=== PATIENT | male | born 1940 | race Caucasian/White ===

== ENCOUNTER 2024-06-29 13:33 | Outpatient (AMB) | payer MEDICARE, SELFPAY ==
--- NOTE | 2024-06-29 13:25 | HO.NEPHOV ---
Vital Signs 06/29/24 13:26 Height 6 ft Weight 280 lb BMI 38.0 BP 122/74 Blood Pressure Location Lt brachial Position Sitting Pulse 103 H Pulse Source Pulse Oximeter Pulse Oximetry (%) 93 Oxygen Delivery Method Room Air Intake Visit Reasons: ENP: CKD/ LVM Pit Boss Required: No Accompanied by: Spouse Allergies adhesive tape Allergy (Unknown, Verified 06/29/24 13:26) Hives furosemide Allergy (Unknown, Verified 06/29/24 13:26) Hives onion Allergy (Unknown, Verified 06/29/24 13:26) Hives Medication List - Last Reconciled 06/29/24 by Blake Craig MD albuterol sulfate 90 mcg/actuation 2 inhalations inhalation Q4-6H PRN ascorbic acid (vitamin C) 500 mg PO DAILY aspirin 81 mg PO DAILY benzonatate mg PO DAILY PRN bumetanide 1 mg PO DAILY digoxin 125 mcg PO DAILY wwrepxswjxa-nrkahssik-tjqliwjm 100-62.5-25 mcg (Trelegy Ellipta) 1 ea inhalation DAILY glucosamine sulfate (Glucosamine) 500 mg PO DAILY magnesium oxide 500 mg PO DAILY melatonin 5 mg PO PRN metoprolol tartrate 25 mg PO BID mupirocin calcium 2% appl topical rivaroxaban (Xarelto) 20 mg PO DAILY silver sulfadiazine 1% (SSD) appl topical spironolactone 25 mg PO DAILY zinc acetate (Galzin) 50 mg PO DAILY HPI Comments Details: 84-year-old man with a history of longstanding hypertension congestive heart failure and COPD has been referred for evaluation of chronic kidney disease. Serum creatinine has been staying between 1.4 and 1.6 mg/dL. He was hospitalized at [facility] for COPD. He was on high dose of diuretics which was lowered due to low blood pressure. He also has a history of abdominal aortic aneurysm measuring 4.4 cm. He was seen by vascular surgery. History of chronic venous insufficiency with stasis dermatitis. He is currently being treated by the wound clinic Today was accompanied by his . Jose has history of chronic smoked for several years. He says he still smokes 1 or 2 cigarettes a day. Interestingly he says that he is able to breathe better when he smokes.!! No urinary symptoms like dysuria urgency increased frequency. He has shortness of breath on exertion no chest pain. No nausea or vomiting. [facility] Medical History (Updated 06/29/24 @ 13:45 by Blake Craig MD) Leukocytosis Edema Diabetes Hyperlipidemia Morbid (severe) obesity due to excess calories CKD (chronic kidney disease) Chronic heart failure Chronic obstructive pulmonary disease, unspecified Sepsis Chronic embolism and thrombosis of unspecified deep veins of unspecified lower extremity Chronic ulcer of right foot limited to breakdown of skin Right bundle branch block (RBBB) Atrial fibrillation DVT (deep venous thrombosis) Emphysema lung Mixed hyperlipidemia Essential hypertension Secondary hypercoagulable state Chronic systolic (congestive) heart failure 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 Diabetic foot ulcers Non-pressure chronic ulcer of skin of other sites with unspecified severity Chronic kidney disease, stage 2 (mild) Surgical History History of knee surgery (~2013) History of hernia repair Physical Exam Vital Signs: Last Vital Signs Pulse 103 H 06/29/24 13:26 BP 122/74 06/29/24 13:26 Pulse Ox 93 06/29/24 13:26 Oxygen Delivery Method Room Air 06/29/24 13:26 BMI result Body Mass Index 38.0 Const Nutritional Appearance: obese Neck Neck: Yes supple Resp Auscultation: rhonchi Cardio Palpation: no palpable S3 Heart sounds: no rubs GI Palpation (GI): Soft to palpation Auscultation: normal bowel sounds Neuro Motor exam (neuro): no asterixis Extrem General: Yes edema Results Reviewed Results Reviewed: Cr 1.4 to 1.6 Nephrology Results: No Data to Display Assessment & Plan Assessment & Plan (1) CKD (chronic kidney disease): Code(s): N18.9 - Chronic kidney disease, unspecified Category: Medical Plan Elderly man with a history of longstanding COPD hypertension and congestive heart failure has stage 3 chronic kidney disease. 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 Differential diagnosis would include obstructive uropathy. Recent urine sediments were bland therefore glomerular nephritis or interstitial disease seem unlikely. Recommendations Low-sodium diet Continue current dose of diuretics. Continue overt nephrotoxic agents including NSAIDs. Optimize blood pressure and continue to avoid hypotension. I have initiated workup for CKD including a renal panel along with renal ultrasonogram to assess echogenicity and to rule out hydronephrosis. Basic urine studies were also ordered. Further workup will depend on the outcome of the baseline investigations. Orders: Orders Comprehensive Met. Panel Today N18.9 - Chronic kidney disease, unspecified Total Protein Urine Random Today N18.9 - Chronic kidney disease, unspecified UA and rflx microscopic Today N18.9 - Chronic kidney disease, unspecified Complete Blood Count no Diff Today N18.9 - Chronic kidney disease, unspecified Creatinine Urine Today N18.9 - Chronic kidney disease, unspecified US renal BI Today I10 - Essential (primary) hypertension, N18.9 - Chronic kidney disease, unspecified Coding Level of Care Code New Pt Level 4 (02544) Diagnoses CKD (chronic kidney disease) N18.9
[2024-06-29 13:26] VITALS: BP 122/74; PULSE 103; O2SAT 93; BMI 38.0
--- OUTSIDE RECORDS SUMMARY | 2024-06-29 15:46 | XMS_ITS | Clinical Summary ---
Author Organization [facility] Address [address] [place] [address] Care Team Providers Care Supervisor Machining Name Role Phone Alton Lovelace MD Primary Care Provider [phone] Allergies Active Allergy Reactions Criticality Noted Date Comments Adhesive Tape Rash Low 11/05/2018 Paper tape okay Furosemide Hives,Itching 06/02/2023 Onion Nausea And Vomiting Low 11/05/2018 Medications Medication Sig Dispensed Refills Start Date End Date Status Glucosamine-Chondro it-Vit C-Mn (GLUCOSAMINE CHONDR 1500 COMPLX PO) Take 1 tablet by mouth daily. 0 Active rivaroxaban (Xarelto) 20 MG TABS tablet Take 1 tablet (20 mg total) by mouth every evening. 30 tablet 3 01/27/2021 Active albuterol 108 (90 Base) MCG/ACT inhaler Inhale 2 puffs into the lungs 4 (four) times a day. 0 02/26/2021 Active vitamin C (ASCORBIC ACID) 250 MG tablet Take 2 tablets (500 mg total) by mouth daily. 0 Active aspirin EC 81 MG tablet Take 1 tablet (81 mg total) by mouth daily. 0 Active zinc sulfate (ZINCATE) 220 (50 Zn) MG capsule Take 1 capsule (220 mg total) by mouth daily. 0 Active digoxin (LANOXIN) 125 MCG tabletIndications:L ongstanding persistent atrial fibrillation (HCC) Take 1 tablet (125 mcg total) by mouth daily. 90 tablet 3 08/18/2023 Active SSD 1 % cream 2 (two) times a day. 0 08/31/2023 Active Naftifine HCl 2 % CREA continuous prn. 0 09/20/2023 Active timolol (TIMOPTIC) 0.5 % ophthalmic solution MIX WITH MUPIROCIN OINTMENT AND SILVADENE CREAM AND APPLY MIXTURE TWICE DAILY TO LEG WOUNDS 0 10/17/2023 Active mupirocin (BACTROBAN) 2 % ointment APPLY TWICE DAILY TO LEG WOUNDS 0 10/16/2023 Active Trelegy Ellipta 100-62.5-25 MCG/ACT AEPB 1 puff by Inhaled route daily. 0 10/05/2023 Active Melatonin 5 MG CAPS Take 5 mg by mouth every night at bedtime. 0 Active Magnesium 500 MG CAPS Take 500 mg by mouth daily. 0 Active guaiFENesin (MUCINEX) 600 MG 12 hr tablet Take 1 tablet (600 mg total) by mouth 2 (two) times a day. 14 tablet 0 10/22/2023 Active metoprolol tartrate (LOPRESSOR) 50 MG tablet TAKE 1 TABLET BY MOUTH TWICE DAILY 180 tablet 3 12/02/2023 Active bumetanide (BUMEX) 2 MG tabletIndications:B ilateral leg edema Take 1 tablet (2 mg total) by mouth daily. 1 tablet 0 12/30/2023 Active spironolactone (ALDACTONE) tablet 50 mgIndications:Bilat eral leg edema Take 1 tablet (50 mg total) by mouth daily. 1 tablet 0 12/30/2023 Active mupirocin (BACTROBAN) 2 % cream Apply to affected area 3 times daily 30 g 0 02/03/2024 02/02/2025 Active Active Problems Problem Noted Date Diagnosed Date Sepsis 12/25/2023 COPD exacerbation 10/21/2023 COPD with acute exacerbation 10/21/2023 Community acquired pneumonia of left lower lobe of lung 10/21/2023 Persistent atrial fibrillation 03/16/2023 DVT of lower extremity, bilateral 01/04/2021 Acute bilateral deep vein thrombosis (DVT) of fe moral veins 01/04/2021 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 02/08/2018 Left ventricular hypertrophy 09/05/2016 Hypertension Abnormal ECG Right bundle branch block History of cardiac catheterization Overview: No obstructive CAD Bilateral leg edema Resolved Problems Problem Noted Date Diagnosed Date Resolved Date Paroxysmal atrial fibrillation 02/11/2021 03/16/2023 Family History Medical History Relation Name Comments Heart failure Father Relation Name Status Comments Father Social History Tobacco Use Types Packs/Day Years Used Date Smoking Tobacco: Every Day Cigarettes 0.3 Passive Smoke Exposure: Current Smokeless Tobacco: Never Tobacco Cessation:Ready to Q uit: Not Asked; Counseling Given: Not Answered Alcohol Use Standard Drinks/Week Comments No 0 (1 standard drink = 0.6 oz pur e alcohol) Sex and Gender Information Value Date Recorded Sex Assigned at Male 11/10/2018 10:35 AM EDT Gender Identity Not on file Sexual Orientation Not on file Job Start Date Occupation Industry Not on file Not on file Not on file Last Filed Vital Signs Vital Sign Reading Time Taken Comments Blood Pressure 99/62 03/12/2024 2:00 AM EDT Pulse 116 03/12/2024 2:00 AM EDT Temperature 36.8 ??C (98.3 ??F) 03/12/2024 2:00 AM ED T Respiratory Rate 58 03/12/2024 2:00 AM EDT Oxygen Saturation 94% 03/12/2024 2:06 AM EDT Inhaled Oxygen Concentration - - Weight 124.7 kg (275 lb) 12/28/2023 9:06 AM EDT Height 182.9 cm (6') 12/28/2023 9:08 AM EDT Body Mass Index 37.3 12/28/2023 9:06 AM EDT Plan of Treatment Health Maintenance Due Date Last Done Comments COVID-19 Vaccine (#1) 1940 Pneumococcal Vaccine (1 of 2 - PCV) 1946 Depression Screening 1952 BMI Counseling 1958 Preventative Health Evaluation 1958 Tobacco Cessation Counseling 1958 DTap / Tdap / Td (1 - Tdap) 1959 Shingrix-Zoster Vaccine (1 of 2) 1990 Fall Risk Assessment 2005 RSV Adult > 60+ Yrs or Pregn ant (1 - 1-dose 75+ series) 2015 Influenza Vaccine (#1) 2024 Hepatitis B Vaccines Aged Out No long er eligible based on patient's age to complete this topic RSV Ped < 20 months Aged Out No longe r eligible based on patient's age to complete this topic Medical Devices Implanted Type Area Outbound Sales Agent Device Identifier Shelf Expiration Date Model / Serial / Lot Lens Acrysof Iq Natrl 0d +22.5d L 13mm 6mm Acrylic 118.7 A - [id number] - [id number] Implanted:Qty: 1 on 11/10/2018 by Rashard Villalobos MD at [facility] Location Left: Eye [employer] 09/28/2022 [id number] / [id number] / Lens Acrysof 0d +23d L 13mm 6mm Acrylic 118.7 A - [id number] - [id number] Implanted:Qty: 1 on 11/16/2018 by Rashard Villalobos MD at 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 Code Status History Code Status Date Activated Date Inactivated Comments DNR 12/25/2023 2:11 PM 12/26/2023 8:19 PM This code status was ascertained in the following way: patient. Full Code 12/25/2023 1:52 PM 12/25/2023 2:11 PM This code status was ascertained in the following way: patient. Full Code 10/21/2023 4:40 PM 10/22/2023 7:21 PM This code status was ascertained in the following way: discussion with patient . Full Code 01/04/2021 9:14 PM 01/05/2021 11:06 PM This c ode status was ascertained in the following way: Discussed . Care Teams Supervisor Machining Relationship Specialty Start Date End Date Alton Lovelace MD [address] [place] [address] PCP - General Internal Medicine 07/20/15
--- OUTSIDE RECORDS SUMMARY | 2024-06-29 15:46 | XMS_ITS | Encounter Summary ---
Author Organization [facility] Address [address] [place] [address] Care Team Providers Care Stove Mechanic Name Role Phone Alton Lovelace MD Unavailable [phone] Alton Lovelace MD Primary Care Provider Eric Barth MD Unavailable [phone] Encounter Details Date Type Department Care Team (Late st Contact Info) Description 12/16/2023 Scanned Document [facility] [address] [phone] Primary Care, Scan Social History Tobacco Use Types Packs/Day Years Used Date Smoking Tobacco: Never Assessed Sex and Gender Information Value Date Recorded Sex Assigned at Male 12/16/2023 1:08 PM EDT Gender Identity Male 12/16/2023 1:08 PM EDT Sexual Orientation Heterosexual (straight) 12/15 1:08 PM EDT documented as of this encounter Plan of Treatment Upcoming Encounters Date Type Department Care Team (Late st Contact Info) Description 08/22/2024 11:20 AM EDT Office Visit [facility] [address] [phone] Eric Barth MD [address] [id number] 10/06/2024 11:00 AM EDT Appointment [facility] [place] [address] [place] [id number] Eric Barth MD 7 [facility] [address] [place] [address] documented as of this encounter Visit Diagnoses Not on filedocumented in this encounter Additional Health Concerns Infection Onset Date Last Indicated Resolved Time R/O Respiratory Disease 03/12/2024 03/12/202403/01 11:42 PM EDT documented as of this encounter Care Teams Stove Mechanic Relationship Specialty Start Date End Date Alton Lovelace MD [address] [place] [address] PCP - APNCT [employer] Attributed 06/01/22 Alton Lovelace MD [address] [place] [address] PCP - General Internal Medicine 12/16/23 Eric Barth MD [address] [place] [address] Primary Hide Buffer Cardiovascular Disease 12/24/23 documented as of this encounter
--- OUTSIDE RECORDS SUMMARY | 2024-06-29 15:46 | XMS_ITS | Encounter Summary ---
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 (CMS/HCC) (Primary Dx); 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 (CMS/HCC); Lymphedema Social History Tobacco Use Types Packs/Day Years Used Date Smoking Tobacco: Every Day Cigarettes Smokeless Tobacco: Never Alcohol Use Standard Drinks/Week Comments No 0 (1 standard drink = 0.6 oz pur e alcohol) Sex and Gender Information Value Date Recorded Sex Assigned at Not on file Gender Identity Not on file Sexual Orientation Not on file Job Start Date Occupation Industry Not on file Not on file Not on file documented as of this encounter Last Filed Vital Signs Vital Sign Reading Time Taken Comments Blood Pressure 130/75 06/21/2024 12:48 PM EST Pulse 92 06/21/2024 12:48 PM EST Temperature 36.9 ??C (98.4 ??F) 06/21/2024 12:[address] Respiratory Rate - - Oxygen Saturation - - Inhaled Oxygen Concentration - - Weight - - Height - - Body Mass Index - - documented in this encounter Ordered Prescriptions Prescription Sig Dispensed Refills Start Date End Da te lidocaine (XYLOCAINE) 4 % external solution Apply topically 1 (one) time each day. 100 mL 1 06/21/2024 mupirocin (BACTROBAN) 2 % ointment Apply topically 1 (one) time each day. 30 g 06/21/2024 07/21/2024 documented in this encounter Progress Notes * Chantal [facility] RN - 06/21/2024 12:30 PM EST PHYSICIAN ORDERS Go to ER if present with fever, shaking, chills, increased redness, or excess drainage. If you have any questions or concerns, please contact the wound center at Dept: [phone] Edema Control: Compression/Edema control: Medium Compression-Spandagrip (10-20 mmHg)Apply first thing in the morning, may remove at bedtime, unless otherwise directed. Avoid prolonged standing in one place for extended periods of time. Elevate leg(s) above level of heart when seated. Hand Hygiene: (W)codi hands before and after wound care. Call Wound Center at Dept: [phone] you have signs and symptoms of infection such as fever, chills, unusual or increased drainage, increasing odor, or unusual redness. WOUND #1 Right medial ankle Wound Cleansing & Dressings: Muciprocin 2% to wound bed Adaptic alginate, abd, kerlix,Tubi G Every other day WOUND #2 Left medial ankle Wound Cleansing & Dressings: Muciprocin 2% to wound bed Adaptic alginate, abd, kerlix, Tubi G Every other day WOUND #3 Left medial ankle Wound Cleansing & Dressings: Muciprocin 2%o wound bed Adaptic alginate, abd, kerlix, Tubi G Every other day Diet: Increase protein intake Misc/Additional orders: Misc/Additional orders: Smoking cessation was encouraged. Chantal [facility] RN Wound Care Supplies (Order ID: [id number]) Order Date: 04/06/2024 Diagnosis: Venous (peripheral) insufficiency (I87.2) Quantity: 1 Physician orders applied at clinic The rmkq-ta-[id number] evaluation was completed by: Sukhjinder Trotter MD Left leg venous ulcer Wound Care Supplies: Adaptic Wound Care Supplies: Aquacel AG (hydro-fiber) Wound Care Supplies: Abdominal Pads Wound Care Supplies: Kerlix (large) Wound Care Supplies: Medipore tape Compression: TUBI F Adaptic Size: 3x8 Days Supply: 30 Wound Care Refill Qty: 1 Debridement Performed: Yes Wound Drainage: Moderate Dispense As Written (NASH)? 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 Office Visit Visit Date: 06/21/2024 Patient Name: Jose Gonzáles Date of : 1940 PCP: Alton Lovelace MD HPI: Jose Gonzáles is a 84 y.o. male presents to the wound care center for follow up evaluation and management of right lower extremity wound. He reports new wounds to the right medial and lateral ankle Denies has been unable to tolerate his multilayer compression dressings. He has a history of A-fib, hyperlipidemia and hypertension. Past Medical History: Diagnosis Date Abnormal ECG DX:Abnormal ECG Atrial fibrillation (CMS/HCC) DX:Atrial fibrillation (HCC) Bilateral leg edema DX:Bilateral leg edema Cataract DX:Cataract DVT (deep venous thrombosis) (CMS/HCC) DX:DVT (deep venous thrombosis) (HCC) History of cardiac catheterization 2011 DX:History of cardiac catheterization;COMMENT:No obstructive CAD Hypertension DX:Hypertension Mixed hyperlipidemia DX:Mixed hyperlipidemia Right bundle branch block DX:Right bundle branch block Patient Active Problem List Diagnosis Abnormal ECG Bilateral leg edema Acute bilateral deep vein thrombosis (DVT) of femoral veins (CMS/HCC) 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 ascorbic acid (VITAMIN C) 250 mg tablet Take 500 mg by mouth daily. aspirin 81 mg EC tablet Take 81 mg by mouth daily. betamethasone dipropionate (DIPROSONE) 0.05 % cream APPLY TO PROBLEM AREAS TWICE DAILY NO LONGER THAN 2 WEEKS THEN DAILY NEEDED bumetanide (BUMEX) 1 mg tablet Take 1 tablet (1 mg total) by mouth daily. digoxin (LANOXIN) 125 mcg (0.125 mg) tablet Take 1 tablet (125 mcg total) by mouth daily. qpfxmomalhg-pkkpobcffvqy-hljljkgzaj (Trelegy Ellipta) 200-62.5-25 mcg inhaler Take 1 puff by mouth daily. furosemide (LASIX) 20 mg tablet Take 1 tablet (20 mg total) by mouth daily. furosemide (LASIX) 40 mg tablet Take 1 tablet (40 mg total) by mouth daily. glucosamine/chondro major A/C/Mn (QNPOVUJLJQG-WWQELZKIE-WLS C-MN ORAL) Take by mouth. hydrOXYzine pamoate (VistariL) 25 mg capsule Take 1 capsule (25 mg total) by mouth 3 (three) times a day if needed for itching for up to 10 days. 30 capsule 0 magnesium oxide (MAG-OX) 400 mg (241.3 elemental magnesium) tablet Take 1 tablet (400 mg total) by mouth daily. metoprolol tartrate (LOPRESSOR) 50 mg tablet TAKE 1 TABLET BY MOUTH TWICE DAILY rivaroxaban (XARELTO) 20 mg tablet Take 1 tablet (20 mg total) by mouth every evening. spironolactone (ALDACTONE) 25 mg tablet Take 0.5 tablets (12.5 mg total) by mouth daily. timolol (TIMOPTIC) 0.5 % ophthalmic solution MIX WITH MUPIROCIN OINTMENT AND SILVADENE CREAM AND APPLY MIXTURE TWICE DAILY TO LEG WOUNDS zinc sulfate (ZINCATE) 220 mg (50 mg elemental zinc) capsule Take 1 capsule (220 mg total) by mouthdaily. No current facility-administered medications on file prior to visit. ROS Review of Systems Constitutional: Negative. HENT: Negative. Respiratory: Negative. Cardiovascular: Positive for leg swelling. Gastrointestinal: Negative. Skin: Positive for wound. Neurological: Negative. Psychiatric/Behavioral: Negative. Vital Signs: Visit Vitals BP 130/75 (BP Location: Left arm, Patient Position: Sitting) Pulse 92 Temp 36.9 ??C (98.4 ??F) (Tympanic) Smoking Status Every Day PHYSICAL EXAM Physical Exam Constitutional: Appearance: Normal appearance. HENT: Head: Normocephalic. Cardiovascular: Rate and Rhythm: Normal rate. Pulmonary: Effort: Pulmonary effort is normal. Abdominal: General: Abdomen is flat. Musculoskeletal: General: Normal range of motion. Skin: General: Skin is warm and dry. Findings: Wound present. Neurological: Mental Status: He is alert. Psychiatric: Mood and Affect: Mood normal. Wound: As described below. WOUND ASSESSMENT If photograph of wound not visible on this note, please check under Media tab. Wound Venous Ulcer 04/06/24 Pretibial Left (Active) Wound Image 06/21/24 1301 Wound Bed Tissue Assessment Red 06/21/24 1200 Shape Irregular 06/21/24 1200 Wound Length (cm) 4 cm 06/21/24 1200 Wound Width (cm) 4.5 cm 06/21/24 1200 Wound Surface Area (cm^2) 18 cm^2 06/21/24 1200 Wound Depth (cm) 0.1 cm 06/21/24 1200 Wound Volume (cm^3) 1.8 cm^3 06/21/24 1200 Wound Healing % 95 06/21/24 1200 Drainage Description Serosanguineous 06/21/24 1200 Drainage Amount Moderate 06/21/24 1200 Treatments Site care;Cleansed 06/21/24 1200 Dressing Changed Changed 06/21/24 1200 Dressing Status Old drainage 06/21/24 1200 Wound Bed Granulation (%) 100 % 06/21/24 1200 Wound Bed Slough (%) 10 % 05/04/24 1200 Wound Bed Eschar (%) 25 % 04/20/24 1100 Tunneling 0 cm 04/06/24 1502 Undermining 0 cm 04/06/24 1502 Edges Attached edges 06/21/24 1200 Wound Venous Ulcer 06/07/24 Pretibial Right (Active) Wound Image 06/21/24 1300 Shape Irregular 06/07/24 1255 Wound Length (cm) 0 cm 06/21/24 1200 Wound Width (cm) 0 cm 06/21/24 1200 Wound Surface Area (cm^2) 0 cm^2 06/21/24 1200 Wound Depth (cm) 0 cm 06/21/24 1200 Wound Volume (cm^3) 0 cm^3 06/21/24 1200 Wound Healing % 100 06/21/24 1200 Drainage Description Serosanguineous 06/07/24 1255 Drainage Amount Moderate 06/07/24 1255 Treatments Cleansed;Site care 06/07/24 1255 Wound Bed Granulation (%) 100 % 06/07/24 1255 Edges Well-defined edges 06/07/24 1255 Wound Venous Ulcer 06/21/24 Ankle Right;Medial (Active) Wound Image 06/21/24 1301 Ana Rosa-Wound Assessment Macerated 06/21/24 1301 Shape Irregular 06/21/24 1301 Wound Length (cm) 2.8 cm 06/21/24 1301 Wound Width (cm) 1.4 cm 06/21/24 1301 Wound Surface Area (cm^2) 3.92 cm^2 06/21/24 1301 Wound Depth (cm) 0.1 cm 06/21/24 1301 Wound Volume (cm^3) 0.392 cm^3 06/21/24 1301 Drainage Description Serosanguineous 06/21/24 1301 Drainage Amount Large 06/21/24 1301 Treatments Cleansed;Site care 06/21/24 1301 Wound Bed Granulation (%) 50 % 06/21/24 1301 Wound Bed Slough (%) 100 % 06/21/24 1301 Edges Attached edges 06/21/24 1301 Wound Venous Ulcer 06/21/24 Ankle Right;Lateral (Active) Wound Image 06/21/24 1302 Ana Rosa-Wound Assessment Macerated 06/21/24 1302 Wound Length (cm) 5.6 cm 06/21/24 1302 Wound Width (cm) 1.3 cm 06/21/24 1302 Wound Surface Area (cm^2) 7.28 cm^2 06/21/24 1302 Wound Depth (cm) 0.1 cm 06/21/24 1302 Wound Volume (cm^3) 0.728 cm^3 06/21/24 1302 Drainage Description Serosanguineous 06/21/24 1302 Drainage Amount Copious 06/21/24 1302 Treatments Cleansed;Site care 06/21/24 1302 Wound Bed Slough (%) 100 % 06/21/24 1302 Edges Attached edges 06/21/24 1302 Pertinent Labs: Albumin Date Value Ref Range Status 05/13/2024 4.0 3.5 - 5.0 g/dL Final WBC Date Value Ref Range Status 05/13/2024 12.3 (H) 4.0 - 10.5 K/mcL Final Hemoglobin A1C Date Value Ref Range Status 05/13/2024 6.1 (H) <5.7 % Final Debridement Note: Debridement Venous Ulcer Right;Medial Ankle Performed by: Blossom Bradley NP Authorized by: Blossom Bradley NP Associated wounds: Wound Venous Ulcer 06/21/24 Ankle Right;Medial Consent: Consent obtained: Written Consent given by: Patient Risks discussed: Yes Time out: Immediately prior to the procedure a time out was called Time out performed at: 06/21/2024 2:00 PM Debridement Details: Performed by: DARINEL Type: selective Pain control: Lidocaine 5% Pain control administration: topical anesthesia Time taken: 06/21/2024 1:01 PM Length (cm): 2.8 Width (cm): 1.4 Depth (cm): 0.1 Area (cm^2): 3.92 Time taken: 06/21/2024 1:02 PM Length (cm): 2.8 Width (cm): 1.4 Depth (cm): 0.1 Percent Debrided (%): 100 Surface Area (cm^2): 3.92 Area Debrided (cm^2): 3.92 Volume (cm^3): 0.39 Tissue and other material debrided: dermis and epidermis Devitalized tissue debrided: exudate, fibrin and slough Instrument: Curette Amount of bleeding: none Hemostasis obtained with: Not applicable Procedural pain: 0 Post-procedural pain: 0 Response to treatment: Procedure was tolerated well PLAN OF CARE 1. 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 (CMS/HCC) 3. Lymphedema Provider Orders: Patient Instructions PHYSICIAN ORDERS Go to ER if present with fever, shaking, chills, increased redness, or excess drainage. If you have any questions or concerns, please contact the wound center at Dept: [phone] Edema Control: Compression/Edema control: Medium Compression-Spandagrip (10-20 mmHg)Apply first thing in the morning, may remove at bedtime, unless otherwise directed. Avoid prolonged standing in one place for extended periods of time. Elevate leg(s) above level of heart when seated. Hand Hygiene: (W)codi hands before and after wound care. Call Wound Center at Dept: [phone] you have signs and symptoms of infection such as fever, chills, unusual or increased drainage, increasing odor, or unusual redness. WOUND #1 Right medial ankle Wound Cleansing & Dressings: Muciprocin 2% to wound bed Adaptic alginate, abd, kerlix,Tubi G Every other day WOUND #2 Left medial ankle Wound Cleansing & Dressings: Muciprocin 2% to wound bed Adaptic alginate, abd, kerlix, Tubi G Every other day WOUND #3 Left medial ankle Wound Cleansing & Dressings: Muciprocin 2%o wound bed Adaptic alginate, abd, kerlix, Tubi G Every other day Diet: Increase protein intake Misc/Additional orders: Misc/Additional orders: Smoking cessation was encouraged. Chantal [facility] RN Wound Care Supplies (Order ID: [id number]) Order Date: 04/06/2024 Diagnosis: Venous (peripheral) insufficiency (I87.2) Quantity: 1 Physician orders applied at clinic The [id number]-[id number] evaluation was completed by: Sukhjinder Trotter MD Left leg venous ulcer Wound Care Supplies: Adaptic Wound Care Supplies: Aquacel AG (hydro-fiber) Wound Care Supplies: Abdominal Pads Wound Care Supplies: Kerlix (large) Wound Care Supplies: Medipore tape Compression: TUBI F Adaptic Size: 3x8 Days Supply: 30 Wound Care Refill Qty: 1 Debridement Performed: Yes Wound Drainage: Moderate Dispense As Written (NASH)? Yes Frequency of Dressing Change: 3x per week Face to face evaluation was performed on: 04/06/2024 Goals for the wound(s): -Healing goal is a reduction in wound volume of 30% at 4 weeks, 50% at 8 weeks, 75% at 12 weeks, and 100% at 16 weeks. Will continually reassess and adjust the treatment strategy if not on the healing curve. Potential to heal: Good potential to Heal Plan: Would benefit from lymphedema pumps to manage swelling. Change to mupirocin ointment as contact All questions were answered to his satisfaction. He was counseled regarding my impressions, instructions for management, and the importance of compliance with treatment. The wound will be continually assessed for the presence of infection. If infection is suspected, appropriate intervention or referral to infection disease specialist will be considered. The patient has been educated concerning the need for increased protein in his diet for wound healing. It is also recommended that he work with his PCP to optimize his metabolic status and glycemic control as appropriate. Follow up in about 1 week (around 06/28/2024), or if symptoms worsen or fail to improve. 06/21/2024 4:05 PM EST Blossom Bradley NP documented in this encounter Plan of Treatment Upcoming Encounters Date Type Department Care Team (Late st Contact Info) Description 07/01/2024 2:00 PM EST Office Visit [facility] [address] [place] [address] Catarina Jackson PA [address] [place] [address] documented as of this encounter Goals Goal Patient Goal Type Associated Problems Recent Progress Patient-Stated? Author Decrease Wound Volume by X% by date (in notes) Care Plan Impaired Tissue Luca Urias RN Patient and Caregiver Understand Wound Care Education Care Plan Impaired Tissue No Luca Rivas sugar house supervisor volume breakdown reduced by X% by week 4 Care Plan Impaired Tissue No Luca Rivas, sugar house supervisor volume breakdown reduced by X% by week 8 Care Plan Impaired Tissue No Luca Rivas sugar house supervisor volume breakdown reduced by X% by week 12 Care Plan Impaired Tissue On track( 024 3:43 PM EST) Luca Urias RN Note: Wound will be by 80% in 12 weeks Quit using tobacco (cigarettes, smokeless, etc) Care Plan Education needed on impact of smoking on wound No Luca Rivas RN Reduce tobacco use (cigarettes, smokeless, etc) Care Plan Education needed on impact of smoking on wound No Luca Rivas RN Decrease Wound Volume by X% by date (in notes) Care Plan Education needed on impact of smoking on wound No Luca Rivas RN Patient and Caregiver Understand Wound Care Education Care Plan Education needed related to ulceration/compr omised skin integrity. 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 06/21/2024 ??4:18 PM Debridement Venous Ulcer Right;Medial Ankle Performed by: Blossom Bradley NP Authorized by: Blossom Bradley NP ?? Associated wounds: Wound Venous Ulcer 06/21/24 Ankle Right;Medial Consent: ??Consent obtained: ??Written ??Consent given by: ??Patient ??Risks discussed: Yes ?? Time out: Immediately prior to the procedure a time out was called ?? Time out performed at: ??06/21/2024 2:00 PM Debridement Details: ??Performed by: ??OPERATOR VACUUM ??Type: selective ?Pain control: ??Lidocaine 5% ??Pain control administration: topical anesthesia ?Time taken: ??06/21/2024 1:01 PM ??Length (cm): ??2.8 ??Width (cm): ??1.4 ??Depth (cm): ??0.1 ??Area (cm^2): ??3.92 ??Time taken: ??06/21/2024 1:02 PM ??Length (cm): ??2.8 ??Width (cm): ??1.4 ??Depth (cm): ??0.1 ??Percent Debrided (%): ??100 ??Surface Area (cm^2): ??3.92 ??Area Debrided (cm^2): ??3.92 ??Volume (cm^3): ??0.39 ??Tissue and other material debrided: dermis and epidermis ?Devitalized tissue debrided: exudate, fibrin and slough ?Instrument: ??Curette ??Amount of bleeding: none ?Hemostasis obtained with: ??Not applicable ??Procedural pain: ??0 ??Post-procedural pain: ??0 ??Response to treatment: ??Procedure was tolerated well Blossom Bradley OPERATOR VACUUM IN CLINIC/BEDSIDE OR DERABLES documented in this encounter Visit Diagnoses Diagnosis 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 04/06/2024 documented as of this encounter Care Teams Size Worker Relationship Specialty Start Date End Date Alton Lovelace MD [address] [place] [phone] PCP - General Internal Medicine 07/20/15 documented as of this encounter
--- OUTSIDE RECORDS SUMMARY | 2024-06-29 15:46 | XMS_ITS | Encounter Summary ---
Author Organization [facility] Address [address] [place] [address] Care Team Providers Care Bale Tie Machine Operator Name Role Phone Alton Lovelace MD Unavailable [phone] Alton Lovelace MD Primary Care Provider [phone] Eric Barth MD Unavailable [phone] Encounter Details Date Type Department Care Team (Late st Contact Info) Description 03/07/[address] [facility] [address] [address] Eric Barth MD [address] [place] [id number] Social History Tobacco Use Types Packs/Day Years Used Date Smoking Tobacco: Some Days Cigarettes Smokeless Tobacco: Never Alcohol Use Standard Drinks/Week Comments Never 0 (1 standard drink = 0.6 oz [...] Description 08/22/2024 11:20 AM EDT Office Visit [facility] [address] [address] Eric Barth MD 7 [facility] [address] [place] [address] 10/06/2024 11:00 AM EDT Appointment [facility] [address] [place] [phone] Eric Barth MD 7 [facility] [address] [place] [address] documented as of this encounter Visit Diagnoses Not on filedocumented in this encounter Additional Health Concerns Infection Onset Date Last Indicated Resolved Time R/O Respiratory Disease 03/12/2024 03/12/202403/01 11:42 PM EDT documented as of this encounter Care Teams Bale Tie Machine Operator Relationship Specialty Start Date End Date Alton Lovelace MD [address] [place] [address] PCP - APNCT [employer] Attributed 06/01/22 Alton Lovelace MD [address] [place] [address] PCP - General Internal Medicine 12/16/23 Eric Barth MD [address] [place] [phone] Primary Visitor Services Associate Cardiovascular Disease 12/24/23 documented as of this encounter
--- OUTSIDE RECORDS SUMMARY | 2024-06-29 15:46 | XMS_ITS | Continuity of Care Document ---
Author Organization [facility] Address [address] [facility] [address] [place] [phone] Phone Care Team Providers Care Extrusion Die Coordinator Name Role Phone Judi STEELE, Jogre Unavailable Unavailable Advance Directives Directive Yes / No Effective Date File Name No Information Encounters Encounter Description Practice Location Reason(s) For Visit Diagnoses Date Provider Providers Copied on Encounter [facility], [address] [facility] [address], [place], [place], [id number], [place] tel:[phone] [facility] No Information 2 Judi Patel. [address] [facility] [address], [place], [address], [place]. tel:[phone] Family History Family Member Type Diagnosis Age At Onset No Information Payers Payer name Insurance type Covered green party ID Authoriza tion(s) No Information Social History Type Description Quantity Date Captured Comments Sex Unknown Smoking Status No Information Chief Complaint And Reason For Visit No Information Reason For Referral Reason For Referral No Information History Of Present Illness Encounter Date Complaint History Of Prese nt Illness No Information Functional Status Date Functional Assessmen t No Information Instructions Date Instruction Additional Infor mation No Information Assessments Type Assessment Date No Information Patient Care Teams Name Effective Dates (start - stop) Status Members No Information
--- OUTSIDE RECORDS SUMMARY | 2024-06-29 15:46 | XMS_ITS ---
Author Name [facility] Organization Unknown Results Test Name/Text Value Interpretation Date Range Source POC Glucose 127mg/dL Above high normal [id number] 65 - 99 [facility] Magnesium SerPl-mCnc 2.7mg/dL Normal [id number] 1.6 - 2.7 [facility] AST SerPl-cCnc 19U/L Normal [id number] 10 - 55 [facility] ALT SerPl-cCnc 25U/L Normal [id number] 10 - 55 [facility] Creat SerPl-mCnc 1.4mg/dL Above high normal [id number] 0. 5 - 1.3 [facility] Globulin Ser Calc-mCnc 3g/dL Normal [id number] 1.5 - 3.9 [facility] CO2 SerPl-sCnc 24mmol/L Normal [id number] 22 - 33 [facility] Albumin/Glob SerPl 1.2Ratio Normal [id number] 1 - 3 [facility] Anion Gap Bld-sCnc 9 Normal [id number] 7 - 17 [facility] Potassium SerPl-sCnc 4.6mmol/L Normal [id number] 3.4 - 5.3 [facility] Bilirub SerPl-mCnc 0.2mg/dL Normal [id number] 0.2 - 1 [facility] Calcium SerPl-mCnc 9.1mg/dL Normal [id number] 8.7 - 10.5 [facility] BUN SerPl-mCnc 48mg/dL Above high normal [id number] 8 - 21 [facility] ALP SerPl-cCnc 75U/L Normal [id number] 45 - 128 HH CCT GFR/BSA.pred SerPlBld TTK-GXQ-XyELdy 50 Below low normal [id number] 59 - [facility] Chloride SerPl-sCnc 105mmol/L Normal [id number] 98 - 107 [facility] BUN/Creat SerPl 34Ratio Above high normal [id number] 10 - 25 [facility] Albumin SerPl-mCnc 3.6g/dL Normal [id number] 3.4 - 4. 8 [facility] Prot SerPl-mCnc 6.6g/dL Normal [id number] 6.3 - 8.3 H [facility] Glucose SerPl-mCnc 132mg/dL Above high normal [id number] 65 - 99 [facility] Sodium SerPl-sCnc 138mmol/L Normal [id number] 136 - 145 [facility] Neutrophils num Bld Auto 15.14Thou/uL Above high normal [id number] 2 - 7.5 [facility] Monocytes num Bld Auto 0.99Thou/uL Normal [id number] 0.2 - 1.5 [facility] Eosinophil num Bld Auto 0Thou/uL Normal [id number] 0 - 0.7 [facility] WBC num Bld Auto 17.7Thou/uL Above high normal [id number] 4 - 11 [facility] MCHC RBC Auto-mCnc 32g/dL Normal [id number] 30 - 36 [facility] Monocytes/leuk NFr Bld Auto 5.6% Normal [id number] [facility] Hct VFr Bld Auto 41.5% Normal [id number] 39 - 54 [facility] RBC num Bld Auto 4.1Mil/uL Below low normal [id number] 4.5 - 6.2 [facility] RDW RBC Auto-Rto 13.6% Normal [id number] 11.5 - 14.5 [facility] PMV Bld Auto 9.2fL Normal [id number] 7.5 - 12.5 [facility] Eosinophil/leuk NFr Bld Auto 0% Normal [id number] [facility] MCH RBC Qn Auto 32.4pg Above high normal [id number] 27 - 31 [facility] Basophils/leuk NFr Bld Auto 0.2% Normal [id number] [facility] Basophils num Bld Auto 0.03Thou/uL Normal [id number] 0 - 0.2 [facility] Platelet num Bld Auto 235Thou/uL Normal [id number] 150 - 450 [facility] Neutrophils/leuk NFr Bld Auto 85.4% Normal [id number] [facility] MCV RBC Auto 101fL Above high normal [id number] 80 - 1 00 [facility] Lymphocytes/leuk NFr Bld Auto 8% Normal [id number] [facility] Lymphocytes num Bld Auto 1.42Thou/uL Below low normal [id number] 1.5 - 4.5 [facility] Imm Granulocytes/leuk NFr Bld Auto 0.8% Normal [id number] [facility] Hgb Bld-mCnc 13.3g/dL Normal [id number] 13 - 17.7 [facility] T Imm Granulocytes num Bld Auto 0.15Thou/uL Above high normal [id number] 0 - 0.1 [facility] POC Glucose 146mg/dL Above high normal [id number] 65 - 99 [facility] POC Glucose 167mg/dL Above high normal [id number] 65 - 99 [facility] POC Glucose 164mg/dL Above high normal [id number] 65 - 99 [facility] Digoxin SerPl-mCnc 0.6ug/L Normal [id number] 0.5 - 1. 1 [facility] POC Glucose 168mg/dL Above high normal [id number] 65 - 99 [facility] POC Glucose 155mg/dL Above high normal [id number] 65 - 99 [facility] Calcium SerPl-mCnc 9.5mg/dL Normal [id number] 8.7 - 10.5 [facility] BUN SerPl-mCnc 43mg/dL Above high normal [id number] 8 - 21 [facility] Creat SerPl-mCnc 1.5mg/dL Above high normal [id number] 0. 5 - 1.3 [facility] GFR/BSA.pred SerPlBld CEZ-DSR-TwMDeu 46 Below low normal [id number] 59 - [facility] Chloride SerPl-sCnc 99mmol/L Normal [id number] 98 - 107 [facility] BUN/Creat SerPl 29Ratio Above high normal [id number] 10 - 25 [facility] CO2 SerPl-sCnc 23mmol/L Normal [id number] 22 - 33 HH CCT Anion Gap Bld-sCnc 12 Normal [id number] 7 - 17 [facility] Potassium SerPl-sCnc 4.7mmol/L Normal [id number] 3.4 - 5.3 [facility] Glucose SerPl-mCnc 170mg/dL Above high normal [id number] 65 - 99 [facility] Sodium SerPl-sCnc 134mmol/L Below low normal [id number] 13 6 - 145 [facility] Magnesium SerPl-mCnc 2.5mg/dL Normal [id number] 1.6 - 2.7 [facility] Neutrophils num Bld Auto 20.45Thou/uL Above high normal [id number] 2 - 7.5 [facility] Monocytes num Bld Auto 0.8Thou/uL Normal [id number] 0.2 - 1.5 [facility] Eosinophil num Bld Auto 0Thou/uL Normal [id number] 0 - 0.7 [facility] WBC num Bld Auto 22.8Thou/uL Above high normal [id number] 4 - 11 [facility] MCHC RBC Auto-mCnc 32.5g/dL Normal [id number] 30 - 36 [facility] Monocytes/leuk NFr Bld Auto 3.5% Normal [id number] [facility] Hct VFr Bld Auto 40% Normal [id number] 39 - 54 [facility] RBC num Bld Auto 4.01Mil/uL Below low normal [id number] 4. 5 - 6.2 [facility] RDW RBC Auto-Rto 13.3% Normal [id number] 11.5 - 14.5 [facility] PMV Bld Auto 9.4fL Normal [id number] 7.5 - 12.5 [facility] Eosinophil/leuk NFr Bld Auto 0% Normal [id number] [facility] MCH RBC Qn Auto 32.4pg Above high normal [id number] 27 - 31 [facility] Basophils/leuk NFr Bld Auto 0.2% Normal [id number] [facility] Basophils num Bld Auto 0.04Thou/uL Normal [id number] 0 - 0.2 [facility] Platelet num Bld Auto 245Thou/uL Normal [id number] 150 - 450 [facility] Neutrophils/leuk NFr Bld Auto 89.9% Normal [id number] [facility] MCV RBC Auto 100fL Normal [id number] 80 - 100 [facility] T Lymphocytes/leuk NFr Bld Auto 5.5% Normal [id number] [facility] Lymphocytes num Bld Auto 1.25Thou/uL Below low normal [id number] 1.5 - 4.5 [facility] Granulocytes/leuk NFr Bld Auto 0.9% Normal [id number] [facility] Hgb Bld-mCnc 13g/dL Normal [id number] 13 - 17.7 [facility] T Imm Granulocytes num Bld Auto 0.21Thou/uL Above high normal [id number] 0 - 0.1 [facility] POC Glucose 164mg/dL Above high normal [id number] [facility] POC Glucose 238mg/dL Above high normal [id number] [facility] FLUAV RNA Nph Ql Non-probe PCR Normal [id number] [facility] HPIV2 RNA Nph Ql Non-probe PCR Normal [id number] [facility] B pert tox prom reg Nph Ql Non-probe PCR Normal [id number] [facility] HCoV 229E RNA Nph Ql Non-probe PCR Normal [id number] [facility] HCoV OC43 RNA Nph Ql Non-probe PCR Normal [id number] [facility] FLUBV RNA Nph Ql Non-probe PCR Normal [id number] [facility] HPIV1 RNA Nph Ql Non-probe PCR Normal [id number] [facility] 2019-nCOV RNA Normal [id number] [facility] CT M pneumo DNA Nph Ql Non-probe PCR Normal [id number] [facility] Bordetella parapertussis Normal [id number] [facility] hMPV RNA Nph Ql Non-probe PCR Normal [id number] [facility] HCoV HKU1 RNA Nph Ql Non-probe PCR Normal [id number] [facility] HAdV DNA Nph Ql Non-probe PCR Normal [id number] [facility] C pneum DNA Nph Ql Non-probe PCR Normal [id number] [facility] RV+EV RNA Nph Ql Non-probe PCR Normal [id number] [facility] HPIV4 RNA Nph Ql Non-probe PCR Normal [id number] [facility] HCoV NL63 RNA Nph Ql Non-probe PCR Normal [id number] [facility] HPIV3 RNA Nph Ql Non-probe PCR Normal [id number] [facility] RSV RNA Nph Ql Non-probe PCR Normal [id number] [facility] POC Glucose 194mg/dL Above high normal 65 - 99 [facility] POC Glucose 181mg/dL Above high normal [id number] 65 - 99 [facility] Lactate SerPl-sCnc 2.7mmol/L Above high normal [id number] 0.5 - 1.9 [facility] Procalcitonin SerPl EIA-mCnc 0.33ng/mL Above high normal [id number] - 0.09 [facility] Hgb A1c MFr Bld 6.1% Above high normal [id number] - 5 .7 [facility] Est. average glucose Bld gHb Est-mCnc 128mg/dL Normal [id number] [facility] POC Glucose 188mg/dL Above high normal [id number] 65 - 99 [facility] Lactate SerPl-sCnc 2.6mmol/L Above high normal 0.5 - 1.9 [facility] Lactate SerPl-sCnc 2.5mmol/L Above high normal [id number] 0.5 - 1.9 [facility] pro BNP, N-terminal 734pg/mL Above high normal [id number] - 450 [facility] Calcium SerPl-mCnc 9.7mg/dL Normal [id number] 8.7 - 10.5 [facility] BUN SerPl-mCnc 29mg/dL Above high normal [id number] 8 - 21 [facility] Creat SerPl-mCnc 1.6mg/dL Above high normal [id number] 0. 5 - 1.3 [facility] GFR/BSA.pred SerPlBld JLM-OLX-IdQUer 42 Below low normal [id number] 59 - [facility] Chloride SerPl-sCnc 102mmol/L Normal [id number] 98 - 107 [facility] BUN/Creat SerPl 18Ratio Normal [id number] 10 - 25 H [facility] CO2 SerPl-sCnc 22mmol/L Normal [id number] 22 - 33 HH CCT Anion Gap Bld-sCnc 13 Normal [id number] 7 - 17 [facility] Potassium SerPl-sCnc 4.7mmol/L Normal [id number] 3.4 - 5.3 [facility] Glucose SerPl-mCnc 207mg/dL Above high normal [id number] 65 - 99 [facility] Sodium SerPl-sCnc 137mmol/L Normal 136 - 145 [facility] Neutrophils num Bld Auto 23.76Thou/uL Above high normal 2 - 7.5 [facility] Monocytes num Bld Auto 0.16Thou/uL Below low normal 0.2 - 1.5 [facility] Eosinophil num Bld Auto 0Thou/uL Normal 0 - 0.7 [facility] WBC num Bld Auto 24.9Thou/uL Above high normal 4 - 11 [facility] MCHC RBC Auto-mCnc 32.8g/dL Normal 30 - 36 [facility] Monocytes/leuk NFr Bld Auto 0.6% Normal [facility] Hct VFr Bld Auto 41.8% Normal 39 - 54 [facility] RBC num Bld Auto 4.27Mil/uL Below low normal 4. 5 - 6.2 [facility] RDW RBC Auto-Rto 13.3% Normal 11.5 - 14.5 [facility] PMV Bld Auto 9.4fL Normal 7.5 - 12.5 [facility] Eosinophil/leuk NFr Bld Auto 0% Normal CCT MCH RBC Qn Auto 32.1pg Above high normal 27 - 31 [facility] Basophils/leuk NFr Bld Auto 0.2% Normal [facility] Basophils num Bld Auto 0.05Thou/uL Normal 0 - 0.2 [facility] Platelet num Bld Auto 239Thou/uL Normal [id number] 150 - 450 [facility] Neutrophils/leuk NFr Bld Auto 95.6% Normal [id number] CCT MCV RBC Auto 98fL Normal 80 - 100 HH T Lymphocytes/leuk NFr Bld Auto 2.4% Normal [facility] Lymphocytes num Bld Auto 0.6Thou/uL Below low normal 1.5 - 4.5 [facility] Imm Granulocytes/leuk NFr Bld Auto 1.2% Normal [facility] Hgb Bld-mCnc 13.7g/dL Normal 13 - 17.7 [facility] T Imm Granulocytes num Bld Auto 0.31Thou/uL Above high normal 0 - 0.1 [facility] Troponin I SerPl HS-mCnc 7ng/L Normal 0 - 20 [facility] Service [facility] XXX-Imp Cepheid GeneXpert (RT-PCR) [facility] Normal [facility] FLUBV RNA Nph Ql DEMARCO+non-probe NEGATIVE Normal [facility] RSV RNA Nph Ql DEMARCO+non-probe NEGATIVE Normal [facility] FLUAV RNA Nph Ql DEMARCO+non-probe NEGATIVE Normal [facility] Troponin I SerPl HS-mCnc 7ng/L Normal 0 - 20 [facility] BNP BLD MCNC 71pg/mL Normal 0 - 100 [facility] MAGNESIUM SERPL MCNC 2.3mg/dL Normal 1.7 - 2.8 [facility] CREAT SERPL MCNC 1.8mg/dL Above high normal 0. 7 - 1.3 [facility] CALCIUM SERPL MCNC 10.1mg/dL Normal 8.4 - 10.2 [facility] SODIUM SERPL SCNC 136mmol/L Normal 135 - 145 [facility] ANION GAP SERPL SCNC 9mmol/L Normal 5 - 14 [facility] Glomerular filtration rate/1.73 sq M. predicted 37 Below low normal 60 - [facility] HCO3 SER SCNC 26mmol/L Normal 24 - 32 [facility] GLUCOSE SERPL MCNC 149mg/dL Normal 70 - 199 [facility] BUN SERPL MCNC 30mg/dL Above high normal 9 - 20 [facility] CHLORIDE SERPL SCNC 101mmol/L Normal 98 - 107 [facility] POTASSIUM SERPL SCNC 5mmol/L Normal 3.5 - 5.1 [facility] PLATELET NO. BLD AUTO 260K/uL Normal [id number] 150 - 450 [facility] RBC NO. BLD AUTO 4.48M/uL Below low normal [id number] 4.7 - 6 [facility] NUCLEATED RBC 0% Normal [id number] 0 - 1 [facility] LYMPHOCYTES NO. BLD AUTO 1.4K/uL Normal [id number] 1 - 3.2 [facility] EOSINOPHIL NO. BLD AUTO 0.2K/uL Normal [id number] 0 - 0.5 [facility] MCH RBC QN AUTO 33pg Normal [id number] 25 - 33 C [facility] MCHC RBC AUTO MCNC 33.6g/dL Normal [id number] 32 - 36 [facility] MONOCYTES NFR BLD AUTO 5.2% Normal [id number] 2 - 12 [facility] IMMATURE GRANULOCYTE, ABSOLUTE 0.17k/uL Above high normal [id number] - 0.1 [facility] LYMPHOCYTES NFR BLD AUTO 6.1% Below low normal [id number] 20 - 48 [facility] EOSINOPHIL NFR BLD AUTO 0.7% Normal [id number] 0 - 6 [facility] HGB BLD MCNC 14.8g/dL Normal [id number] 13.5 - 18 [facility] NEUTROPHILS NO. BLD AUTO 19.7K/uL Above high normal [id number] 1.8 - 7.8 [facility] WBC NO. BLD AUTO 22.7K/uL Above high normal [id number] 4 - 10.5 [facility] BASOPHILS NFR BLD AUTO 0.4% Normal [id number] 0 - 2 [facility] MONOCYTES NO. BLD AUTO 1.2K/uL Above high normal [id number] 0 - 0.8 [facility] MCV RBC AUTO 98.2fL Normal [id number] 78 - 100 [facility] NEUTROPHILS NFR BLD AUTO 86.9% Above high normal [id number] 44 - 74 [facility] IMMATURE GRANULOCYTE, PERCENT 0.7% Normal [id number] 0 - 1 [facility] BASOPHILS IN BLOOD BY AUTOMATED COUNT 0.1K/uL Normal [id number] 0 - 0.2 [facility] PMV BLD AUTO 9.2fL Normal [id number] 7.4 - 11.4 [facility] RDW RBC AUTO RTO 13.3% Normal [id number] 12.1 - 17.7 [facility] HCT VFR BLD AUTO 44% Normal 40 - 54 [facility] PT TIME PPP 17.7sec Above high normal 10.5 - 13.3 [facility] INR PPP 1.5 Above high normal 0.8 - 1.1 [facility] SPECIMEN SOURCE XXX NASOPHARYNGEAL Normal [facility] AST SERPL CCNC 20U/L Normal 5 - [facility] BCG MCNC 4.2g/dL Normal 3.5 - 5 [facility] ALP SERPL-CCNC 86U/L Normal 34 - 104 [facility] ALT SERPL CCNC 22U/L Normal 7 - 52 [facility] PROT SERPL MCNC 6.8g/dL Normal 6.4 - 8.5 [facility] BILIRUB SERPL MCNC 0.4mg/dL Normal 0.3 - 1 [facility] CALCIUM SERPL MCNC 9.5mg/dL Normal 8.4 - 10.2 [facility] ANION GAP SERPL SCNC 11mmol/L Normal 5 - 14 [facility] Glomerular filtration rate/1.73 sq M. predicted 42 Below low normal 60 - [facility] HCO3 SER SCNC 23mmol/L Below low normal 24 - 3 2 [facility] GLUCOSE SERPL MCNC 115mg/dL Normal 70 - 199 [facility] BUN SERPL MCNC 31mg/dL Above high normal 9 - 20 [facility] CHLORIDE SERPL SCNC 103mmol/L Normal 98 - 107 [facility] CREAT SERPL MCNC 1.6mg/dL Above high normal 0. 7 - 1.3 [facility] SODIUM SERPL SCNC 137mmol/L Normal 135 - 145 [facility] POTASSIUM SERPL SCNC 5.4mmol/L Above high normal 3.5 - 5.1 [facility] DIFFERENTIAL TYPE AUTOMATED Normal [facility] PLATELET NO. BLD AUTO 375K/uL Normal 150 - 450 [facility] RBC NO. BLD AUTO 4.42M/uL Below low normal 4.7 - 6 [facility] LYMPHOCYTES NO. BLD AUTO 2.5K/uL Normal 1 - 3.2 [facility] EOSINOPHIL NO. BLD AUTO 0.8K/uL Above high normal 0 - 0.5 [facility] MCH RBC QN AUTO 33.3pg Above high normal 25 - 33 [facility] MCHC RBC AUTO MCNC 33.5g/dL Normal 32 - 36 [facility] MONOCYTES NFR BLD AUTO 10.1% Normal 2 - 12 [facility] LYMPHOCYTES NFR BLD AUTO 26.1% Normal 20 - 48 [facility] EOSINOPHIL NFR BLD AUTO 8.1% Above high normal 0 - 6 [facility] HGB BLD MCNC 14.7g/dL Normal 13.5 - 18 [facility] NEUTROPHILS NO. BLD AUTO 5.1K/uL Normal 1.8 - 7.8 [facility] WBC NO. BLD AUTO 9.4K/uL Normal 4 - 10.5 [facility] BASOPHILS NFR BLD AUTO 0.9% Normal 0 - 2 [facility] MONOCYTES NO. BLD AUTO 1K/uL Above high normal 0 - 0.8 [facility] MCV RBC AUTO 99.6fL Normal 78 - 100 [facility] NEUTROPHILS NFR BLD AUTO 54.8% Normal 44 - 74 [facility] BASOPHILS IN BLOOD BY AUTOMATED COUNT 0.1K/uL Normal 0 - 0.2 [facility] PMV BLD AUTO 8fL Normal 7.4 - 11.4 [facility] RDW RBC AUTO RTO 13.9% Normal 12.1 - 17.7 [facility] HCT VFR BLD AUTO 44% Normal 40 - 54 [facility] MAGNESIUM SERPL MCNC 2.5mg/dL Normal 1.7 - 2.8 [facility] CREAT SERPL MCNC 1.2mg/dL Normal [id number] 0.7 - 1.3 [facility] CALCIUM SERPL MCNC 8.4mg/dL Normal [id number] 8.4 - 10.2 [facility] SODIUM SERPL SCNC 137mmol/L Normal [id number] 135 - 145 [facility] ANION GAP SERPL SCNC 8mmol/L Normal [id number] 5 - 14 [facility] Glomerular filtration rate/1.73 sq M. predicted 60 Below low normal [id number] 60 - [facility] HCO3 SER SCNC 22mmol/L Below low normal [id number] 24 - 3 2 [facility] GLUCOSE P FAST SERPL MCNC 171mg/dL Above high normal [id number] 70 - 99 [facility] BUN SERPL MCNC 34mg/dL Above high normal [id number] 9 - 20 [facility] CHLORIDE SERPL SCNC 107mmol/L Normal [id number] 98 - 107 [facility] POTASSIUM SERPL SCNC 4.6mmol/L Normal [id number] 3.5 - 5.1 [facility] PHOSPHATE SERPL MCNC 1.7mg/dL Below low normal [id number] 2.5 - 4.5 [facility] HGB BLD MCNC 13.3g/dL Below low normal [id number] 13.5 - 18 [facility] PLATELET NO. BLD AUTO 247K/uL Normal [id number] 150 - 450 [facility] WBC NO. BLD AUTO 17.4K/uL Above high normal [id number] 4 - 10.5 [facility] RBC NO. BLD AUTO 4.04M/uL Below low normal [id number] 4.7 - 6 [facility] MCH RBC QN AUTO 32.9pg Normal [id number] 25 - 33 [facility] MCHC RBC AUTO MCNC 33.2g/dL Normal [id number] 32 - 36 [facility] MCV RBC AUTO 99.3fL Normal [id number] 78 - [address] [facility] PMV BLD [facility]O 9.4fL Normal [id number] 7.4 - 11.4 [facility] RDW RBC AUTO RTO 13.2% Normal [id number] 12.1 - 17.7 [facility] HCT VFR BLD AUTO 40.1% Normal [id number] 40 - 54 [facility] PHOSPHATE SERPL MCNC 2.5mg/dL Normal [id number] 2.5 - 4.5 [facility] MAGNESIUM SERPL MCNC 2.2mg/dL Normal [id number] 1.7 - 2.8 [facility] CREAT SERPL MCNC 1.3mg/dL Normal [id number] 0.7 - 1.3 [facility] CALCIUM SERPL MCNC 8.2mg/dL Below low normal [id number] 5 8.4 - 10.2 [facility] SODIUM SERPL SCNC 137mmol/L Normal [id number] 135 - 145 [facility] ANION GAP SERPL SCNC 10mmol/L Normal [id number] 5 - 14 [facility] Glomerular filtration rate/1.73 sq M. predicted 55 Below low normal [id number] 60 - [facility] HCO3 SER SCNC 22mmol/L Below low normal [id number] 24 - 3 2 [facility] GLUCOSE P FAST SERPL MCNC 155mg/dL Above high normal [id number] 70 - 99 [facility] BUN SERPL MCNC 31mg/dL Above high normal [id number] 9 - 20 [facility] CHLORIDE SERPL SCNC 105mmol/L Normal [id number] 98 - 107 [facility] POTASSIUM SERPL SCNC 4.1mmol/L Normal [id number] 3.5 - 5.1 [facility] HGB BLD MCNC 13.7g/dL Normal [id number] 13.5 - 18 [facility] PL[facility] NO. BLD AUTO 261K/uL Normal [id number] 150 - 450 [facility] WBC NO. BLD AUTO 22.2K/uL Above high normal [id number] 4 - 10.5 [facility] RBC NO. BLD AUTO 4.18M/uL Below low normal [id number] 4.7 - 6 [facility] MCH RBC QN AUTO 32.8pg Normal [id number] 25 - 33 [facility] MCHC RBC AUTO MCNC 32.5g/dL Normal [id number] 32 - 36 [facility] MCV RBC AUTO 101fL Above high normal [id number] 78 - 1 00 [facility] PMV BLD AUTO 9.5fL Normal [id number] 7.4 - 11.4 [facility] RDW RBC AUTO RTO 13.2% Normal 12.1 - 17.7 [facility] HCT VFR BLD AUTO 42.2% Normal [id number] 40 - 54 [facility] Service [facility] XXX-Imp Cepheid GeneXpert (RT-PCR) [facility] Normal [id number] [facility] FLUBV RNA Nph Ql DEMARCO+non-probe NEGATIVE Normal [id number] [facility] RSV RNA Nph Ql DEMARCO+non-probe NEGATIVE Normal [id number] [facility] FLUAV RNA Nph Ql DEMARCO+non-probe NEGATIVE Normal [id number] [facility] Clarity Ur Refract.auto CLEAR Normal [id number] [facility] Prot Ur Ql Strip.auto NEGATIVE Normal [id number] - [facility] Glucose Ur Ql Strip.auto NEGATIVE Normal [id number] - [facility] Nitrite Ur Ql Strip.auto NEGATIVE Normal [id number] - [facility] Hgb Ur Ql Strip.auto NEGATIVE Normal [id number] - [facility] Ketones Ur Ql Strip.auto NEGATIVE Normal [id number] - [facility] Leukocyte esterase Ur Ql Strip.auto NEGATIVE Normal [id number] - [facility] Sp Gr Ur Strip.auto 1.015 Normal [id number] 1.005 - 1.03 [facility] pH Ur Strip.auto 5.5 Normal [id number] 4.5 - 8 [facility] SPECIMEN SOURCE XXX URINE, RANDOM Normal [id number] [facility] HGB BLD MCNC 13.3g/dL Below low normal [id number] 13.5 - 18 [facility] PLATELET NO. BLD AUTO 252K/uL Normal [id number] 150 - 450 [facility] WBC NO. BLD AUTO 22.4K/uL Above high normal [id number] 4 - 10.5 [facility] RBC NO. BLD AUTO 4.04M/uL Below low normal [id number] 4.7 - 6 [facility] MCH RBC QN AUTO 32.9pg Normal [id number] 25 - 33 [facility] RBC AUTO MCNC 33.2g/dL Normal 32 - 36 [facility] MCV RBC AUTO 99.3fL Normal 78 - 100 [facility] PMV BLD AUTO 9.6fL Normal [id number] 7.4 - 11.4 [facility] RDW RBC AUTO RTO 13% Normal 12.1 - 17.7 [facility] HCT VFR BLD AUTO 40.1% Normal 40 - 54 [facility] MAGNESIUM SERPL MCNC 2.2mg/dL Normal [id number] 1.7 - 2.8 [facility] PHOSPHATE SERPL MCNC 2.6mg/dL Normal [id number] 2.5 - 4.5 [facility] CREAT SERPL MCNC 1.5mg/dL Above high normal [id number] 0. 7 - 1.3 [facility] CALCIUM SERPL MCNC 8.5mg/dL Normal [id number] 8.4 - 10.2 [facility] SODIUM SERPL SCNC 136mmol/L Normal 135 - 145 [facility] ANION GAP SERPL SCNC 6mmol/L Normal [id number] 5 - 14 [facility] Glomerular filtration rate/1.73 sq M. predicted 46 Below low normal [id number] 60 - [facility] HCO3 SER SCNC 25mmol/L Normal 24 - 32 [facility] GLUCOSE P FAST SERPL MCNC 158mg/dL Above high normal [id number] 70 - 99 [facility] BUN SERPL MCNC 36mg/dL Above high normal [id number] 9 - 20 [facility] CHLORIDE SERPL SCNC 105mmol/L Normal [id number] 98 - 107 [facility] POTASSIUM SERPL SCNC 4.8mmol/L Normal [id number] 3.5 - 5.1 [facility] LACTATE SERPL SCNC 1.4mmol/L Normal [id number] 0.5 - 2 [facility] LACTATE SERPL SCNC 3.4mmol/L Above high normal [id number] 0.5 - 2 [facility] DIGOXIN SERPL MCNC 1.1ng/mL Normal [id number] 0.8 - 2 [facility] LACTATE SERPL SCNC 2.8mmol/L Above high normal [id number] 0.5 - 2 [facility] LACTATE SERPL SCNC 2mmol/L Normal [id number] 0.5 - 2 [facility] PHOSPHATE SERPL MCNC 1.4mg/dL Below low normal [id number] 2.5 - 4.5 [facility] PROT SERPL MCNC 7.4g/dL Normal [id number] 6.4 - 8.5 [facility] BILIRUB SERPL MCNC 0.9mg/dL Normal [id number] 0.3 - 1 [facility] ALBUMIN/GLOB SERPL MRTO 1.2 Normal [id number] [facility] AST SERPL CCNC 18U/L Normal [id number] 5 - 40 [facility] ALBUMIN SERPL BCG MCNC 4.1g/dL Normal [id number] 3.5 - 5 [facility] ALP SERPL-CCNC 80U/L Normal [id number] 34 - 104 [facility] ALT SERPL CCNC 20U/L Normal [id number] 7 - 52 [facility] BILIRUB DIRECT SERPL MCNC 0.2mg/dL Normal [id number] 0 - 0.2 [facility] MAGNESIUM SERPL MCNC 2.1mg/dL Normal [id number] 1.7 - 2.8 [facility] D DIMER DDU PPP EIA MCNC 584ng/mLDDU Above high normal [id number] - 231 [facility] SPECIMEN SOURCE XXX NASOPHARYNGEAL Normal [id number] [facility] Troponin I SerPl HS-mCnc 8ng/L Normal [id number] 0 - 20 [facility] LACTATE SERPL SCNC 3mmol/L Above high normal [id number] 0.5 - 2 [facility] PH BLDA 7.5 Above high normal [id number] 7.35 - 7.45 [facility] PCO2 BLDA 34mmHg Below low normal [id number] 35 - 45 [facility] HCO3 BLDA SCNC 27.6mmol/L Above high normal [id number] 22 - 26 [facility] BASE EXCESS BLDA SCNC 3.7mmol/L Above high normal [id number] 0 - 2 [facility] SAO2% BLDA 94.6% Below low normal [id number] 95 - 98 [facility] PO2 BLDA 61mmHg Below low normal [id number] 80 - 105 [facility] SPECIMEN TYPE ARTERIAL Normal [id number] [facility] Troponin I SerPl HS-mCnc 6ng/L Normal [id number] 0 - 20 [facility] CREAT SERPL MCNC 1.7mg/dL Above high normal [id number] 0. 7 - 1.3 [facility] CALCIUM SERPL MCNC 10.2mg/dL Normal [id number] 8.4 - 10.2 [facility] SODIUM SERPL SCNC 135mmol/L Normal [id number] 135 - 145 [facility] ANION GAP SERPL SCNC 10mmol/L Normal [id number] 5 - 14 [facility] Glomerular filtration rate/1.73 sq M. predicted 40 Below low normal [id number] 60 - [facility] HCO3 SER SCNC 27mmol/L Normal [id number] 24 - 32 [facility] GLUCOSE SERPL MCNC 143mg/dL Normal [id number] 70 - 199 [facility] BUN SERPL MCNC 38mg/dL Above high normal [id number] 9 - 20 [facility] CHLORIDE SERPL SCNC 98mmol/L Normal [id number] 98 - 107 [facility] POTASSIUM SERPL SCNC 4.8mmol/L Normal [id number] 3.5 - 5.1 [facility] PT TIME PPP 18.5sec Above high normal [id number] 10.5 - 13.3 [facility] INR PPP 1.5 Above high normal [id number] 0.8 - 1.1 [facility] PLATELET NO. BLD AUTO 297K/uL Normal [id number] 150 - 450 [facility] RBC NO. BLD AUTO 4.59M/uL Below low normal [id number] 4.7 - 6 [facility] NUCLEATED RBC 0% Normal [id number] 0 - 1 [facility] LYMPHOCYTES NO. BLD AUTO 0.7K/uL Below low normal [id number] 1 - 3.2 [facility] EOSINOPHIL NO. BLD AUTO 0.2K/uL Normal [id number] 0 - 0.5 [facility] MCH RBC QN AUTO 33.6pg Above high normal [id number] 25 - 33 [facility] MCHC RBC AUTO MCNC 33.6g/dL Normal [id number] 32 - 36 [facility] MONOCYTES NFR BLD AUTO 5.5% Normal [id number] 2 - 12 [facility] IMMATURE GRANULOCYTE, ABSOLUTE 0.22k/uL Above high normal [id number] - 0.1 [facility] LYMPHOCYTES NFR BLD AUTO 3% Below low normal [id number] 20 - 48 [facility] EOSINOPHIL NFR BLD AUTO 1% Normal [id number] 0 - 6 [facility] HGB BLD MCNC 15.4g/dL Normal [id number] 13.5 - 18 [facility] NEUTROPHILS NO. BLD AUTO 20.7K/uL Above high normal [id number] 1.8 - 7.8 [facility] WBC NO. BLD AUTO 23.3K/uL Above high normal [id number] 4 - 10.5 [facility] BASOPHILS NFR BLD AUTO 0.6% Normal [id number] 0 - 2 [facility] MONOCYTES NO. BLD AUTO 1.3K/uL Above high normal [id number] 0 - 0.8 [facility] MCV RBC AUTO 99.8fL Normal [id number] 78 - 100 [facility] NEUTROPHILS NFR BLD AUTO 89% Above high normal [id number] 44 - 74 [facility] IMMATURE GRANULOCYTE, PERCENT 0.9% Normal [id number] 0 - 1 [facility] BASOPHILS IN BLOOD BY AUTOMATED COUNT 0.1K/uL Normal [id number] 0 - 0.2 [facility] PMV BLD AUTO 9.4fL Normal [id number] 7.4 - 11.4 [facility] RDW RBC AUTO RTO 12.8% Normal [id number] 12.1 - 17.7 [facility] HCT VFR BLD AUTO 45.8% Normal [id number] 40 - 54 [facility] MAGNESIUM SERPL MCNC 2.3mg/dL Normal [id number] 1.7 - 2.8 [facility] CREAT SERPL MCNC 1.5mg/dL Above high normal [id number] 0. 7 - 1.3 [facility] CALCIUM SERPL MCNC 9.6mg/dL Normal [id number] 8.4 - 10.2 [facility] SODIUM SERPL SCNC 139mmol/L Normal [id number] 135 - 145 [facility] ANION GAP SERPL SCNC 15mmol/L Above high normal [id number] 5 - 14 [facility] Glomerular filtration rate/1.73 sq M. predicted 46 Below low normal [id number] 60 - [facility] HCO3 SER SCNC 18mmol/L Below low normal [id number] 24 - 3 2 [facility] GLUCOSE SERPL MCNC 167mg/dL Normal [id number] 70 - 199 [facility] BUN SERPL MCNC 36mg/dL Above high normal [id number] 9 - 20 [facility] CHLORIDE SERPL SCNC 106mmol/L Normal [id number] 98 - 107 [facility] POTASSIUM SERPL SCNC 4.8mmol/L Normal [id number] 3.5 - 5.1 [facility] PLATELET NO. BLD AUTO 263K/uL Normal [id number] 150 - 450 [facility] RBC NO. BLD AUTO 4.41M/uL Below low normal [id number] 4.7 - 6 [facility] NUCLEATED RBC 0% Normal [id number] 0 - 1 [facility] LYMPHOCYTES NO. BLD AUTO 1.1K/uL Normal [id number] 1 - 3.2 [facility] EOSINOPHIL NO. BLD AUTO 0K/uL Normal [id number] 0 - 0.5 [facility] MCH RBC QN AUTO 32.9pg Normal [id number] 25 - 33 [facility] MCHC RBC AUTO MCNC 32.7g/dL Normal [id number] 32 - 36 [facility] MONOCYTES NFR BLD AUTO 0.5% Below low normal [id number] 2 - 12 [facility] IMMATURE GRANULOCYTE, ABSOLUTE 0.06k/uL Normal [id number] - 0.1 [facility] LYMPHOCYTES NFR BLD AUTO 11.6% Below low normal [id number] 20 - 48 [facility] EOSINOPHIL NFR BLD AUTO 0.1% Normal [id number] 0 - 6 [facility] HGB BLD MCNC 14.5g/dL Normal [id number] 13.5 - 18 [facility] NEUTROPHILS NO. BLD AUTO 8.1K/uL Above high normal [id number] 1.8 - 7.8 [facility] WBC NO. BLD AUTO 9.3K/uL Normal [id number] 4 - 10.5 [facility] BASOPHILS NFR BLD AUTO 0.2% Normal [id number] 0 - 2 [facility] MONOCYTES NO. BLD AUTO 0.1K/uL Normal [id number] 0 - 0.8 [facility] MCV RBC AUTO 100.7fL Above high normal [id number] 78 - 1 00 [facility] NEUTROPHILS NFR BLD AUTO 87% Above high normal [id number] 44 - 74 [facility] IMMATURE GRANULOCYTE, PERCENT 0.6% Normal [id number] 0 - 1 [facility] BASOPHILS IN BLOOD BY AUTOMATED COUNT 0K/uL Normal [id number] 0 - 0.2 [facility] PMV BLD AUTO 9.5fL Normal [id number] 7.4 - 11.4 [facility] RDW RBC AUTO RTO 13.6% Normal [id number] 12.1 - 17.7 [facility] HCT VFR BLD AUTO 44.4% Normal [id number] 40 - 54 [facility] Procalcitonin SerPl IA-mCnc 0.07ng/mL Above high normal [id number] - 0.05 [facility] Service [facility] XXX-Imp Cepheid GeneXpert (RT-PCR) [facility] Normal [id number] [facility] FLUBV RNA Nph Ql DEMARCO+non-probe NEGATIVE Normal [id number] [facility] RSV RNA Nph Ql DEMARCO+non-probe NEGATIVE Normal [id number] [facility] FLUAV RNA Nph Ql DEMARCO+non-probe NEGATIVE Normal [id number] [facility] PLATELET NO. BLD AUTO 290K/uL Normal [id number] 150 - 450 [facility] RBC NO. BLD AUTO 4.42M/uL Below low normal [id number] 4.7 - 6 [facility] NUCLEATED RBC 0% Normal [id number] 0 - 1 [facility] LYMPHOCYTES NO. BLD AUTO 2.1K/uL Normal [id number] 1 - 3.2 [facility] EOSINOPHIL NO. BLD AUTO 1.3K/uL Above high normal [id number] 0 - 0.5 [facility] MCH RBC QN AUTO 33.7pg Above high normal [id number] 25 - 33 [facility] MCHC RBC AUTO MCNC 34.2g/dL Normal [id number] 32 - 36 [facility] MONOCYTES NFR BLD AUTO 6.1% Normal [id number] 2 - 12 [facility] IMMATURE GRANULOCYTE, ABSOLUTE 0.05k/uL Normal [id number] - 0.1 [facility] LYMPHOCYTES NFR BLD AUTO 17.6% Below low normal [id number] 20 - 48 [facility] EOSINOPHIL NFR BLD AUTO 10.9% Above high normal [id number] 0 - 6 [facility] HGB BLD MCNC 14.9g/dL Normal [id number] 13.5 - 18 [facility] NEUTROPHILS NO. BLD AUTO 7.5K/uL Normal [id number] 1.8 - 7.8 [facility] WBC NO. BLD AUTO 11.7K/uL Above high normal [id number] 4 - 10.5 [facility] BASOPHILS NFR BLD AUTO 0.9% Normal [id number] 0 - 2 [facility] MONOCYTES NO. BLD AUTO 0.7K/uL Normal [id number] 0 - 0.8 [facility] MCV RBC AUTO 98.6fL Normal [id number] 78 - 100 [facility] NEUTROPHILS NFR BLD AUTO 64.1% Normal [id number] 44 - 74 [facility] IMMATURE GRANULOCYTE, PERCENT 0.4% Normal [id number] 0 - 1 [facility] BASOPHILS IN BLOOD BY AUTOMATED COUNT 0.1K/uL Normal [id number] 0 - 0.2 [facility] PMV BLD AUTO 9.3fL Normal [id number] 7.4 - 11.4 [facility] RDW RBC AUTO RTO 13.8% Normal [id number] 12.1 - 17.7 [facility] HCT VFR BLD AUTO 43.6% Normal [id number] 40 - 54 [facility] Troponin I SerPl HS-mCnc 6ng/L Normal [id number] 0 - 20 [facility] BNP BLD MCNC 65pg/mL Normal [id number] 0 - 100 [facility] CREAT SERPL MCNC 1.4mg/dL Above high normal [id number] 0. 7 - 1.3 [facility] CALCIUM SERPL MCNC 10.3mg/dL Above high normal [id number] 8.4 - 10.2 [facility] SODIUM SERPL SCNC 138mmol/L Normal [id number] 135 - 145 [facility] ANION GAP SERPL SCNC 7mmol/L Normal [id number] 5 - 14 [facility] Glomerular filtration rate/1.73 sq M. predicted 50 Below low normal [id number] 60 - [facility] HCO3 SER SCNC 25mmol/L Normal 24 - 32 [facility] GLUCOSE SERPL MCNC 116mg/dL Normal 70 - 199 [facility] BUN SERPL MCNC 32mg/dL Above high normal 9 - 20 [facility] CHLORIDE SERPL SCNC 106mmol/L Normal 98 - 107 [facility] POTASSIUM SERPL SCNC 5.1mmol/L Normal 3.5 - 5.1 [facility] PT TIME PPP 14.9sec Above high normal 10.5 - 13.3 [facility] INR PPP 1.2 Above high normal 0.8 - 1.1 [facility] SPECIMEN SOURCE XXX NASOPHARYNGEAL Normal [facility] HGB BLD MCNC 15.5g/dL Normal 13.5 - 18 [facility] PLATELET NO. BLD AUTO 269K/uL Normal 150 - 450 [facility] WBC NO. BLD AUTO 9.1K/uL Normal 4 - 10.5 [facility] RBC NO. BLD AUTO 4.46M/uL Below low normal 4. 7 - 6 [facility] MCH RBC QN AUTO 34.7pg Above high normal 25 - 33 [facility] MCHC RBC AUTO MCNC 34.7g/dL Normal 32 - 36 [facility] MCV RBC AUTO 99.9fL Normal 78 - 100 [facility] PMV BLD AUTO 8.6fL Normal 7.4 - 11.4 [facility] RDW RBC AUTO RTO 13.8% Normal 12.1 - 17.7 [facility] HCT VFR BLD AUTO 44.6% Normal 40 - 54 [facility] LDLc SerPl Calc-mCnc 86mg/dL Normal 50 - 130 [facility] TRIGL SERPL-MCNC 194mg/dL Above high normal [id number] - 150 [facility] CHOLEST SERPL-MCNC 161mg/dL Normal 0 - 200 [facility] HDLC SERPL-MCNC 36mg/dL Normal - 70 [facility] CREAT SERPL MCNC 1.5mg/dL Above high normal 0. 7 - 1.3 [facility] CALCIUM SERPL MCNC 9.6mg/dL Normal 8.4 - 10.2 [facility] SODIUM SERPL SCNC 139mmol/L Normal 135 - 145 [facility] ANION GAP SERPL SCNC 9mmol/L Normal 5 - 14 [facility] Glomerular filtration rate/1.73 sq M. predicted 46 Below low normal 60 - [facility] HCO3 SER SCNC 27mmol/L Normal 24 - 32 [facility] GLUCOSE P FAST SERPL MCNC 95mg/dL Normal - [facility] BUN SERPL MCNC 35mg/dL Above high normal 9 - 20 [facility] CHLORIDE SERPL SCNC 103mmol/L Normal 98 - 107 [facility] POTASSIUM SERPL SCNC 4.3mmol/L Normal 3.5 - 5.1 [facility] CREAT SERPL MCNC 1.7mg/dL Above high normal 0. 7 - 1.3 [facility] CALCIUM SERPL MCNC 10.2mg/dL Normal 8.4 - 10.2 [facility] SODIUM SERPL SCNC 140mmol/L Normal 135 - 145 [facility] ANION GAP SERPL SCNC 9mmol/L Normal 5 - 14 [facility] Glomerular filtration rate/1.73 sq M. predicted 40 Below low normal 60 - [facility] HCO3 SER SCNC 28mmol/L Normal 24 - 32 [facility] GLUCOSE P FAST SERPL MCNC 114mg/dL Above high normal - 99 [facility] BUN SERPL MCNC 26mg/dL Above high normal 9 - 20 [facility] CHLORIDE SERPL SCNC 103mmol/L Normal 98 - 107 [facility] POTASSIUM SERPL SCNC 4.5mmol/L Normal [id number] 3.5 - 5.1 [facility] BNP BLD MCNC 81pg/mL Normal 0 - 100 [facility] CREAT SERPL MCNC 1.6mg/dL Above high normal 0. 7 - 1.3 [facility] CALCIUM SERPL MCNC 10mg/dL Normal 8.4 - 10.2 [facility] SODIUM SERPL SCNC 141mmol/L Normal 135 - 145 [facility] ANION GAP SERPL SCNC 13mmol/L Normal 5 - 14 [facility] Glomerular filtration rate/1.73 sq M. predicted 42 Below low normal 60 - [facility] HCO3 SER SCNC 28mmol/L Normal 24 - 32 [facility] GLUCOSE P FAST SERPL MCNC 108mg/dL Above high normal 70 - 99 [facility] BUN SERPL MCNC 23mg/dL Above high normal 9 - 20 [facility] CHLORIDE SERPL SCNC 100mmol/L Normal 98 - 107 [facility] POTASSIUM SERPL SCNC 4.2mmol/L Normal 3.5 - 5.1 [facility] MAGNESIUM SERPL MCNC 2.5mg/dL Normal 1.7 - 2.8 [facility] History of Medication Use Medication Directions Dispensed Refills Start Date End Date Status lidocaine (XYLOCAINE) 4 % external solution Apply topically 1 (one) time each day. 5 active mupirocin (BACTROBAN) 2 % ointment Apply topically 1 (one) time each day. 5 active sodium chloride 0.9% (NS) infusion 75 mL/hr, Intravenous, Continuous, Starting on 12/26/23 at 0745, For 24 hours 4 12/27/19 24 aborted Glucosamine-Chondroit- Vit C-Mn (GLUCOSAMINE CHONDR 1500 COMPLX PO) Take by mouth. active vitamin C (ASCORBIC ACID) 250 MG tablet Take 2 tablets (500 mg total) by mouth daily. active predniSONE (DELTASONE) tablet 20 mg Take 2 tablets (40 mg total) by mouth daily for 5 days. 4 05/29/20 24 active aspirin 81 mg EC tablet Take 81 mg by mouth daily. active furosemide (LASIX) 20 mg tablet Take 1 tablet (20 mg total) by mouth daily. 2 active sodium chloride 0.9% bolus (NS) 1,000 mL 1,000 mL, Intravenous, at 1,000 mL/hr, Once, On Thu12/25/23 at 1200, For 1 dose 4 12/25/19 completed ascorbic acid (VITAMIN C) 250 mg tablet Take 500 mg by mouth daily. active hydrOXYzine pamoate (VistariL) 25 mg capsule Take 1 capsule (25 mg total) by mouth 3 (three) times a day if needed for itching for up to 10 days. 4 05/15/20 active Trelegy Ellipta 100-62.5-25 MCG/ACT AEPB 1 puff by Inhaled route daily. 4 active methylPREDNISolone sodium succinate (SOLU-Medrol) injection 125 mg 125 mg, Intravenous, Once, On Thu03/11/24 at 2230, For 1 doseAdminister over 2-3 minutes 4 03/12/20 completed Xarelto 20 MG tablet 11/30 4 active spironolactone (ALDACTONE) tablet 50 mg Take 1 tablet (50 mg total) by mouth daily. 4 active timolol (TIMOPTIC) 0.5 % ophthalmic solution MIX WITH MUPIROCIN OINTMENT AND SILVADENE CREAM AND APPLY MIXTURE TWICE DAILY TO LEG WOUNDS 4 active albuterol HFA (PROAIR HFA ; PROVENTIL HFA ; VENTOLIN HFA) 90 mcg/actuation inhaler Inhale 2 puffs into the lungs 4 (four) times a day. 1 active rivaroxaban (XARELTO) 20 mg tablet Take 1 tablet (20 mg total) by mouth every evening. 1 active ondansetron (ZOFRAN) injection 4 mg 4 mg, Intravenous, Every 6 hours PRN, nausea, vomiting, Starting on Thu12/25/23 at 1248IV push over 2 to 5 minutes. 4 active clobetasol (TEMOVATE) 0.05 % ointment APPLY TO RASH TWICE DAILY FOR 10 DAYS THEN HOLD ONE WEEK. MAY REPEAT NEEDED 4 active ceFEPime (MAXIPIME) injection 2 g 2 g, Intravenous, Every 12 hours, First dose on Thu12/25/23 at 1300If ordered IV then reconstitute with 10 mL sterile water or normal saline and administer IV push over 3 minutes.What is your current facility? [facility] Location 4 active spironolactone (ALDACTONE) tablet 25 mg Take 1 tablet (25 mg total) by mouth daily. 3 06/02/19 24 active metoPROLOL TARTRATE (LOPRESSOR) 25 MG tablet Take 1 tablet (25 mg total) by mouth 2 times a day. 4 04/14/20 24 active predniSONE (DELTASONE) tablet 20 mg Take 2.5 tablets (50 mg total) by mouth daily for 2 days, THEN 2 tablets (40 mg total) daily for 3 days, THEN 1.5 tablets (30 mg total) daily for 3 days, THEN 1 tablet (20 mg total) daily for 3 days, THEN 0.5 tablets (10 mg total) daily for 3 days. 4 01/13/20 24 active acetaminophen (TYLENOL) 325 MG tablet Take 2 tablets (650 mg total) by mouth 4 times daily (every 6 hours) as needed for moderate pain or headaches. 4 04/14/20 24 active digoxin (LANOXIN) 125 MCG tablet Take 2 tablets today (Thursday) and tomorrow (Thursday) Then take 1 tablet daily 3 08/18/19 24 aborted bumetanide (BUMEX) 2 MG tablet Take 1 tablet (2 mg total) by mouth daily. 4 12/28/19 24 active Fluticasone-Umeclidin- Vilant 100-62.5-25 MCG/ACT AEPB 1 Inhalation 1 Inhalation, Inhaled, Daily, First dose on Thu12/28/23 at 0800Patient Supplied Medication_Remove under OverrideDrug Name: Eliasmarvin Ellipta 100-62.5-25 MCG/ACT AEPBForm: Inhaler 4 active silver sulfADIAZINE (SILVADENE) 1 % cream Topical, Daily, First dose on Thu12/26/23 at 1230Apply to bilateral legs with daily dressing changes. 4 active albuterol 108 (90 Base) MCG/ACT inhaler Inhale 2 puffs into the lungs 4 (four) times a day. 1 active spironolactone (ALDACTONE) tablet 50 mg 50 mg, Oral, Daily, First dose on Matilda 10/22/23 at 0900Reproductive/B reast Feeding Risk: Use appropriate precautions for handling and disposal. 4 active melatonin 3 MG tablet 3 mg 3 mg, Oral, Every Night at Bedtime, First dose on Thu10/21/23 at 2200 4 10/21/19 active Trelegy Ellipta 200-62.5-25 MCG/INH AEPB Take 1 puff by mouth daily. 1 active timolol (TIMOPTIC) 0.5 % ophthalmic solution MIX WITH MUPIROCIN OINTMENT AND SILVADENE CREAM AND APPLY MIXTURE TWICE DAILY TO LEG WOUNDS 4 active metoPROLOL TARTRATE (LOPRESSOR) 50 MG tablet Take 1 tablet (50 mg total) by mouth 2 times a day. 4 active Chlorhexidine Gluconate 4 % SOLN 1 application. 1 application., Topical, Daily, First dose on 12/26/23 at 1300Apply to bilateral legs as part of daily dressing changes. 4 active predniSONE (DELTASONE) 20 MG tablet Take by mouth. 4 01/13/20 active digoxin (LANOXIN) 125 mcg (0.125 mg) tablet Take 1 tablet (125 mcg total) by mouth daily. 4 active magnesium oxide (MAG-OX) 400 MG tablet Take 1 tablet (400 mg total) by mouth daily. active cefdinir (OMNICEF) 300 MG capsule Take 1 capsule (300 mg total) by mouth 2 (two) times a day for 6 days. 4 10/29/19 24 active fluticasone-umeclidini um-vilanterol (Trelegy Ellipta) 200-62.5-25 mcg inhaler Take 1 puff by mouth daily. 1 active Melatonin 5 MG CAPS Take 5 mg by mouth every night at bedtime. active metoprolol tartrate (LOPRESSOR) 50 mg tablet TAKE 1 TABLET BY MOUTH TWICE DAILY 2 active zinc sulfate (ZINCATE) 220 (50 Zn) MG capsule Take 1 capsule (220 mg total) by mouth daily. active acetaminophen (TYLENOL) tablet 650 mg 650 mg, Oral, Every 6 hours PRN, moderate pain (4-6), mild pain (1-3), Starting on Thu12/25/23 at 1257 4 active azithromycin (ZITHROMAX) 500 mg in sodium chloride (NS) 0.9 % 250 mL IVPB-V2B 500 mg, Intravenous, Administer over 60 Minutes, Once, On Thu10/21/23 at 1415, For 1 dose 4 10/21/19 24 completed Problems Problem Status Onset Date Problem Type Date of Resolution Source Left ventricular hypertrophy active 2016-09-05 ProblemAct [facility] Hypertension active ProblemAct [facility] DVT of lower extremity, bilateral active 2021-01-04 ProblemAct [facility] Acute bilateral deep vein thrombosis (DVT) of femoral veins active 2021-01-04 ProblemAct [facility] Hypertension active 2022-06-20 ProblemAct [facility] SOB (shortness of breath) [facility] exacerbation active 2024-03-12 ProblemAct [facility] Acute hypoxic respiratory failure active 2024-03-12 ProblemAct [facility] COPD with acute exacerbation active 2023-10-21 ProblemAct [facility] History of cardiac catheterization active ProblemAct [facility] Community acquired pneumonia of left lower lobe of lung active 2023-10-21 ProblemAct [facility] Abnormal ECG active ProblemAct [facility] Sepsis active 2023-12-25 ProblemAct [facility] Persistent atrial fibrillation active 2023-03-16 ProblemAct [facility] Right bundle branch block active ProblemAct [facility] Bilateral leg edema active 2022-06-20 ProblemAct [facility] Lymphedema active 2024-06-21 ProblemAct [facility] Sepsis active 2024-03-12 ProblemAct [facility] Bilateral leg edema active ProblemAct [facility] 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 active 2024-06-07 ProblemAct [facility] 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 (CMS/HCC) active EncounterDiagnosisAct [facility] Paroxysmal atrial fibrillation active 2021-02-11 ProblemAct [facility] Abnormal ECG active 2022-06-20 ProblemAct [facility] 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 active 2018-02-08 ProblemAct [facility] Open wound of left lower leg active 2024-04-06 ProblemAct [facility] Right bundle branch block active 2022-06-20 ProblemAct [facility] Lactic acidosis active 2024-03-12 ProblemAct [facility] Cellulitis active 2024-03-12 ProblemAct [facility] Immunizations Vaccine Date Source Lot Number Status Moderna SARS-CoV-2 COVID-19, mRNA, LNP-S, preservative free 07/09/2020 [facility] [id number] completed Moderna SARS-CoV-2 COVID-19, mRNA, LNP-S, preservative free 03/28/2021 [facility] completed Moderna SARS-CoV-2 COVID-19, mRNA, LNP-S, preservative free 08/06/2020 [facility] [id number] completed
--- OUTSIDE RECORDS SUMMARY | 2024-06-29 15:46 | XMS_ITS | Encounter Summary ---
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 (CMS/HCC) (Primary Dx); 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 (CMS/HCC) Social History Tobacco Use Types Packs/Day Years [...] Sign Reading Time Taken Comments Blood Pressure 125/70 06/07/2024 12:45 PM EST Pulse 79 06/07/2024 12:45 PM EST Temperature 36.6 ??C (97.8 ??F) 06/07/2024 12:[address] Respiratory Rate - - Oxygen Saturation - - Inhaled Oxygen Concentration - - Weight - - Height - - Body Mass Index - - documented in this encounter Progress Notes * Luca Rivas RN - 06/07/2024 12:30 PM EST PHYSICIAN ORDERS Go to ER if present with fever, shaking, chills, increased redness, or excess drainage. If you have any questions or concerns, please contact the wound center at Dept: [phone] Edema Control: Compression/Edema control: Medium Compression-Spandagrip (10-20 mmHg)Apply first thing in the morning, may remove at bedtime, unless otherwise directed. Avoid prolonged standing in one place for extended periods of time. Elevate leg(s) above level of heart when seated. Hand Hygiene: (W)codi hands before and after wound care. Call Wound Center at Dept: [phone] you have signs and symptoms of infection such as fever, chills, unusual or increased drainage, increasing odor, or unusual redness. WOUND #1 left lower leg Wound Cleansing & Dressings: Adaptic alginate, abd, kerlix, double Tubi G Every other day WOUND #2 right lower leg Wound Cleansing & Dressings: Adaptic alginate, abd, kerlix, double Tubi G Every other day Diet: Increase protein intake Misc/Additional orders: Misc/Additional orders: Smoking cessation was encouraged. Chantal Jackson RN Wound Care Supplies (Order ID: [id number]) Order Date: 04/06/2024 Diagnosis: Venous (peripheral) insufficiency (I87.2) Quantity: 1 Physician orders applied at clinic The doax-fl-bhgz evaluation was completed by: Sukhjinder Trotter MD [...] evaluation was performed on: 04/06/2024 * Blossom Bradley NP - 06/07/2024 12:30 PM EST Images from the original note were not included. Office Visit Visit Date: 06/07/2024 Patient Name: Jose Gonzáles Date of : 1940 PCP: Alton Lovelace MD HPI: Jose Gonzáles is a 84 y.o. male presents to the wound care center for follow up evaluation and management of right lower extremity wound. He reports new wound of the left lower extremity from probable trauma. Denies any unusual symptomatology. He has a history of A-fib, hyperlipidemia and hypertension. Past Medical History: Diagnosis Date Abnormal ECG DX:Abnormal ECG Atrial fibrillation (CMS/HCC) DX:Atrial fibrillation (HCC) Bilateral leg edema DX:Bilateral leg edema Cataract DX:Cataract DVT (deep venous thrombosis) (CMS/HCC) DX:DVT (deep venous thrombosis) ([facility]) History of cardiac catheterization 2011 DX:History of [...] block Open wound of left lower leg Current Outpatient Medications on File Prior to [...] tablet (125 mcg total) by mouth daily. qjekuhhulxl-wrfteutaswea-dnzduhclsm (Trelegy Ellipta) 200-62.5-25 mcg inhaler Take 1 puff by mouth daily. furosemide (LASIX) 20 mg tablet Take 1 tablet (20 mg total) by mouth daily. furosemide (LASIX) 40 mg tablet Take 1 tablet (40 mg total) by mouth daily. glucosamine/chondro major A/C/Mn (VIJAMJSKOQV-CQPOWGWNN-MXS C-MN ORAL) Take by mouth. hydrOXYzine pamoate [...] Respiratory: Negative. Cardiovascular: Positive for leg swelling. Skin: Positive for wound. Neurological: Negative. Psychiatric/Behavioral: Negative. Vital Signs: Visit Vitals BP 125/70 (BP Location: Left arm, Patient Position: Sitting) Pulse 79 Temp 36.6 ??C (97.8 ??F) Smoking Status Every Day PHYSICAL EXAM Physical Exam Constitutional: Appearance: Normal appearance. Cardiovascular: Rate and Rhythm: Normal rate. Pulmonary: Effort: Pulmonary effort is normal. Abdominal: General: Abdomen is flat. Musculoskeletal: Right lower leg: Edema present. Left lower leg: Edema present. Skin: General: Skin is warm and dry. Findings: Wound present. Comments: Superficial wounds of the bilateral lower extremities. No advancing erythema, streaking or purulence noted. No nonviable tissue Neurological: General: No focal deficit present. Mental Status: He is alert and oriented to person, place, and time. Psychiatric: Mood and Affect: Mood normal. Behavior: Behavior normal. Wound: As described WOUND ASSESSMENT If photograph of wound not visible on this note, please check under Media tab. Wound Venous Ulcer 04/06/24 Pretibial Left (Active) Wound Image 06/07/24 1255 Wound Bed Tissue Assessment Red 06/07/24 1200 Shape Irregular 06/07/24 1200 Wound Length (cm) 2 cm 06/07/24 1200 Wound Width (cm) 2 cm 06/07/24 1200 Wound Surface Area (cm^2) 4 cm^2 06/07/24 1200 Wound Depth (cm) 0.1 cm 06/07/24 1200 Wound Volume (cm^3) 0.4 cm^3 06/07/24 1200 Wound Healing % 99 06/07/24 1200 Drainage Description Sanguineous 06/07/24 1200 Drainage Amount Moderate 06/07/24 1200 Treatments Site care;Cleansed 06/07/24 1200 Dressing Changed Changed 06/07/24 1200 Dressing Status Dry;Old drainage 06/07/24 1200 Wound Bed Granulation (%) 100 % 06/07/24 1200 Wound Bed Slough (%) 10 % 05/04/24 1200 Wound Bed Eschar (%) 25 % 04/20/24 1100 Tunneling 0 cm 04/06/24 1502 Undermining 0 cm 04/06/24 1502 Edges Attached edges 06/07/24 1200 Wound Venous Ulcer 06/07/24 Pretibial Right (Active) Wound Image 06/07/24 1255 Shape Irregular 06/07/24 1255 Wound Length (cm) 1 cm 06/07/24 1255 Wound Width (cm) 1 cm 06/07/24 1255 Wound Surface Area (cm^2) 1 cm^2 06/07/24 1255 Wound Depth (cm) 0.1 cm 06/07/24 1255 Wound Volume (cm^3) 0.1 cm^3 06/07/24 1255 Drainage Description Serosanguineous 06/07/24 1255 Drainage Amount Moderate 06/07/24 1255 Treatments Cleansed;Site care 06/07/24 1255 Wound Bed Granulation (%) 100 % 06/07/24 1255 Edges Well-defined edges 06/07/24 1255 Pertinent Labs: Albumin Date Value Ref Range Status 05/13/2024 4.0 3.5 - 5.0 g/dL Final WBC Date Value Ref Range Status 05/13/2024 12.3 (H) 4.0 - 10.5 K/mcL Final Hemoglobin A1C Date Value Ref Range Status 05/13/2024 6.1 (H) <5.7 % Final Debridement Note: Procedures no debridement required today PLAN OF CARE No diagnosis found. Provider Orders: Patient Instructions PHYSICIAN ORDERS Go to ER if present with fever, shaking, chills, increased redness, or excess drainage. If you have any questions or concerns, please contact the wound center at Dept: [phone] Edema Control: Compression/Edema control: Medium Compression-Spandagrip (10-20 mmHg)Apply first thing in the morning, may remove at bedtime, unless otherwise directed. Avoid prolonged standing in one place for extended periods of time. Elevate leg(s) above level of heart when seated. Hand Hygiene: (W)codi hands before and after wound care. Call Wound Center at Dept: [phone] you have signs and symptoms of infection such as fever, chills, unusual or increased drainage, increasing odor, or unusual redness. WOUND #1 left lower leg Wound Cleansing & Dressings: Adaptic alginate, abd, kerlix, double Tubi G Every other day WOUND #2 right lower leg Wound Cleansing & Dressings: Adaptic alginate, abd, kerlix, double Tubi G Every other day Diet: Increase protein intake Misc/Additional orders: Misc/Additional orders: Smoking cessation was encouraged. Chantal Jackson RN Wound Care Supplies (Order ID: [id number]) Order Date: 04/06/2024 Diagnosis: Venous (peripheral) insufficiency (I87.2) Quantity: 1 Physician orders applied at clinic The cqks-pl-iaai evaluation was completed by: Sukhjinder Trotter MD [...] to heal: Good potential to Heal Plan: Continue with Aquacel Ag as contact. Would benefit from increasing tubular compression to double layer as tolerated for edema management. -I have asked the patient to see me frequently for treatment at the wound clinic, and expressed theimportance of compliance with this request. Dressing changes may be scheduled more frequently as needed at the wound clinic or with home care. -Vascular status will continually be assessed during treatment and appropriate vascular specialty referral made when indicated. -The wound will be continually assessed for the presence of infection. If infection is suspected, appropriate intervention or referral to infection disease specialist will be considered. -The patient has been educated concerning the need for increased protein to aid wound healing. Follow up in about 2 weeks (around 06/21/2024). 06/07/2024 2:17 PM EST Blossom Bradley NP documented in this encounter Plan of Treatment Upcoming Encounters Date Type Department Care Team (Late st Contact Info) Description 07/01/2024 2:00 PM EST Office Visit [facility] [address] [place] [phone] Catarina Jackson PA [address] [place] [address] documented as of this encounter Goals Goal Patient Goal Type Associated Problems Recent Progress Patient-Stated? Author Decrease Wound Volume by X% by date (in notes) Care Plan Impaired Tissue Luca Urias, RN Patient and Caregiver Understand Wound Care Education Care Plan Impaired Tissue No Luca Rivas, cutter machine volume breakdown reduced by X% by week 4 Care Plan Impaired Tissue No Luca Rivas, cutter machine volume breakdown reduced by X% by week 8 Care Plan Impaired Tissue No Evelyn, Luca, cutter machine volume breakdown reduced by X% by week 12 Care Plan Impaired Tissue On track( 024 3:43 PM EST) Luca Urias RN Note: Wound will be by 80% in 12 weeks Quit using tobacco (cigarettes, smokeless, etc) Care Plan Education needed on impact of smoking on wound Luca Urias RN Reduce tobacco use (cigarettes, smokeless, etc) Care Plan Education needed on impact of smoking on wound Luca Urias RN Decrease Wound Volume by X% by date (in notes) Care Plan Education needed on impact of smoking on wound Luca Urias RN Patient and Caregiver Understand Wound Care Education Care Plan Education needed related to ulceration/compr omised skin integrity. 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 04/06/2024 documented as of this encounter Care Teams Reimbursement Manager Relationship Specialty Start Date End Date Alton Lovelace MD [address] [place] [phone] PCP - General Internal Medicine 07/20/15 documented as of this encounter
--- OUTSIDE RECORDS SUMMARY | 2024-06-29 15:46 | XMS_ITS | Clinical Summary ---
Author Organization [facility] Address [address] [place] [id number] Care Team Providers Care Snowmobile Mechanic Name Role Phone Alton Lovelace MD Unavailable [phone] Alton Lovelace MD Primary Care Provider [phone] Eric Barth MD Unavailable [phone] Allergies Active Allergy Reactions Criticality Noted Date Comments Adhesives/Tape Rash/Dermatitis Low 11/05/2018 Paper tape okay Furosemide Hives,Itching Medium 06/02/2023 Onion Nausea And Vomiting Low 11/05/2018 Medications Medication Sig Dispensed Refills Start Date End Date Status albuterol (PROVENTIL HFA; VENTOLIN HFA) 108 (90 Base) MCG/ACT inhaler Inhale 2 puffs 4 (four) times a day. 12/02/2023 Active ascorbic acid 250 MG tablet Take 2 tablets (500 mg total) by mouth. Active aspirin enteric coated (ECOTRIN LOW STRENGTH) 81 MG EC tablet Take 1 tablet (81 mg total) by mouth daily. Active Xarelto 20 MG tablet 12/24/2023 Acti ve SSD 1 % cream 2 times a day. 08/31/2023 Active timolol (TIMOPTIC) 0.5 % ophthalmic solution MIX WITH MUPIROCIN OINTMENT AND SILVADENE CREAM AND APPLY MIXTURE TWICE DAILY TO LEG WOUNDS 10/17/2023 Active melatonin 5 MG Cap capsule Take 2 capsules (10 mg total) by mouth nightly. Active magnesium oxide (MAG-OX) 400 MG tablet Take 1 tablet (400 mg total) by mouth daily. Active Trelegy Ellipta 100-62.5-25 MCG/ACT inhaler 1 puff. 10/05/2023 Active digoxin 0.125 mg tablet Take 1 tablet (125 mcg total) by mouth daily. 08/18/2023 Active clobetasol (TEMOVATE) 0.05 % ointment APPLY TO RASH TWICE DAILY FOR 10 DAYS THEN HOLD ONE WEEK. MAY REPEAT NEEDED 11/13/2023 Active bumetanide (BUMEX) 1 MG tabletIndications:SO B (shortness of breath) Take 1 tablet (1 mg total) by mouth daily. 90 tablet 3 01/05/2024 Active spironolactone (ALDACTONE) 25 MG tabletIndications:SO B (shortness of breath) Take 1 tablet (25 mg total) by mouth daily. 100 tablet 3 01/08/2024 Active acetaminophen (TYLENOL) 325 MG tabletIndications:CO PD exacerbation (HCC) Take 2 tablets (650 mg total) by mouth 4 times daily (every 6 hours) as needed for moderate pain or headaches. 03/14/2024 Active benzonatate (TESSALON) 100 MG capsuleIndications:C OPD exacerbation (HCC) Take 1 capsule (100 mg total) by mouth 3 (three) times a day as needed for cough. 20 capsule 03/14/2024 Active guaiFENesin (MUCINEX) 600 MG 12 hr tabletIndications:CO PD exacerbation (HCC) Take 1 tablet (600 mg total) by mouth 2 (two) times a day. 03/14/2024 Active metoPROLOL TARTRATE (LOPRESSOR) 25 MG tabletIndications:At rial fibrillation, unspecified type (HCC) Take 1 tablet (25 mg total) by mouth 2 times a day. 03/14/2024 Active predniSONE (DELTASONE) 10 MG tabletIndications:CO PD exacerbation (HCC) Take 40 mg (= 4 tablets) by mouth daily for 2 days, then 30 mg (= 3 tablets) daily for 2 days, then 20 mg (= 2 tablets) daily for 2 days, then 10 mg (= 1 tablet) daily for 2 days. Take with food. 20 tablet 03/14/2024 Active Active Problems Problem Noted Date Diagnosed Date COPD exacerbation 03/12/2024 Acute hypoxic respiratory failure 03/12/2024 Lactic acidosis 03/12/2024 Cellulitis 03/12/2024 Resolved Problems Problem Noted Date Diagnosed Date Resolved Date Sepsis 03/12/2024 04/27/2024 Encounters Date Type Department Care Team Description 04/26/2024 9:40 AM EST Office Visit [facility] [place] [address] [facility] [address] [place] [phone] Eric Barth MD SOB (shortness of breath) (Primary Dx) 04/26/2024 Travel from Last 3 Months Social History Tobacco Use Types Packs/Day Years Used Date Smoking Tobacco: Some Days Cigarettes Smokeless Tobacco: Never Tobacco Cessation:Ready to Q uit: Not Asked; Counseling Given: Not Answered Alcohol Use Standard Drinks/Week Comments Never 0 (1 standard drink = 0.6 oz pur e alcohol) [facility] Utilities Answer Date Recorded In the past 12 months has th e [employer], gas, oil, or water company threatened to shut off services in your home? No 03/14/2024 AUDIT-C Answer Date Recorded Q1: How often do you have a drink containing alcohol? Never 03/12/2024 Q2: How many drinks containi ng alcohol do you have on a typical day when you are drinking? Patient does not drink Q3: How often do you have si x or more drinks on one occasion? Never 03/12/2024 Overall Financial Resource Strain (CARDIA) Answe r Date Recorded How hard is it for you to pa y for the very basics like food, housing, medical care, and heating? Not very hard 03/14/2024 Hunger Vital Sign Answer Date Recorded Within the past 12 months, y ou worried that your food would run out before you got the money to buy more. Never true 03/14/20 24 Within the past 12 months, t he food you bought just didn't last and you didn't have money to get more. Never true 03/14/2024 PRAPARE - Transportation Answer Date Re corded In the past 12 months, has l ack of transportation kept you from medical appointments or from getting medications? No 03/01 In the past 12 months, has l ack of transportation kept you from meetings, work, or from getting things needed for daily living? No 03/14/2024 Housing Stability Vital Sign Answer Massimo e Recorded In the last 12 months, was t here a time when you were not able to pay the mortgage or rent on time? No 03/14/2024 In the last 12 months, how many places have you lived? 1 03/14/2024 In the last 12 months, was t here a time when you did not have a steady place to sleep or slept in a correction (including now)? No 03/14/2024 Sex and Gender Information Value Date Recorded Sex Assigned at Male 12/16/2023 1:08 PM EDT Gender Identity Male 12/16/2023 1:08 PM EDT Sexual Orientation Heterosexual (straight) 12/15 1:08 PM EDT Last Filed Vital Signs Vital Sign Reading Time Taken Comments Blood Pressure 117/75 04/26/2024 9:33 AM EST Pulse 87 04/26/2024 9:33 AM EST Temperature 35.8 ??C (96.4 ??F) 03/14/2024 5:30 AM ED T Respiratory Rate 18 03/14/2024 5:30 AM EDT Oxygen Saturation 96% 04/26/2024 9:33 AM EST Inhaled Oxygen Concentration - - Weight 129 kg (283 lb 8 oz) 04/26/2024 9:[address] Height 182.9 cm (6') 04/26/2024 9:33 AM EST Body Mass Index 38.45 04/26/2024 9:33 AM EST Plan of Treatment Upcoming Encounters Date Type Department Care Team (Late st Contact Info) Description 08/22/2024 11:20 AM EDT Office Visit [facility] [address] [phone] Eric Barth MD [address] [address] 10/06/2024 11:00 AM EDT Appointment [facility] [address] [phone] Eric Barth MD [address] [address] Health Maintenance Due Date Last Done Comments DTaP/Tdap/Td Vaccines (1 - Tdap) 1959 Pneumococcal Vaccines 50+ (1 of 2 - PCV) 1959 Zoster (Shingles) Vaccine (1 of 2) 1990 RSV Vaccine 60 years and older and Patients (1 - 1-dose 75+ series) 2015 Influenza Vaccine 12/31/2023 COVID-19 Vaccine Completed 04/11/2024, , 05/28/2022, Additional history exists Hepatitis B Vaccines Aged Out No long er eligible based on patient's age to complete this topic Procedures Procedure Name Priority Date/Time Associated Diagnosis Comments ECG 12-LEAD Routine 04/26/2024 9:37 AM EST SOB (shortness of breath) from Last 3 Months Results * ECG 12 lead (04/26/2024 9:37 AM EST) Ventricular rate 87 BPM EKG [facility] QRS duration 148 ms EKG [facility] Q-T interval 366 ms EKG [facility] QTC calculation (Bazett) 440 ms EKG [facility] R axis -30 degrees EKG [facility] T axis 31 degrees EKG [facility] 04/26/2024 9:37 AM EST Narrative EKG [facility] - 04/26/2024 9:51 AM EST Atrial fibrillation Left axis deviation Right bundle branch block Cannot rule out Inferior infarct , age undetermined Abnormal ECG When compared with ECG of 12-Mar-2024 05:19, Minimal criteria for Inferior infarct are now Present Confirmed by MD Barth Usama ([id number]) on 04/26/2024 9:51:12 AM Procedure Note Eric Barth MD - 04/26/2024 Atrial fibrillation Left axis deviation Right bundle branch block Cannot rule out Inferior infarct , age undetermined Abnormal ECG When compared with ECG of 12-Mar-2024 05:19, Minimal criteria for Inferior infarct are now Present Confirmed by MD Barth Usama ([id number]) on 04/26/2024 9:51:12 AM Eric Suazo MD ECG ORDERABLES EKG [facility] from Last 3 Months Advance Directives * Full Code (Latest Code Status on File) Date Activated Date Inactivated Comments 03/12/2024 8:07 AM Healthcare Agents on File Name Relationship Healthcare Agent Relationship Communication Holly Gonzáles Spouse 4. Next of Kin (Spouse, Adult Child, Parent, Adult Sibling, Grandparent) Care Teams Snowmobile Mechanic Relationship Specialty Start Date End Date Alton Lovelace MD [address] [place] [address] PCP - APN[employer] Attributed 06/01/22 Alton Lovelace MD [address] [place] [address] PCP - General Internal Medicine 12/16/23 Eric Barth MD [place] [address] Primary Closet Organizer Cardiovascular Disease 12/24/23
--- OUTSIDE RECORDS SUMMARY | 2024-06-29 15:47 | XMS_ITS ---
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 06/07/2024 Open wound of left lower leg 04/06/2024 Abnormal ECG 06/20/2022 Bilateral leg edema 06/20/2022 Hypertension 06/20/2022 Right bundle branch block 06/20/2022 Paroxysmal atrial fibrillation 02/11/2021 Acute bilateral deep vein thrombosis (DVT) of fe moral veins 01/04/2021 DVT of lower extremity, bilateral 01/04/2021 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 02/08/2018 Left ventricular hypertrophy 09/05/2016 Additional Health Concerns Active Problems Noted Date Diagnosed Date Impaired Tissue 04/06/2024 Education needed on impact of smoking on wound 1 06/06/2023 Education needed related to ulceration/compromised skin integrity. 04/06/2024 Goals Goal Patient Goal Type Associated Problems Recent Progress Patient-Stated? Author Decrease Wound Volume by X% by date (in notes) Care Plan Impaired Tissue No Luca Rivas, JACI Patient and Caregiver Understand Wound Care Education Care Plan Impaired Tissue No Luca Rivas, medical collector volume breakdown reduced by X% by week 4 Care Plan Impaired Tissue No Luca Rivas, medical collector volume breakdown reduced by X% by week 8 Care Plan Impaired Tissue Luca Urias, medical collector volume breakdown reduced by X% by week 12 Care Plan Impaired Tissue On track( 024 3:43 PM EST) No Luca Rivas RN Note: Wound will be by 80% [...] omised skin integrity. No Luca Rivas RN Interventions Intervention Entry Date Outcome Provide caregiver with wound care procedure information 04/06/2024 Educate caregiver on proper wound care procedures 04/06/2024 Give provider list of wound care supplies 04/06/2024 Refill wound care supplies 04/06/2024 Send Wound Care Supplies 04/06/2024 Give provider list of wound care supplies 04/06/2024 Refill wound care supplies 04/06/2024 Send Wound Care Supplies 04/06/2024 Provide caregiver with wound care procedure information 04/06/2024 Educate caregiver on proper wound care procedures 04/06/2024 Document patient eligibility for HBO 04/06/2024 Assess patient for HBO treatment 04/06/2024 Record wound depth 04/06/2024 Record total wound area 04/06/2024 Measure wound progress 04/06/2024 Create an action plan identifying patient strengths and supports 04/06/2024 Establish quit date with patient 04/06/2024 Discuss prior cessation attempts 04/06/2024 Discuss preferred method of cessation and plan 04/06/2024 Discuss barriers to smoking cessation 04/06/2024 Discuss smoking status with patient 04/06/2024 Create an action plan identifying patient strengths and supports 04/06/2024 Establish quit date with patient 04/06/2024 Discuss prior cessation attempts 04/06/2024 Discuss preferred method of cessation and plan 04/06/2024 Discuss barriers to smoking cessation 04/06/2024 Discuss smoking status with patient 04/06/2024 Provide caregiver with wound care procedure information 04/06/2024 Educate caregiver on proper wound care procedures 04/06/2024 Document patient eligibility for HBO 04/06/2024 Assess patient for HBO treatment 04/06/2024 Record wound depth 04/06/2024 Record total wound area 04/06/2024 Provide caregiver with wound care procedure information 04/06/2024 Educate caregiver on proper wound care procedures 04/06/2024 Document patient eligibility for HBO 04/06/2024 Assess patient for HBO treatment 04/06/2024 Record wound depth 04/06/2024 Record total wound area 04/06/2024 Measure wound progress 04/06/2024 Provide caregiver with wound care procedure information 04/06/2024 Educate caregiver on proper wound care procedures 04/06/2024 Document patient eligibility for HBO 04/06/2024 Assess patient for HBO treatment 04/06/2024 Record wound depth 04/06/2024 Record total wound area 04/06/2024 Measure wound progress 04/06/2024 Provide caregiver with wound care procedure information 04/06/2024 Educate caregiver on proper wound care procedures 04/06/2024 Give provider list of wound care supplies 04/06/2024 Refill wound care supplies 04/06/2024 Send Wound Care Supplies 04/06/2024 Give provider list of wound care supplies 04/06/2024 Refill wound care supplies 04/06/2024 Send Wound Care Supplies 04/06/2024 Provide caregiver with wound care procedure information 04/06/2024 Educate caregiver on proper wound care procedures 04/06/2024 Document patient eligibility for HBO 04/06/2024 Assess patient for HBO treatment 04/06/2024 Record wound depth 04/06/2024 Record total wound area 04/06/2024 Measure wound progress 04/06/2024 Related Goals and Interventions Goal Associated Intervent ions Decrease Wound Volume by X% by date (in notes) Give provider list of wound care supplie s; Refill wound care supplies; Send Wound Care Supplies; Provide caregiver with wound care procedure information; Educate caregiver on proper wound care procedures; Document patient eligibility for HBO; Assess patient for HBO treatment; Record wound depth; Record total wound area; Measure wound progress Patient and Caregiver Unders tand Wound Care Education Provide caregiver with wound care proced ure information; Educate caregiver on proper wound care procedures; Give provider list of wound care supplies; Refill wound care supplies; Send Wound Care Supplies Wound volume breakdown reduc ed by X% by week 4 Provide caregiver with wound care proced ure information; Educate caregiver on proper wound care procedures; Document patient eligibility for HBO; Assess patient for HBO treatment; Record wound depth; Record total wound area; Measure wound progress Wound volume breakdown reduc ed by X% by week 8 Provide caregiver with wound care proced ure information; Educate caregiver on proper wound care procedures; Document patient eligibility for HBO; Assess patient for HBO treatment; Record wound depth; Record total wound area; Measure wound progress Wound volume breakdown reduc ed by X% by week 12 Provide caregiver with wound care proced ure information; Educate caregiver on proper wound care procedures; Document patient eligibility for HBO; Assess patient for HBO treatment; Record wound depth; Record total wound area Quit using tobacco (cigarett es, smokeless, etc) Create an action plan identifying patien t strengths and supports; Establish quit date with patient; Discuss prior cessation attempts; Discuss preferred method of cessation and plan; Discuss barriers to smoking cessation; Discuss smoking status with patient Reduce tobacco use (cigarett es, smokeless, etc) Create an action plan identifying patien t strengths and supports; Establish quit date with patient; Discuss prior cessation attempts; Discuss preferred method of cessation and plan; Discuss barriers to smoking cessation; Discuss smoking status with patient Decrease Wound Volume by X% by date (in notes) Give provider list of wound care supplie s; Refill wound care supplies; Send Wound Care Supplies; Provide caregiver with wound care procedure information; Educate caregiver on proper wound care procedures; Document patient eligibility for HBO; Assess patient for HBO treatment; Record wound depth; Record total wound area; Measure wound progress Patient and Caregiver Unders tand Wound Care Education Provide caregiver with wound care proced ure information; Educate caregiver on proper wound care procedures; Give provider list of wound care supplies; Refill wound care supplies; Send Wound Care Supplies
--- OUTSIDE RECORDS SUMMARY | 2024-06-29 15:47 | XMS_ITS | Clinical Summary ---
Author Organization [address] [facility] Address [address] [place] [address] Phone Care Team Providers Care Procedural Nurse Name Role Phone Alton Lovelace MD Primary Care Provider [phone] Allergies Active Allergy Reactions Criticality Noted Date Comments Adhesive Rash Low 11/05/2018 Paper tape okay Adhesive Tape-Silicones Rash Low 11/05/2018 Paper tape okay Furosemide Hives,Itching Medium 06/02/2023 Onion Nausea And Vomiting Low 11/05/2018 Medications Medication Sig Dispensed Refills Start Date End Date Status albuterol HFA (PROAIR HFA ; PROVENTIL HFA ; VENTOLIN HFA) 90 mcg/actuation inhaler Inhale 2 puffs into the lungs 4 (four) times a day. 02/26/2021 Active aspirin 81 mg EC tablet Take 81 mg by mouth daily. Active furosemide (LASIX) 20 mg tablet Take 1 tablet (20 mg total) by mouth daily. 04/07/2022 Active furosemide (LASIX) 40 mg tablet Take 1 tablet (40 mg total) by mouth daily. 04/21/2022 Active glucosamine/chondro major A/C/Mn (GLUCOSAMINE-CHONDR OIT-VIT C-MN ORAL) Take by mouth. Ac tive magnesium oxide (MAG-OX) 400 mg (241.3 elemental magnesium) tablet Take 1 tablet (400 mg total) by mouth daily. Active metoprolol tartrate (LOPRESSOR) 50 mg tablet TAKE 1 TABLET BY MOUTH TWICE DAILY 01/13/2022 Active rivaroxaban (XARELTO) 20 mg tablet Take 1 tablet (20 mg total) by mouth every evening. 01/27/2021 Active spironolactone (ALDACTONE) 25 mg tablet Take 0.5 tablets (12.5 mg total) by mouth daily. 04/21/2022 Active fluticasone-umeclid inium-vilanterol (Trelegy Ellipta) 200-62.5-25 mcg inhaler Take 1 puff by mouth daily. 02/26/2021 Active zinc sulfate (ZINCATE) 220 mg (50 mg elemental zinc) capsule Take 1 capsule (220 mg total) by mouth daily. Active ascorbic acid (VITAMIN C) 250 mg tablet Take 500 mg by mouth daily. Active betamethasone dipropionate (DIPROSONE) 0.05 % cream APPLY TO PROBLEM AREAS TWICE DAILY NO LONGER THAN 2 WEEKS THEN DAILY NEEDED 08/14/2023 Active bumetanide (BUMEX) 1 mg tablet Take 1 tablet (1 mg total) by mouth daily. 01/05/2024 Active digoxin (LANOXIN) 125 mcg (0.125 mg) tablet Take 1 tablet (125 mcg total) by mouth daily. 08/18/2023 Active timolol (TIMOPTIC) 0.5 % ophthalmic solution MIX WITH MUPIROCIN OINTMENT AND SILVADENE CREAM AND APPLY MIXTURE TWICE DAILY TO LEG WOUNDS 10/17/2023 Active hydrOXYzine pamoate (VistariL) 25 mg capsule Take 1 capsule (25 mg total) by mouth 3 (three) times a day if needed for itching for up to 10 days. 30 capsule 05/04/2024 Active mupirocin (BACTROBAN) 2 % ointment Apply topically 1 (one) time each day. 30 g 06/21/2024 07/21/2024 Active lidocaine (XYLOCAINE) 4 % external solution Apply topically 1 (one) time each day. 100 mL 1 06/21/2024 Active Active Problems Problem Noted Date Diagnosed [...] lower extremity 02/08/2018 Left ventricular hypertrophy 09/05/2016 Encounters Date Type Department Care Team Description 06/21/2024 12:30 PM EST Office Visit [facility] [place] [address] [place] [address] Blossom Bradley NP 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 (CMS/HCC) (Primary Dx); 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 (CMS/HCC); Lymphedema 06/07/2024 12:30 PM EST Office Visit [facility] [place] [address] [place] [phone] Blossom Bradley NP 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 (CMS/HCC) (Primary Dx); 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 (CMS/HCC) 05/18/2024 12:30 PM EST Office Visit [facility] [place] [address] [place] [phone] Sukhjinder Trotter MD Open wound of left lower leg, subsequent encounter (Primary Dx); Bilateral leg edema 05/04/2024 12:30 PM EST Office Visit [facility] [place] [address] [place] [phone] Sukhjinder Trotter MD Open wound of left lower leg, subsequent encounter (Primary Dx); Venous (peripheral) insufficiency 04/20/2024 11:00 AM EST Office Visit [facility] [place] [address] [place] [phone] Catarina Jackson PA Open wound of left lower leg, subsequent encounter (Primary Dx); Bilateral leg edema; Deep vein thrombosis (DVT) of distal vein of both lower extremities, unspecified chronicity (CMS/HCC); Hypertension, unspecified type; Acute bilateral deep vein thrombosis (DVT) of femoral veins (CMS/HCC); 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, unspecified laterality ([facility]); Paroxysmal atrial fibrillation ([facility]) 04/06/2024 3:15 PM EST Office Visit [facility] [place] [address] [place] [address] Sukhjinder Trotter MD Open wound of left lower leg, subsequent encounter (Primary Dx); Venous (peripheral) insufficiency from Last 3 Months Immunizations Name Administration Dates Next Due Moderna SARS-CoV-2 COVID-19, mRNA, LNP-S, preservative free 03/28/2021,08/06/2020,07/09/2020 Surgical History Surgery Date Site/Laterality Comments TOTAL KNEE ARTHROPLASTY Bilateral PROCEDURE:TOTAL KNEE ARTHROPLASTY HERNIA REPAIR Bilateral PROCEDURE:INGUINAL HERNIA REPAIR CATARACT EXTRACTION W/ INTRAOCULAR LENS IMPLANT 11/10/2018 Left PROCEDURE:CATARACT EXTRACTION W/ INTRAOCULAR LENS IMPLANT;COMMENT:Procedure: EXTRACTION CATARACT WITH IOL IMPLANT; Surgeon: Rashard Villalobos MD; Location: [facility]; Service: Ophthalmology; Laterality: Left; CATARACT EXTRACTION W/ INTRAOCULAR LENS IMPLANT 11/16/2018 Right PROCEDURE:CATARACT EXTRACTION W/ INTRAOCULAR LENS IMPLANT;COMMENT:Procedure: EXTRACTION CATARACT WITH IOL IMPLANT; Surgeon: Rashard Villalobos MD; Location: [facility]; Service: Ophthalmology; Laterality: Right; Medical History Medical History Date Comments Hypertension DX:Hypertension Abnormal ECG DX:Abnormal ECG Right bundle branch block DX:Rig ht bundle branch block History of cardiac catheterization 2011 DX:History of cardiac catheterization;COMMENT:No obstructive CAD Bilateral leg edema DX:Bilateral leg edema DVT (deep venous thrombosis) ([facility]) DX:DVT (deep venous thrombosis) ([facility]) Mixed hyperlipidemia DX:Mixed hy perlipidemia Cataract DX:Cataract Atrial fibrillation ([facility]) DX :Atrial fibrillation ([facility]) Family History Medical History Relation Name Comments Heart failure Father Relation Name Status Comments Father Social History Tobacco Use Types Packs/Day Years Used Date Smoking Tobacco: Every Day Cigarettes Smokeless Tobacco: Never Tobacco Cessation:Ready to [...] file Not on file Not on file Obstetrics History Last Filed Vital Signs Vital Sign Reading Time Taken Comments Blood Pressure 130/75 06/21/2024 12:48 PM EST Pulse 92 06/21/2024 12:48 PM EST Temperature 36.9 ??C (98.4 ??F) 06/21/2024 12:[address] Respiratory Rate 16 04/20/2024 11:24 AM EST Oxygen Saturation 98% 04/06/2024 2:56 PM EST Inhaled Oxygen Concentration - - Weight 125 kg (275 lb) 12/28/2023 9:06 AM EDT Height 182.9 cm (6') 12/28/2023 9:08 AM EDT Body Mass Index 37.3 12/28/2023 9:06 AM EDT Plan of Treatment Upcoming Encounters Date Type Department Care Team (Late st Contact Info) Description 07/01/2024 2:00 PM EST Office Visit [facility] [place] [address] [place] [phone] Catarina Jackson PA [address] [place] [address] Health Maintenance Due Date Last Done Comments Pneumococcal Vaccine: 65+ Years (1 of 2 - PCV) 1946 Diabetes: Annual Foot Exam 1950 Diabetes: Annual Retina Eye Exam 1950 DTaP,Tdap,and Td Vaccines (1 - Tdap) 1959 Zoster Vaccines (1 of 2) 1990 RSV Immunization Patients 60+ Years Old (1 - 1-dose 75+ series) 2015 Depression Screening 04/30/2022 Medicare Annual Wellness Visit 04/30/2022 Social Influencers of Health Screening 04/30/2022 Influenza Vaccine (#1) 2024 Diabetes: Blood Sugar Control Test (HGBA1C) 11/11/2024 05/13/2024 Diabetes: Annual Urine Albumin-Creatinine Ratio (uACR) 05/13/2025 05/13/2024 Diabetes: Annual GFR (Glomerular Filtration Rate) 05/13/2025 05/13/2024, 03/14/2024, 03/13/2024, Additional history exists Hypertension/CHF/CAD Annual BMP Blood Test 05/13/2025 05/13/2024, 03/14/2024, 03/13/2024, Additional history exists Falls Risk Assessment 06/21/2025 06/21/2024 Cholesterol Screening (Lipid Panel) 05/13/2029 05/13/2024, 06/09/2023, 09/10/2022, Additional history exists COVID-19 Vaccine Completed 04/11/2024, , 05/28/2022, Additional history exists HIB Vaccines Aged Out No longer eligi ble based on patient's age to complete this topic HPV Vaccines Aged Out No longer eligi ble based on patient's age to complete this topic Hepatitis A Vaccines Aged Out No long er eligible based on patient's age to complete this topic Hepatitis B Vaccines Aged Out No long er eligible based on patient's age to complete this topic IPV Vaccines Aged Out No longer eligi ble based on patient's age to complete this topic MMR Vaccines Aged Out No longer eligi ble based on patient's age to complete this topic Meningococcal ACWY Vaccine Aged Out N o longer eligible based on patient's age to complete this topic RSV Immunization Patients Under 20 months Aged Out No longer eligible based on patient's age to complete this topic Varicella Vaccines Aged Out No longer eligible based on patient's age to complete this topic Goals Goal Patient Goal Type Associated Problems Recent Progress Patient-Stated? Author Decrease Wound Volume by X% by date (in notes) Care Plan Impaired Tissue Luca Urias RN Patient and Caregiver Understand Wound Care Education Care Plan Impaired Tissue Luca Urias RN Wound volume breakdown reduced by X% by week 4 Care Plan Impaired Tissue Luca Urias RN Wound volume breakdown reduced by X% by week 8 Care Plan Impaired Tissue Luca Urias, clasp machine operator volume breakdown reduced by X% by week 12 Care Plan Impaired Tissue On track( 024 3:43 PM EST) Luca Urias RN Note: Wound will be by 80% in 12 weeks Quit using tobacco (cigarettes, smokeless, etc) Care Plan Education needed on impact of smoking on wound Luca Urias, JACI Reduce tobacco use (cigarettes, smokeless, etc) Care Plan Education needed on impact of smoking on wound No Luca Rivas, RN Decrease Wound Volume by X% by date (in notes) Care Plan Education needed on impact of smoking on wound No Luca Rivas, JACI Patient and Caregiver Understand Wound Care Education Care Plan Education needed related to ulceration/compr omised skin integrity. No Luca Rivas, RN Medical Devices Implanted Type Area Student Ministries Director Device Identifier Shelf Expiration Date Model / Serial / Lot Lens Acrysof Iq Natrl 0d +22.5d L 13mm 6mm Acrylic 118.7 A - [id number] - [id number] Implanted:Qty: 1 on 11/10/2018 by Rashard Villalobos MD Left: Eye BRIDGER 09/28/2022 [id number] / [id number] / Lens Acrysof 0d +23d L 13mm 6mm Acrylic 118.7 A - [id number] - [id number] Implanted:Qty: 1 on 11/16/2018 by Rashard Villalobos MD Right: Eye BRIDGER 05/31/2022 [id number] / [id number] / Procedures Procedure Name Priority Date/Time Associated Diagnosis Comments DEBRIDEMENT Routine 06/21/2024 12:30 PM EST 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 (CMS/HCC) 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 (CMS/HCC) Lymphedema CBC WITH AUTO DIFFERENTIAL Routine 05/13/2024 11:47 AM EST Obesity, unspecified Atrial fibrillation (CMS/HCC) Body mass index 40.0-44.9, adult (CMS/HCC) 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) Chronic kidney disease, unspecified Chronic systolic heart failure (CMS/HCC) Diabetic foot ulcer with osteomyelitis (CMS/HCC) MICROALBUMIN CREATININE URINE RATIO Routine 05/13/2024 11:47 AM EST Obesity, unspecified Atrial fibrillation (CMS/HCC) Body mass index 40.0-44.9, adult (CMS/HCC) 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) Chronic kidney disease, unspecified Chronic systolic heart failure (CMS/HCC) Diabetic foot ulcer with osteomyelitis (CMS/HCC) LIPID PANEL Routine 05/13/2024 11:47 AM EST Obesity, unspecified Atrial fibrillation (CMS/HCC) Body mass index 40.0-44.9, adult (CMS/HCC) 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) Chronic kidney disease, unspecified Chronic systolic heart failure (CMS/HCC) Diabetic foot ulcer with osteomyelitis (CMS/HCC) CBC AND DIFFERENTIAL Routine 05/13/2024 11:47 AM EST Obesity, unspecified Atrial fibrillation (CMS/HCC) Body mass index 40.0-44.9, adult (CMS/HCC) 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) Chronic kidney disease, unspecified Chronic systolic heart failure (CMS/HCC) Diabetic foot ulcer with osteomyelitis (CMS/HCC) HEMOGLOBIN A1C Routine 05/13/2024 11:47 AM EST Obesity, unspecified Atrial fibrillation (CMS/HCC) Body mass index 40.0-44.9, adult (CMS/HCC) 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) Chronic kidney disease, unspecified Chronic systolic heart failure (CMS/HCC) Diabetic foot ulcer with osteomyelitis (CMS/HCC) THYROID STIMULATING HORMONE WITH REFLEX FREE T4 Routine 05/13/2024 11:47 AM EST Obesity, unspecified Atrial fibrillation (CMS/HCC) Body mass index 40.0-44.9, adult (CMS/HCC) 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) Chronic kidney disease, unspecified Chronic systolic heart failure (CMS/HCC) Diabetic foot ulcer with osteomyelitis (CMS/HCC) COMPREHENSIVE METABOLIC PANEL Routine 05/13/2024 11:47 AM EST Obesity, unspecified Atrial fibrillation (CMS/HCC) Body mass index 40.0-44.9, adult (CMS/HCC) 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) Chronic kidney disease, unspecified Chronic systolic heart failure (CMS/HCC) Diabetic foot ulcer with osteomyelitis (CMS/HCC) DEBRIDEMENT Routine 04/20/2024 11:00 AM EST Open wound of left lower leg, subsequent encounter Bilateral leg edema Deep vein thrombosis (DVT) of distal vein of both lower extremities, unspecified chronicity (CMS/HCC) Hypertension, unspecified type Acute bilateral deep vein thrombosis (DVT) of femoral veins (CMS/HCC) 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, unspecified laterality (CMS/HCC) Paroxysmal atrial fibrillation (CMS/HCC) DEBRIDEMENT Routine 04/06/2024 3:15 PM EST Venous (peripheral) insufficiency Open wound of left lower leg, subsequent encounter from Last 3 Months Results * Debridement Venous Ulcer Right;Medial Ankle [...] ??06/21/2024 2:00 PM Debridement Details: ??Performed by: ??INSTRUCTOR OF NURSING ??Type: selective ?Pain control: ??Lidocaine 5% ??Pain [...] treatment: ??Procedure was tolerated well Blossom Bradley INSTRUCTOR OF NURSING IN CLINIC/BEDSIDE OR DERABLES * Thyroid stimulating hormone with reflex free T4 (05/13/2024 11:47 AM EST) [facility] TSH 2.58 0.45 - 5.33 mcIU/mL LAB CHEMISTRY METHOD 05/13/2024 2:59 PM EST [facility] Blood Venous blood specimen / Unknown Venipuncture / Unknown 05/13/2024 11:47 AM EST 05/13/2024 11:47 AM EST Alton Lovelace MD LAB BLOOD ORDERABLES [facility] [address] [place] [id number], * (ABNORMAL) CBC auto differential (05/13/2024 11:47 AM EST) [facility] WBC 12.3(H) 4.0 - 10.5 K/mcL LAB HEMETOLOGY METHOD 05/13/2024 2:23 PM EST [facility] RBC 4.30(L) 4.70 - 6.00 M/mcL LAB HEMETOLOGY METHOD 05/13/2024 2:23 PM [facility] Hemoglobin 14.1 13.5 - 18.0 g/dL LAB HEMETOLOGY METHOD 05/13/2024 2:23 PM [facility] Hematocrit 41.9 40.0 - 54.0 % LAB HEMETOLOGY METHOD 05/13/2024 2:23 PM [facility] MCV 97.4 78.0 - 100.0 FL LAB HEMETOLOGY METHOD 05/13/2024 2:23 PM [facility] MCH 32.7 25.0 - 33.0 pcg LAB HEMETOLOGY METHOD 05/13/2024 2:23 PM [facility] MCHC 33.6 32.0 - 36.0 g/dL LAB HEMETOLOGY METHOD 05/13/2024 2:23 PM [facility] RDW 13.8 12.1 - 17.7 % LAB HEMETOLOGY METHOD 05/13/2024 2:23 PM [facility] Platelets 306 150 - 450 K/mcL LAB HEMETOLOGY METHOD 05/13/2024 2:23 PM [facility] MPV 8.0 7.4 - 11.4 FL LAB HEMETOLOGY METHOD 05/13/2024 2:23 PM [facility] Neutrophils Relative 69.2 44.0 - 74.0 % LAB HEMETOLOGY METHOD 05/13/2024 2:23 PM [facility] Lymphocytes Relative 16.5(L) 20.0 - 48.0 % LAB HEMETOLOGY METHOD 05/13/2024 2:23 PM [facility] Monocytes Relative 8.2 2.0 - 12.0 % LAB HEMETOLOGY METHOD 05/13/2024 2:23 PM [facility] Eosinophils Relative 5.1 0.0 - 6.0 % LAB HEMETOLOGY METHOD 05/13/2024 2:23 PM [facility] Basophils Relative 1.0 0.0 - 2.0 % LAB HEMETOLOGY METHOD 05/13/2024 2:23 PM [facility] Neutrophils Absolute 8.50(H) 1.80 - 7.80 K/mcL LAB HEMETOLOGY METHOD 05/13/2024 2:23 PM EST [facility] Lymphocytes Absolute 2.00 1.00 - 3.20 K/mcL LAB HEMETOLOGY METHOD 05/13/2024 2:23 PM EST [facility] Monocytes Absolute 1.00(H) 0.00 - 0.80 K/mcL LAB HEMETOLOGY METHOD 05/13/2024 2:23 PM EST [facility] Eosinophils Absolute 0.60(H) 0.00 - 0.50 K/mcL LAB HEMETOLOGY METHOD 05/13/2024 2:23 PM EST [facility] Basophils Absolute 0.10 0.00 - 0.20 K/mcL LAB HEMETOLOGY METHOD 05/13/2024 2:23 PM EST [facility] Blood Venous blood specimen / Unknown Venipuncture / Unknown 05/13/2024 11:47 AM EST 05/13/2024 11:47 AM EST Alton Lovelace MD LAB BLOOD ORDERABLES [facility] [address] [place] [address], * Microalbumin creatinine urine ratio (05/13/2024 11:47 AM EST) Creatinine, Urine 200.0 mg/dL LAB CHEMISTRY METHOD 05/13/2024 3:33 PM EST [facility] Comment:No established refer ence range. Microalb, Ur 9.7 mg/L LAB CHEMISTRY METHOD 05/13/2024 3:33 PM EST [facility] Comment:No established refer ence range. Microalb/Creat Ratio 5 <30 mg/g creat LAB CHEMISTRY METHOD 05/13/2024 3:33 PM EST [facility] Urine Urine specimen obtained by clean catch procedure / Unknown Non-blood Collection / Unknown 05/13/2024 11:47 AM EST 05/13/2024 11:47 AM EST Alton Lovelace MD LAB URINE ORDERABLES [facility] [address] [place] [address], * (ABNORMAL) Hemoglobin A1c (05/13/2024 11:47 AM EST) Hemoglobin A1C 6.1(H) <5.7 % LAB CHEMISTRY METHOD 05/14/2024 8:16 AM EST [facility] Mean Bld Glu Estim. 128 mg/dL LAB CHEMISTRY METHOD 05/14/2024 8:16 AM EST [facility] Blood Venous blood specimen / Unknown Venipuncture / Unknown 05/13/2024 11:47 AM EST 05/13/2024 11:47 AM EST Narrative [facility] - 05/14/2024 8:16 AM EST ADA Guidelines: ?? Increased risk Diabetes Mellitus A1C 5.7 - 6.4% and Fasting Blood Glucose 100 - 125 mg/dl Diabetes Mellitus: A1C >6.5% and Fasting Blood Glucose >125 mg/dl Alton Lovelace MD LAB BLOOD ORDERABLES [facility] [address] [place] [address], [place] [phone] * (ABNORMAL) Lipid panel (05/13/2024 11:47 AM EST) Cholesterol 148 0 - 200 mg/dL LAB CHEMISTRY METHOD 05/13/2024 2:55 PM EST [facility] Triglycerides 177(H) <150 mg/dL LAB CHEMISTRY METHOD 05/13/2024 2:55 PM EST [facility] HDL 35 mg/dL LAB CHEMISTRY METHOD 05/13/2024 2:55 PM EST [facility] LDL Calculated 78 50 - 130 mg/dL LAB CHEMISTRY METHOD 05/13/2024 2:55 PM [facility] VLDL Cholesterol Efrain 35.4 mg/dL LAB CHEMISTRY METHOD 05/13/2024 2:55 PM EST [facility] Comment:No established refer ence range. Blood Venous blood specimen / Unknown Venipuncture / Unknown 05/13/2024 11:47 AM EST 05/13/2024 11:47 AM EST Alton Lovelace MD LAB BLOOD ORDERABLES [facility] [address] [place] [address], * (ABNORMAL) Comprehensive metabolic panel (05/13/2024 11:47 AM EST) Sodium 140 135 - 145 mmol/L LAB CHEMISTRY METHOD 05/13/2024 2:55 PM [facility] Potassium 4.5 3.5 - 5.1 mmol/L LAB CHEMISTRY METHOD 05/13/2024 2:55 PM [facility] Chloride 102 98 - 107 mmol/L LAB CHEMISTRY METHOD 05/13/2024 2:55 PM [facility] CO2 27 24 - 32 mmol/L LAB CHEMISTRY METHOD 05/13/2024 2:55 PM [facility] Anion Gap 11 5 - 14 LAB CHEMISTRY METHOD 05/13/2024 2:55 PM [facility] Glucose 114 70 - 199 mg/dL LAB CHEMISTRY METHOD 05/13/2024 2:55 PM [facility] BUN 32(H) 9 - 20 mg/dL LAB CHEMISTRY METHOD 05/13/2024 2:55 PM [facility] Creatinine 1.70(H) 0.70 - 1.30 mg/dL LAB CHEMISTRY METHOD 05/13/2024 2:55 PM [facility] eGFR 39(L) >=60 mL/min/1. 73m2 LAB CHEMISTRY METHOD 05/13/2024 2:55 PM EST [facility] Comment:Calculation based on the??Chronic Kidney Disease Epidemiology Collaboration (CKD-EPI) equation refit??without adjustment for race. BUN/Creatinine Ratio 18.8 12.0 - 20.0 LAB CHEMISTRY METHOD 05/13/2024 2:55 PM [facility] Calcium 10.0 8.4 - 10.2 mg/dL LAB CHEMISTRY METHOD 05/13/2024 2:55 PM [facility] AST (SGOT) 22 5 - 40 unit/L LAB CHEMISTRY METHOD 05/13/2024 2:55 PM [facility] ALT (SGPT) 24 7 - 52 unit/L LAB CHEMISTRY METHOD 05/13/2024 2:55 PM [facility] Alkaline Phosphatase 83 34 - 104 unit/L LAB CHEMISTRY METHOD 05/13/2024 2:55 PM [facility] Total Protein 6.9 6.4 - 8.5 g/dL LAB CHEMISTRY METHOD 05/13/2024 2:55 PM [facility] Albumin 4.0 3.5 - 5.0 g/dL LAB CHEMISTRY METHOD 05/13/2024 2:55 PM [facility] Total Bilirubin 0.6 0.3 - 1.0 mg/dL LAB CHEMISTRY METHOD 05/13/2024 2:55 PM EST [facility] Blood Venous blood specimen / Unknown Venipuncture / Unknown 05/13/2024 11:47 AM EST 05/13/2024 11:47 AM EST Alton Lovelace MD LAB BLOOD ORDERABLES [facility] [address] [place] [address], * Debridement Venous Ulcer Left Pretibial (04/20/2024 11:00 AM EST) Narrative Sukhjinder Trotter MD - 04/20/2024 11:00 AM EST YESSICA Contreras ? 04/20/2024 11:52 AM Debridement Venous Ulcer Left Pretibial Performed by: YESSICA Contreras Authorized by: YESSICA Contreras ?? Associated wounds: Wound Venous Ulcer 04/06/24 Pretibial Left Consent: ??Consent obtained: ??Verbal ??Consent given by: ??Patient ??Risks discussed: Yes ?? Time out: Immediately prior to the procedure a time out was called ?? Time out performed at: ??04/20/2024 11:42 AM Debridement Details: ??Performed by: ??PA ??Type: selective ?Pain control: ??Lidocaine 4% ??Pain control administration: topical anesthesia ?Severity of Tissue Pre Debridement: ??Fat layer exposed ??Severity of Tissue Post Debridement: ??Fat layer exposed ??Time taken: ??04/20/2024 11:00 AM ??Length (cm): ??14.5 ??Width (cm): ??11 ??Depth (cm): ??0.1 ??Area (cm^2): ??159.5 ??Time taken: ??04/20/2024 11:01 AM ??Length (cm): ??14.5 ??Width (cm): ??11 ??Depth (cm): ??0.1 ??Percent Debrided (%): ??12 ??Surface Area (cm^2): ??159.5 ??Area Debrided (cm^2): ??19.14 ??Volume (cm^3): ??15.95 ??Tissue and other material debrided: hypergranulation ?Devitalized tissue debrided: biofilm, fibrin, necrotic debris and slough ??Instrument: ??Other ??Other instrument: ??Gauze swab ??Amount of bleeding: small ?Hemostasis obtained with: ??Pressure ??Procedural pain: ??0 ??Post-procedural pain: ??0 ??Response to treatment: ??Procedure was tolerated well Catarina JUAN IN CLINIC/BEDSIDE ORDERABLES * Debridement Venous Ulcer Left Pretibial (04/06/2024 3:15 PM EST) Narrative Sukhjinder Trotter MD - 04/06/2024 3:15 PM EST Sukhjinder Trotter MD ? 04/06/2024 ??3:51 PM Debridement Venous Ulcer Left Pretibial Performed by: Sukhjinder Trotter MD Authorized by: Sukhjinder Trotter MD ?? Associated wounds: Wound Venous Ulcer 04/06/24 Pretibial Left Consent: ??Consent obtained: ??Verbal and written ??Consent given by: ??Patient ??Risks discussed: Yes ?? Time out: Immediately prior to the procedure a time out was called ?? Time out performed at: ??04/06/2024 3:39 PM Debridement Details: ??Performed by: ??Physician ??Type: mechanical ?Pain control: ??Lidocaine 4% ??Pain control administration: topical anesthesia ?Severity of Tissue Pre Debridement: ??Limited to breakdown of skin ??Severity of Tissue Post Debridement: ??Limited to breakdown of skin ??Time taken: ??04/06/2024 3:02 PM ??Length (cm): ??26 ??Width (cm): ??14 ??Depth (cm): ??0.1 ??Area (cm^2): ??364 ??Time taken: ??04/06/2024 3:03 PM ??Length (cm): ??26 ??Width (cm): ??14 ??Depth (cm): ??0.1 ??Percent Debrided (%): ??10 ??Surface Area (cm^2): ??364 ??Area Debrided (cm^2): ??36.4 ??Volume (cm^3): ??36.4 ??Tissue and other material debrided: epidermis ?Devitalized tissue debrided: clots ?Instrument: ??Curette ??Amount of bleeding: small ?Hemostasis obtained with: ??Pressure ??Procedural pain: ??2 ??Post-procedural pain: ??0 ??Response to treatment: ??Procedure was tolerated well Sukhjinder Trotter MD IN CLINIC/BEDSIDE OR DERABLES from Last 3 Months Additional Health Concerns Active Problems Noted Date Diagnosed Date Impaired Tissue 04/06/2024 Education needed on impact of smoking on wound 1 06/06/2023 Education needed related to ulceration/compromised skin integrity. 04/06/2024 Care Teams Procedural Nurse Relationship Specialty Start Date End Date Alton Lovelace MD [address] [place] [phone] PCP - General Internal Medicine 07/20/15
== END 2024-06-29 13:57 | disposition home or self-care (01) ==
PROVIDERS: PCP Internal Medicine; Referring Provider Internal Medicine; Visit Provider Internal Medicine Hypertension Specialist
DX: N18.9 Chronic kidney disease, unspecified (principal)
CPT/HCPCS: 99204

== ENCOUNTER → 2024-06-29 13:33 | Outpatient (BNVA) | payer MEDICARE, SELFPAY | PROVIDERS: PCP Internal Medicine; Referring Provider Internal Medicine; Visit Provider Internal Medicine Hypertension Specialist | DX: N18.9 Chronic kidney disease, unspecified (principal) | CPT/HCPCS: 99202 ==

== ENCOUNTER 2024-08-24 14:43 | Outpatient (AMB) | payer MEDICARE, SELFPAY ==
[2024-08-24 14:43] VITALS: BP 122/78; PULSE 98; O2SAT 92; BMI 38.8
--- NOTE | 2024-08-24 14:43 | HO.NEPHOV_ITS ---
Vital Signs 08/24/24 14:43 Height 6 ft Weight 286 lb BMI 38.8 BP 122/78 Blood Pressure Location Lt brachial Position Sitting Pulse 98 Pulse Source Pulse Oximeter Pulse Oximetry (%) 92 Oxygen Delivery Method Room Air Intake Visit Reasons: 6 week follow up/ Conf Heavy Equipment Operator Required: No Accompanied by: Spouse Allergies adhesive tape Allergy (Unknown, Verified 08/24/24 14:47) Hives furosemide Allergy (Unknown, Verified 08/24/24 14:47) Hives onion Allergy (Unknown, Verified 08/24/24 14:47) Hives Medication List - Last Reconciled 08/24/24 by Blake Craig MD albuterol sulfate 90 mcg/actuation 2 inhalations inhalation Q4-6H PRN ascorbic acid (vitamin C) 500 mg PO DAILY aspirin 81 mg PO DAILY benzonatate mg PO DAILY PRN bumetanide 1 mg PO DAILY digoxin 125 mcg PO DAILY diltiazem HCl CD 120 mg PO DAILY vistkppmtdv-adggiozcs-decbzkft 100-62.5-25 mcg (Trelegy Ellipta) 1 ea inhalation DAILY glucosamine sulfate (Glucosamine) 500 mg PO DAILY magnesium oxide 500 mg PO DAILY melatonin 5 mg PO PRN metoprolol tartrate 25 mg PO BID mupirocin calcium 2% appl topical rivaroxaban (Xarelto) 20 mg PO DAILY silver sulfadiazine 1% (SSD) appl topical spironolactone 25 mg PO DAILY zinc acetate (Galzin) 50 mg PO DAILY HPI Comments Details: 84-year-old man with a history of longstanding hypertension congestive heart failure and COPD has been referred for evaluation of chronic kidney disease. Serum creatinine has been staying between 1.4 and 1.6 mg/dL. He was hospitalized at [facility] for COPD. He was on high dose of diuretics which was lowered due to low blood pressure. He also has a history of abdominal aortic aneurysm measuring 4.4 cm. He was seen by vascular surgery. History of chronic venous insufficiency with stasis dermatitis. He is currently being treated by the wound clinic Today was accompanied by his . Jose has history of chronic smoked for several years. He says he still smokes 1 or 2 cigarettes a day. Interestingly he says that he is able to breathe better when he smokes.!! No urinary symptoms like dysuria urgency increased frequency. He has shortness of breath on exertion no chest pain. No nausea or vomiting. 08/24/24 Gained 6 lbs Bumex was doubled for a week. Work in progress for dyspnea including pulm evaluation Still smokes. 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 Right bundle branch block (RBBB) Atrial fibrillation DVT (deep venous thrombosis) Emphysema lung Mixed hyperlipidemia Essential hypertension Secondary hypercoagulable state Chronic systolic (congestive) heart failure 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 Diabetic foot ulcers Non-pressure chronic ulcer of skin of other sites with unspecified severity Chronic kidney disease, stage 2 (mild) Surgical History History of knee surgery (~2013) History of hernia repair Physical Exam Vital Signs: Last Vital Signs Pulse 98 08/24/24 14:43 BP 122/78 08/24/24 14:43 Pulse Ox 92 08/24/24 14:43 Oxygen Delivery Method Room Air 08/24/24 14:43 BMI result Body Mass Index 38.8 Results Reviewed Results Reviewed: Cr 2.0 Hgb 13 UA: no RBC or protein Nephrology Results: No Data to Display Assessment & Plan Assessment & Plan (1) CKD (chronic kidney disease): Code(s): N18.9 - Chronic kidney disease, unspecified Category: Medical Plan Elderly man with a history of longstanding COPD hypertension and congestive heart failure has stage 3 chronic kidney disease. 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 Bump in creatinine due to hypoperfusion. Recent urine sediments were bland therefore glomerular nephritis or interstitial disease seem unlikely. Recommendations Low-sodium diet Continue current dose of diuretics. Continue to avoid nephrotoxic agents including NSAIDs. Optimize blood pressure and continue to avoid hypotension. workup for CKD renal ultrasonogram- No hydronephrosis. . Orders: Orders Basic Metabolic Panel 6 Weeks N18.9 - Chronic kidney disease, unspecified Coding Level of Care Code Est Pt Level 4 (42693) Diagnoses CKD (chronic kidney disease) N18.9
--- OUTSIDE RECORDS SUMMARY | 2024-08-24 17:40 | XMS_ITS | Encounter Summary ---
Author Organization [facility] Address [address] [place] [address] Care Team Providers Care Design Supervisor Name Role Phone Alton Lovelace MD Primary Care Provider [phone] Reason for Referral * Therapy (Routine) - Closed Specialty Diagnoses / Procedures Referred By Contac t Referred To Contact Pulmonology Diagnoses Pulmonary emphysema, unspecified emphysema type (CMS/HCC) Procedures Pulmonary function testing: Carbon Monoxide Diffusing Capacity, Maximum Voluntary Ventilation, Plethysmography, Spirometry with Bronchodilator Rigoberto Klein MD [address] [place] [address] Phone: tel: fax: [facility] [address] [place] [address] Phone: tel: Referral ID Status Reason Start Date Expiration Date Visits Re quested Visits Authorized [id number] Closed 08/03/2024 08/03/2025 1 1 Reason for Visit * Therapy (Routine) - Closed Specialty Diagnoses / Procedures Referred By Contac t Referred To Contact Pulmonology Diagnoses Pulmonary emphysema, unspecified emphysema type (CMS/HCC) Procedures Pulmonary function testing: Carbon Monoxide Diffusing Capacity, Maximum Voluntary Ventilation, Plethysmography, Spirometry with Bronchodilator Rigoberto Klein MD [address] [place] [address] Phone: tel: fax: [facility] [address] [place] [address] Phone: tel: Referral ID Status Reason Start Date Expiration Date Visits Re quested Visits Authorized [id number] Closed 08/03/2024 08/03/2025 1 1 Encounter Details Date Type Department Care Team (Latest Contact Info) Description 08/11/2024 1:59 PM EDT - 08/11/2024 11:59 PM EDT Hospital Encounter [facility] [address] [place] [phone] Pulmonary emphysema, unspecified emphysema type (CMS/HCC) Discharge Disposition: Home or Self Care Social History Tobacco Use Types Packs/Day Years Used Date Smoking Tobacco: Every Day Cigarettes Smokeless Tobacco: Never Alcohol Use Standard Drinks/Week Comments No 0 (1 standard drink = 0.6 oz pur e alcohol) Sex and Gender Information Value Date Recorded Sex Assigned at Male 08/10/2024 12:29 PM EDT Legal Sex Male 2:24 PM EST Gender Identity Male 08/10/2024 12:29 PM EDT Sexual Orientation Straight 08/10/2024 12 :29 PM EDT documented as of this encounter Medications at Time of Discharge albuterol HFA (PROAIR HFA ; PROVENTIL HFA ; VENTOLIN HFA) 90 mcg/actuation inhaler Inhale 2 puffs into the lungs 4 (four) times a day. 02/26/2021 ascorbic acid (VITAMIN C) 250 mg tablet Take 500 mg by mouth daily. aspirin 81 mg EC tablet Take 81 mg by mouth daily. betamethasone dipropionate (DIPROSONE) 0.05 % cream APPLY TO PROBLEM AREAS TWICE DAILY NO LONGER THAN 2 WEEKS THEN DAILY NEEDED 08/14/2023 bumetanide (BUMEX) 1 mg tablet Take 1 tablet (1 mg total) by mouth daily. 01/05/2024 digoxin (LANOXIN) 125 mcg (0.125 mg) tablet Take 1 tablet (125 mcg total) by mouth daily. 08/18/2023 fluticasone-umecli dinium-vilanterol (Trelegy Ellipta) 200-62.5-25 mcg inhaler Take 1 puff by mouth daily. 02/26/2021 furosemide (LASIX) 20 mg tablet Take 1 tablet (20 mg total) by mouth daily. 04/07/2022 furosemide (LASIX) 40 mg tablet Take 1 tablet (40 mg total) by mouth daily. 04/21/2022 glucosamine/chondr o major A/C/Mn (GLUCOSAMINE-CHOND ROIT-VIT C-MN ORAL) Take by mouth. lidocaine (XYLOCAINE) 4 % external solution Apply topically 1 (one) time each day. 100 mL 1 06/21/2024 magnesium oxide (MAG-OX) 400 mg (241.3 elemental magnesium) tablet Take 1 tablet (400 mg total) by mouth daily. metoprolol tartrate (LOPRESSOR) 50 mg tablet TAKE 1 TABLET BY MOUTH TWICE DAILY 01/13/2022 rivaroxaban (XARELTO) 20 mg tablet Take 1 tablet (20 mg total) by mouth every evening. 01/27/2021 spironolactone (ALDACTONE) 25 mg tablet Take 0.5 tablets (12.5 mg total) by mouth daily. 04/21/2022 timolol (TIMOPTIC) 0.5 % ophthalmic solution MIX WITH MUPIROCIN OINTMENT AND SILVADENE CREAM AND APPLY MIXTURE TWICE DAILY TO LEG WOUNDS 10/17/2023 zinc sulfate (ZINCATE) 220 mg (50 mg elemental zinc) capsule Take 1 capsule (220 mg total) by mouth daily. documented as of this encounter Discharge Disposition Disposition Code Departure Means Destination Home or Self Care documented in this encounter Procedure Notes * Rigoberto Klein MD - 08/11/2024 2:00 PM EDT Jose Gonzáles : 1940 Date of Study: August 11, 2024 Pulmonary Function Test 1) Spirometry: Spirometry results in the shape of the flow-volume loop are consistent with moderately severe obstructive lung disease. The response to bronchodilators was not considered significant this does not preclude their use. 2) Lung Volumes: Lung volume results show a decreased total lung capacity consistent with restrictive disease mild in degree of severity. 3) Diffusion: Diffusion is decreased but corrects for alveolar volume. Interpretation: Moderately severe obstructive lung disease. Comments: 1. Obstructive lung disease with decreased diffusion is seen in emphysema clinical correlation suggested. 2. Obesity can cause restrictive disease clinical correlation suggested. Rigoberto Klein MD 08/13/2024 10:48 AM EDT documented in this encounter Plan of Treatment Pending Results Name Type Priority Associated Diagnoses Date /Time Pulmonary function testing: Carbon Monoxide Diffusing Capacity, Maximum Voluntary Ventilation, Plethysmography, Spirometry with Bronchodilator PFT Routine Pulmonary emphysema, unspecified emphysema type (CMS/HCC) 08/11/2024 2:53 PM EDT Scheduled Orders Name Type Priority Associated Diagnoses Orde r Schedule Pulmonary function testing: Carbon Monoxide Diffusing Capacity, Maximum Voluntary Ventilation, Plethysmography, Spirometry with Bronchodilator PFT Routine Pulmonary emphysema, unspecified emphysema type (CMS/HCC) Once for 1 Occurrences starting 08/11/2024 until 08/11/2024 documented as of this encounter Goals Goal Patient Goal Type Associated Problems Recent Progress Patient-Stated? Author Decrease Wound Volume by X% by date (in notes) Care Plan Impaired Tissue No Luca Rivas RN Patient and Caregiver Understand Wound Care Education Care Plan Impaired Tissue No Luca Rivas RN Wound volume breakdown reduced by X% by week 4 Care Plan Impaired Tissue No Luca Rivas RN Wound volume breakdown reduced by X% by week 8 Care Plan Impaired Tissue No Luca Rivas RN Wound volume breakdown reduced by X% [...] as of this encounter Visit Diagnoses Diagnosis Pulmonary emphysema, unspecified emphysema type (CMS/HCC) documented in this encounter Orders Medications Ordered That Garret ht Not Have Been Administered Count Last Ordered Date First Ordered Date albuterol 2.5 mg /3 mL (0.08 3 %) nebulizer solution - ADS Override Pull 1 08/11/2024 documented in this encounter Additional Health Concerns Active Problems Noted Date Diagnosed Date Impaired Tissue 04/06/2024 Education needed on impact of smoking on wound 1 06/06/2023 Education needed related to ulceration/compromised skin integrity. 04/06/2024 documented as of this encounter Care Teams Design Supervisor Relationship Specialty Start Date End Date Alton Lovelace MD [address] [place] [phone] PCP - General Internal Medicine 07/20/15 documented as of this encounter
--- OUTSIDE RECORDS SUMMARY | 2024-08-24 17:40 | XMS_ITS | Encounter Summary ---
Author Organization [address] Address [address] [place] [address] Care Team Providers Care Ammonium Hydroxide Operator Name Role Phone Alton Lovelace MD Primary Care Provider [phone] Reason for Visit * Reason Comments Wound Care Encounter Details Date Type Department Care Team (Late st Contact Info) Description 08/01/2024 2:30 PM EST Office Visit [facility] [place] [address] [facility] [address] [place] [id number] Horace Beaver, NAHID [address] [place] [address] Open wound of left lower leg, subsequent encounter (Primary Dx) Social History Tobacco Use Types Packs/Day Years [...] PM EDT documented as of this encounter Progress Notes * Fiona Mccarty RN - 08/01/2024 2:30 PM EST PHYSICIAN ORDERS and applied as treatment in wound care center at today's visit Date of 1940 Go to ER if present with fever, shaking, chills, increased redness, or excess drainage. If you have any questions or concerns, please contact the wound center at Dept: [phone] Additional tests ordered today: NA Edema Control: Patient declines lymphedema pumps as option. Patient states vascular doctor checking for possible AAA and following up. Patient educated to wear compression from back of knee to toes and to wear daily. Educated to elevate legs daily. Positive pedal pulses bilaterally. Bilateral feet warm to touch with less than 3 second capillary refill. Compression/Edema control: Medium Compression-Spandagrip (10-20 mmHg)Apply first thing in the morning, may remove at bedtime, unless otherwise directed. Avoid prolonged standing in one place for extended periods of time. Elevate leg(s) above level of heart when seated. Tubi F Hand Hygiene: (W)codi hands before and after wound care. Call Wound Center at Dept: [phone] you have signs and symptoms of infection such as fever, chills, unusual or increased drainage, increasing odor, or unusual redness. WOUND #1 (Left leg) every other day (frequency of dressing changes) Wound Cleansing & Dressings: TRIAD to periwound, adaptic, calcium alginate, abd, gauze rolled gauze WOUND #2 (Right leg) Wound Cleansing & Dressings: TRIAD to periwound, adaptic, calcium alginate, abd, gauze rolled gauze Education provided at today visit smoking cessation reinforcement needed Diet: Continue good nutritional intake * Horace Beaver DPM - 08/01/2024 2:30 PM EST Images from the original note were not included. Office Visit Visit Date: 08/01/2024 Patient Name: Jose Gonzáles Date of : 1940 PCP: Alton Lovelace MD HPI: HPI 84 year old male seen for follow-up of BLE wounds. No new complaints. Past Medical History: Diagnosis Date Abnormal ECG DX:Abnormal ECG Atrial fibrillation (CMS/HCC) DX:Atrial fibrillation (HCC) Bilateral leg edema DX:Bilateral leg edema Cataract DX:Cataract DVT (deep venous thrombosis) (CMS/HCC) DX:DVT (deep venous thrombosis) ([facility]) History of cardiac catheterization 2011 DX:History of [...] inflammation of right lower extremity (CMS/HCC) Lymphedema Current Outpatient Medications [...] tablet (125 mcg total) by mouth daily. idyeidfvlwq-ztmxwrzqzrvb-enlfkczpxn (Trelegy Ellipta) 200-62.5-25 mcg inhaler Take 1 puff by mouth daily. furosemide (LASIX) 20 mg tablet Take 1 tablet (20 mg total) by mouth daily. furosemide (LASIX) 40 mg tablet Take 1 tablet (40 mg total) by mouth daily. glucosamine/chondro major A/C/Mn (VDFCTPZOHMH-GJRNYEWFO-NNK C-MN ORAL) Take by mouth. hydrOXYzine pamoate (VistariL) 25 mg capsule Take 1 capsule (25 mg total) by mouth 3 (three) times a day if needed for itching for up to 10 days. 30 capsule 0 lidocaine (XYLOCAINE) 4 % external solution Apply topically 1 (one) time each day. 100 mL 1 magnesium oxide (MAG-OX) 400 mg (241.3 elemental [...] prior to visit. ROS Review of Systems Vital Signs: Visit Vitals Smoking Status Every Day PHYSICAL EXAM Physical Exam Palpable DP pulses. BLE edema. Serosanguinous drainage. No evidence of acute infection. WOUND ASSESSMENT If photograph of wound not visible on this note, please check under Media tab. Wound Venous Ulcer 04/06/24 Pretibial Left (Active) Wound Image 07/19/24 1450 Wound Bed Tissue Assessment Red 06/21/24 1200 [place]-Wound Assessment Intact 07/01/24 1300 Shape Irregular 07/01/24 1300 Wound Length (cm) 12 cm 08/01/24 1400 Wound Width (cm) 10 cm 08/01/24 1400 Wound Surface Area (cm^2) 120 cm^2 08/01/24 1400 Wound Depth (cm) 0.1 cm 08/01/24 1400 Wound Volume (cm^3) 12 cm^3 08/01/24 1400 Wound Healing % 67 08/01/24 1400 Drainage Description Serous 08/01/24 1400 Drainage Amount Moderate 08/01/24 1400 Treatments Site care;Cleansed 06/21/24 1200 Dressing Changed Changed 08/01/24 1400 Dressing Status Old drainage 06/21/24 1200 Wound Bed Granulation (%) 100 % 08/01/24 1400 Wound Bed Slough (%) 0 % 07/01/24 1300 Wound Bed Eschar (%) 25 % 04/20/24 1100 Tunneling 0 cm 07/01/24 1300 Undermining 0 cm 07/01/24 1300 Edges Well-defined edges 07/01/24 1300 Wound Venous Ulcer 06/21/24 Ankle Right;Medial (Active) Wound Image 07/19/24 1452 Ana Rosa-Wound Assessment Intact 07/01/24 1300 Shape Irregular 07/01/24 1300 Wound Length (cm) 2 cm 08/01/24 1400 Wound Width (cm) 2.3 cm 08/01/24 1400 Wound Surface Area (cm^2) 4.6 cm^2 08/01/24 1400 Wound Depth (cm) 0.1 cm 08/01/24 1400 Wound Volume (cm^3) 0.46 cm^3 08/01/24 1400 Wound Healing % -17 08/01/24 1400 Drainage Description Serous 07/01/24 1300 Drainage Amount Large 07/19/24 1400 Treatments Cleansed;Site care 07/19/24 1400 Wound Bed Granulation (%) 100 % 08/01/24 1400 Wound Bed Slough (%) 0 % 07/19/24 1400 Edges Attached edges 07/01/24 1300 Pertinent Labs: Albumin Date Value Ref Range Status 05/13/2024 4.0 3.5 - 5.0 g/dL Final WBC Date Value Ref Range Status 08/01/2024 11.8 (H) 4.0 - 10.5 K/mcL Final Hemoglobin A1C Date Value Ref Range Status 05/13/2024 6.1 (H) <5.7 % Final Debridement Note: Procedures Debridement Progress Note addendum: -Healing goal is a reduction in wound volume of 30% at 4 weeks, 50% at 8 weeks, 75% at 12 weeks, and 100% at 16 weeks. Will continually reassess and adjust the treatment strategy if not on the healing curve. -I have asked the patient to see [...] for increased protein to aid wound healing. -It is also recommended that the patient work with their PCP to optimize metabolic status and glycemic control. PLAN OF CARE 1. Open wound of left lower leg, subsequent encounter Wound Care Supplies Provider Orders: Patient Instructions PHYSICIAN ORDERS and applied as treatment in wound care center at today's visit Date of 1940 Go to ER if present with fever, shaking, chills, increased redness, or excess drainage. If you have any questions or concerns, please contact the wound center at Dept: [phone] Additional tests ordered today: NA Edema Control: Patient declines lymphedema pumps as option. Patient states vascular doctor checking for possible AAA and following up. Patient educated to wear compression from back of knee to toes and to wear daily. Educated to elevate legs daily. Positive pedal pulses bilaterally. Bilateral feet warm to touch with less than 3 second capillary refill. Compression/Edema control: Medium Compression-Spandagrip (10-20 mmHg)Apply first thing in the morning, may remove at bedtime, unless otherwise directed. Avoid prolonged standing in one place for extended periods of time. Elevate leg(s) above level of heart when seated. Tubi F Hand Hygiene: (W)codi hands before and after wound care. Call Wound Center at Dept: [phone] you have signs and symptoms of infection such as fever, chills, unusual or increased drainage, increasing odor, or unusual redness. WOUND #1 (Left leg) every other day (frequency of dressing changes) Wound Cleansing & Dressings: TRIAD to periwound, adaptic, calcium alginate, abd, gauze rolled gauze WOUND #2 (Right leg) Wound Cleansing & Dressings: TRIAD to periwound, adaptic, calcium alginate, abd, gauze rolled gauze Education provided at today visit smoking cessation reinforcement needed Diet: Continue good nutritional intake Goals for the wound(s): Expected frequency of encounters: Anticipated duration of treatment: Potential to heal: Plan: Same POC. Return 1 week. All questions were answered to his satisfaction. [...] Follow up in about 1 week (around 08/08/2024), or if symptoms worsen or fail to improve. 08/01/2024 4:11 PM EST Horace Beaver DPM documented in this encounter Plan of Treatment Not on file documented as of this encounter Goals Goal [...] week 8 Care Plan Impaired Tissue Luca Urias RN [...] as of this encounter Visit Diagnoses Diagnosis Open wound of left lower leg, subsequent encounter- Primary documented in this encounter Orders General Supply Count Last Ordered Date First Or dered Date WOUND CARE SUPPLIES 1 08/01/2024 documented in this encounter Additional Health Concerns Active Problems Noted Date Diagnosed Date Impaired Tissue 04/06/2024 Education needed on impact of smoking on wound 1 06/06/2023 Education needed related to ulceration/compromised skin integrity. 04/06/2024 documented as of this encounter Care Teams Ammonium Hydroxide Operator Relationship Specialty Start Date End Date Alton Lovelace MD [address] [place] [address] PCP - General Internal Medicine 07/20/15 documented as of this encounter
--- OUTSIDE RECORDS SUMMARY | 2024-08-24 17:40 | XMS_ITS | Encounter Summary ---
Author Organization Formerly [facility] Address [address] [place] [address] Care Team Providers Care Shift Supervisor Melting Name Role Phone Alton Lovelace MD Unavailable [phone] Alton Lovelace MD Primary Care Provider Eric Barth MD Unavailable [phone] Encounter Details Date Type Department Care Team (Late st Contact Info) Description 03/07/2024 Telephone [facility] [address] [address] Eric Barth MD [address] [place] [address] Social History Tobacco Use Types Packs/Day Years [...] Care Team (Late st Contact Info) Description 10/06/2024 11:00 AM EDT Appointment [facility] [address] [phone] Eric Barth MD 7 [facility] [address] [place] [address] 11/22/2024 1:00 PM EDT Office Visit formerly [facility] [place] 7 [facility] [address] [place] [phone] Eric Barth MD 7 [facility] [address] [place] [address] documented as of this encounter Visit Diagnoses Not on filedocumented in this encounter Additional Health Concerns Infection Onset Date Last Indicated Resolved Time R/O Respiratory Disease 03/12/2024 03/12/202403/01 11:42 PM EDT documented as of this encounter Care Teams Shift Supervisor Melting Relationship Specialty Start Date End Date Alton Lovelace MD [address] [place] [address] PCP - APNCT [employer] Attributed 06/01/22 Alton Lovelace MD [address] [place] [address] PCP - General Internal Medicine 12/16/23 Eric Barth MD [facility] [place] [address] Primary Manager Materials Management Cardiovascular Disease 12/24/23 documented as of this encounter
--- OUTSIDE RECORDS SUMMARY | 2024-08-24 17:41 | XMS_ITS | Clinical Summary ---
Author Organization [facility] Address [address] [place] [address] Care Team Providers Care Deposition Operator Name Role Phone Alton Lovelace MD Primary Care Provider Allergies Active Allergy Reactions Criticality Noted Date [...] this topic Medical Devices Implanted Type Area Junior Underwriter Device Identifier Shelf Expiration Date Model / Serial / Lot Lens Acrysof Iq Natrl 0d +22.5d L 13mm 6mm Acrylic 118.7 A - [id number] - [id number] Implanted:Qty: 1 on 11/10/2018 by Rashard Villalobos MD at [facility] Location Left: Eye [employer] 09/28/2022 [id number] / [id number] / Lens Acrysof 0d +23d L 13mm 6mm Acrylic 118.7 A - [id number] - [id number] Implanted:Qty: 1 on 11/16/2018 by Rashard Villalobos MD at [facility] Location Right: Eye [employer] 05/31/2022 [id number] / [id number] / Advance Directives For more information, please contact: [phone] Documents on File Type Date Recorded Patient Cider Maker Expl anation Advance Directive and Living Will [...] the following way: Discussed . Care Teams Deposition Operator Relationship Specialty Start Date End Date Alton Lovelace MD [address] [place] [address] PCP - General Internal Medicine 07/20/15
--- OUTSIDE RECORDS SUMMARY | 2024-08-24 17:41 | XMS_ITS | Encounter Summary ---
Author Organization [facility] Address [address] [place] [address] Care Team Providers Care Bottom Wheeler Name Role Phone Alton Lovelace MD Unavailable [phone] Alton Lovelace MD Primary Care Provider Eric Barth MD Unavailable [phone] Encounter Details Date Type Department Care Team (Late st Contact Info) Description 12/16/2023 Scanned Document [facility] [address] [address] Primary Care, Scan Social History [...] Info) Description 10/06/2024 11:00 AM EDT Appointment [facility] [address] [address] Eric Barth MD [address] [place] [address] 11/22/2024 1:00 PM EDT Office Visit [facility] [place] 7 [facility] [address] [place] [phone] Eric Barth MD 7 [facility] [address] [place] [address] documented as of this encounter Visit Diagnoses Not on filedocumented in this encounter Additional Health Concerns Infection Onset Date Last Indicated Resolved Time R/O Respiratory Disease 03/12/2024 03/12/202403/01 11:42 PM EDT documented as of this encounter Care Teams Bottom Wheeler Relationship Specialty Start Date End Date Alton Lovelace MD [address] [place] [address] PCP - APNCT [employer] Attributed 06/01/22 Alton Lovelace MD [address] [place] [address] PCP - General Internal Medicine 12/16/23 Eric Barth MD [address] [place] [address] Primary Train Director Cardiovascular Disease 12/24/23 documented as of this encounter
--- OUTSIDE RECORDS SUMMARY | 2024-08-24 17:41 | XMS_ITS | Clinical Summary ---
Author Organization [facility] Address [address] [place] [address] Care Team Providers Care Hub Borer Name Role Phone Alton Lovelace MD Unavailable [phone] Alton Lovelace MD Primary Care Provider Eric Barth MD Unavailable [phone] Allergies Active Allergy Reactions Criticality Noted Date Comments Adhesives/Tape Rash/Dermatitis Low 11/05/2018 Paper tape okay Furosemide Hives,Itching Medium 06/02/2023 Onion Nausea And Vomiting Low 11/05/2018 Medications Medication Sig Dispensed Refills Start Date End Date Status albuterol (PROVENTIL HFA; VENTOLIN HFA) 108 (90 Base) MCG/ACT inhaler Inhale 2 puffs 4 (four) times a day. 4 Active ascorbic acid 250 MG tablet Take 2 tablets (500 mg total) by mouth. Active aspirin enteric coated (ECOTRIN LOW STRENGTH) 81 MG EC tablet Take 1 tablet (81 mg total) by mouth daily. Active Xarelto 20 MG tablet 4 Active SSD 1 % cream 2 times a day. 4 Active magnesium oxide (MAG-OX) 400 MG tablet Take 1 tablet (400 mg total) by mouth daily. Active fluticasone-umecl idinium-vilantero l (TRELEGY ELLIPTA) 200-62.5-25 mcg/act inhaler Inhale 1 puff daily. 4 Active clobetasol (TEMOVATE) 0.05 % ointment APPLY TO RASH TWICE DAILY FOR 10 DAYS THEN HOLD ONE WEEK. MAY REPEAT NEEDED 4 Active bumetanide (BUMEX) 1 MG tabletIndications :SOB (shortness of breath) Take 1 tablet (1 mg total) by mouth daily. 90 tablet 3 4 Active spironolactone (ALDACTONE) 25 MG tabletIndications :SOB (shortness of breath) Take 1 tablet (25 mg total) by mouth daily. 100 tablet 3 4 Active diltiazem (CARDIZEM CD) 120 MG 24 hr capsuleIndication s:SOB (shortness of breath) Take 1 capsule (120 mg total) by mouth daily. 90 capsule 3 5 Active timolol (TIMOPTIC) 0.5 % ophthalmic solution MIX WITH MUPIROCIN OINTMENT AND SILVADENE CREAM AND APPLY MIXTURE TWICE DAILY TO LEG WOUNDS 4 08/23/19 25 Discontinued(Med List Clean-up/Old Med - No E-Cancel/No AVS) melatonin 5 MG Cap capsule Take 2 capsules (10 mg total) by mouth nightly. 08/23/19 25 Discontinued(Med List Clean-up/Old Med - No E-Cancel/No AVS) digoxin 0.125 mg tablet Take 1 tablet (125 mcg total) by mouth daily. 4 08/23/19 25 Discontinued acetaminophen (TYLENOL) 325 MG tabletIndications :COPD exacerbation (HCC) Take 2 tablets (650 mg total) by mouth 4 times daily (every 6 hours) as needed for moderate pain or headaches. 4 08/23/19 25 Discontinued benzonatate (TESSALON) 100 MG capsuleIndication s:COPD exacerbation (HCC) Take 1 capsule (100 mg total) by mouth 3 (three) times a day as needed for cough. 20 capsule 4 08/23/19 25 Discontinued guaiFENesin (MUCINEX) 600 MG 12 hr tabletIndications :COPD exacerbation (HCC) Take 1 tablet (600 mg total) by mouth 2 (two) times a day. 4 08/23/19 25 Discontinued metoPROLOL TARTRATE (LOPRESSOR) 25 MG tabletIndications :Atrial fibrillation, unspecified type (HCC) Take 1 tablet (25 mg total) by mouth 2 times a day. 4 08/23/19 25 Discontinued predniSONE (DELTASONE) 10 MG tabletIndications :COPD exacerbation (HCC) Take 40 mg (= 4 tablets) by mouth daily for 2 days, then 30 mg (= 3 tablets) daily for 2 days, then 20 mg (= 2 tablets) daily for 2 days, then 10 mg (= 1 tablet) daily for 2 days. Take with food. 20 tablet 08/23/19 25 Discontinued(Med List Clean-up/Old Med - No E-Cancel/No AVS) Active Problems Problem Noted Date Diagnosed Date COPD exacerbation 03/12/2024 Acute hypoxic respiratory failure 03/12/2024 Lactic acidosis 03/12/2024 Cellulitis 03/12/2024 Resolved Problems Problem Noted Date Diagnosed Date Resolved Date Sepsis 03/12/2024 04/27/2024 Encounters Date Type Department Care Team Description 08/22/2024 11:20 AM EDT Office Visit [facility] [address] [address] Eric Barth MD SOB (shortness of breath) (Primary Dx) 08/22/[address] [phone] Eric Barth MD 08/22/2024 Travel 07/01/[address] [address] Eric Barth MD from Last 3 Months Social History Tobacco Use Types Packs/Day Years Used Date Smoking Tobacco: Some Days Cigarettes Smokeless Tobacco: Never Tobacco Cessation:Ready to Q uit: Not Asked; Counseling Given: Not Answered Alcohol Use Standard Drinks/Week Comments Never 0 (1 standard drink = 0.6 oz pur e alcohol) [facility] Utilities Answer Date Recorded In the past 12 months has [employer] gas, oil, or water [facility] threatened to shut off services in your [...] place to sleep or slept in a senior care (including now)? No 03/14/2024 Sex and Gender Information Value Date Recorded Sex Assigned at Male 12/16/2023 1:08 PM EDT Gender Identity Male 12/16/2023 1:08 PM EDT Sexual Orientation Heterosexual (straight) 12/15 1:08 PM EDT Last Filed Vital Signs Vital Sign Reading Time Taken Comments Blood Pressure 116/70 08/22/2024 11:28 AM EDT Pulse 83 08/22/2024 11:28 AM EDT Temperature 35.8 ??C (96.4 ??F) 03/14/2024 5:30 AM ED T Respiratory Rate 18 03/14/2024 5:30 AM EDT Oxygen Saturation 96% 08/22/2024 11:28 AM EDT Inhaled Oxygen Concentration - - Weight 131 kg (288 lb 1.6 oz) 08/22/2024 11:28 A M EDT Height 182.9 cm (6') 08/22/2024 11:28 AM EDT Body Mass Index 39.07 08/22/2024 11:28 AM EDT Plan of Treatment Upcoming Encounters Date Type Department Care Team (Late st Contact Info) Description 10/06/2024 11:00 AM EDT Appointment [facility] [address] [phone] Eric Barth MD [address] [place] [address] 11/22/2024 1:00 PM EDT Office Visit [facility] [address] [phone] Eric Barth MD [address] [place] [id number] Health Maintenance Due Date Last Done Comments DTaP/Tdap/Td Vaccines (1 - Tdap) 1959 Pneumococcal Vaccines 50+ (1 of 2 - PCV) 1959 Zoster (Shingles) Vaccine (1 of 2) 1990 RSV Vaccine 60 years and older and Patients (1 - 1-dose 75+ series) 2015 Influenza Vaccine 12/31/2023 COVID-19 Vaccine ( season) 2024 04/11/2024, 02/21/2023, 05/28/2022, Additional history exists Hepatitis B Vaccines Aged Out No long er eligible based on patient's age to complete this topic Procedures Procedure Name Priority Date/Time Associated Diagnosis Comments ECG 12-LEAD Routine 08/22/2024 11:34 AM EDT SOB (shortness of breath) from Last 3 Months Results * ECG 12 lead (08/22/2024 11:34 AM EDT) Ventricular rate 83 BPM EKG [facility] QRS duration 148 ms EKG [facility] Q-T interval 384 ms EKG [facility] QTC calculation (Bazett) 451 ms EKG [facility] R axis 91 degrees EKG [facility] T axis 45 degrees EKG [facility] 08/22/2024 11:3 4 AM EDT Narrative EKG [facility] - 08/22/2024 11:45 AM EDT Atrial fibrillation with premature ventricular or aberrantly conducted complexes Right bundle branch block Abnormal ECG When compared with ECG of 26-Apr-2024 09:37, QRS axis Shifted right Minimal criteria for Inferior infarct are no longer Present Confirmed by MD Barth Usama ([id number]) on 08/22/2024 11:45:57 AM Procedure Note Eric Barth MD - 08/22/2024 Atrial fibrillation with premature ventricular or aberrantly conductedcomplexes Right bundle branch block Abnormal ECG When compared with ECG of 26-Apr-2024 09:37, QRS axis Shifted right Minimal criteria for Inferior infarct are no longer Present Confirmed by MD Barth Usama ([id number]) on 08/22/2024 11:45:57 AM Eric Suazo MD ECG ORDERABLES [facility] from Last 3 Months Advance Directives * Full Code (Latest Code Status on File) Date Activated Date Inactivated Comments 03/12/2024 8:07 AM Healthcare Agents on File Name Relationship Healthcare Agent Relationship Communication Holly Crapser Spouse 4. Next of Kin (Spouse, Adult Child, Parent, Adult Sibling, Grandparent) Care Teams Hub Borer Relationship Specialty Start Date End Date Alton Lovelace MD [address] [place] [address] PCP - APNCT [employer] Attributed 06/01/22 Alton Lovelace MD [address] [place] [address] PCP - General Internal Medicine 12/16/23 Eric Barth MD [address] [place] [address] Primary Field Service Rep Cardiovascular Disease 12/24/23
--- OUTSIDE RECORDS SUMMARY | 2024-08-24 17:41 | XMS_ITS | Clinical Summary ---
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 1 Active aspirin 81 mg EC tablet Take 81 mg by mouth daily. Active furosemide (LASIX) 20 mg tablet Take 1 tablet (20 mg total) by mouth daily. 2 Active furosemide (LASIX) 40 mg tablet Take 1 tablet (40 mg total) by mouth daily. 2 Active glucosamine/chond ro major A/C/Mn (GLUCOSAMINE-ELDON DROIT-VIT C-MN ORAL) Take by mouth. Activ e magnesium oxide (MAG-OX) 400 mg (241.3 elemental magnesium) tablet Take 1 tablet (400 mg total) by mouth daily. Active metoprolol tartrate (LOPRESSOR) 50 mg tablet TAKE 1 TABLET BY MOUTH TWICE DAILY 2 Active rivaroxaban (XARELTO) 20 mg tablet Take 1 tablet (20 mg total) by mouth every evening. 1 Active spironolactone (ALDACTONE) 25 mg tablet Take 0.5 tablets (12.5 mg total) by mouth daily. 2 Active fluticasone-umecl idinium-vilantero l (Trelegy Ellipta) 200-62.5-25 mcg inhaler Take 1 puff by mouth daily. 1 Active zinc sulfate (ZINCATE) 220 mg (50 mg elemental zinc) capsule Take 1 capsule (220 mg total) by mouth daily. Active ascorbic acid (VITAMIN C) 250 mg tablet Take 500 mg by mouth daily. Active betamethasone dipropionate (DIPROSONE) 0.05 % cream APPLY TO PROBLEM AREAS TWICE DAILY NO LONGER THAN 2 WEEKS THEN DAILY NEEDED 4 Active bumetanide (BUMEX) 1 mg tablet Take 1 tablet (1 mg total) by mouth daily. 4 Active digoxin (LANOXIN) 125 mcg (0.125 mg) tablet Take 1 tablet (125 mcg total) by mouth daily. 4 Active timolol (TIMOPTIC) 0.5 % ophthalmic solution MIX WITH MUPIROCIN OINTMENT AND SILVADENE CREAM AND APPLY MIXTURE TWICE DAILY TO LEG WOUNDS 4 Active hydrOXYzine pamoate (VistariL) 25 mg capsule Take 1 capsule (25 mg total) by mouth 3 (three) times a day if needed for itching for up to 10 days. 30 capsule 4 Active lidocaine (XYLOCAINE) 4 % external solution Apply topically 1 (one) time each day. 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 06/07/2024 Open wound of left [...] Encounters Date Type Department Care Team Description 08/11/2024 1:59 PM EDT - 08/11/2024 11:59 PM EDT Hospital Encounter [facility] [address] [place] [phone] Pulmonary emphysema, unspecified emphysema type (CMS/HCC) Discharge Disposition: Home or Self Care 08/01/2024 2:30 PM EST Office Visit [facility] [place] [address] [place] [phone] Horace Beaver DPM Open wound of left lower leg, subsequent encounter (Primary Dx) 07/19/2024 2:15 PM EST Office Visit [facility] [place] [address] [place] [address] Blossom Bradley, FAMILY SOCIOLOGIST 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 (CMS/HCC) (Primary Dx); 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 (CMS/HCC) 07/01/2024 2:00 PM EST Office Visit [facility] [place] [address] [place] [address] Catarina Jackson PA Open wound of left lower leg, subsequent encounter (Primary Dx); Bilateral leg edema; Lymphedema; 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 (CMS/HCC); 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, unspecified laterality (CMS/HCC) 06/21/2024 12:30 PM EST Office Visit [facility] [place] [address] [place] [phone] Blossom Bradley FAMILY SOCIOLOGIST 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 (CMS/HCC) (Primary Dx); 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 (CMS/HCC); Lymphedema 06/07/2024 12:30 PM EST Office Visit [facility] [place] [address] [place] [phone] Blossom Bradley, FAMILY SOCIOLOGIST 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 (CMS/HCC) (Primary Dx); 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 (CMS/HCC) from Last 3 Months Immunizations Name Administration Dates Next Due Moderna SARS-CoV-2 COVID-19, mRNA, LNP-S, preservative free 03/28/2021,08/06/2020,07/09/2020 Surgical History Surgery Date Site/Laterality Comments TOTAL KNEE ARTHROPLASTY Bilateral PROCEDURE:TOTAL KNEE ARTHROPLASTY HERNIA REPAIR Bilateral PROCEDURE:INGUINAL HERNIA REPAIR CATARACT EXTRACTION W/ INTRAOCULAR LENS IMPLANT 11/10/2018 Left PROCEDURE:CATARACT EXTRACTION W/ INTRAOCULAR LENS IMPLANT;COMMENT:Procedure: EXTRACTION CATARACT WITH IOL IMPLANT; Surgeon: Rashard Villalobos MD; Location: [facility]; Service: Ophthalmology; Laterality: Left; CATARACT EXTRACTION W/ INTRAOCULAR LENS IMPLANT 11/16/2018 Right PROCEDURE:CATARACT EXTRACTION W/ INTRAOCULAR LENS IMPLANT;COMMENT:Procedure: EXTRACTION CATARACT WITH IOL IMPLANT; Surgeon: Rashard Villalobos MD; Location: [facility]; Service: Ophthalmology; Laterality: Right; Medical History Medical History Date Comments Hypertension DX:Hypertension Abnormal ECG DX:Abnormal ECG Right bundle branch block DX:Rig ht bundle branch block History of cardiac catheterization 2011 DX:History of cardiac catheterization;COMMENT:No obstructive CAD Bilateral leg edema DX:Bilateral leg edema DVT (deep venous thrombosis) (CMS/HCC) DX:DVT (deep venous thrombosis) (HCC) Mixed hyperlipidemia DX:Mixed hy perlipidemia Cataract DX:Cataract Atrial fibrillation (CMS/HCC) DX :Atrial fibrillation (HCC) Family History Medical History Relation Name Comments [...] Orientation Straight 08/10/2024 12 :29 PM EDT Obstetrics History Last Filed Vital Signs Vital Sign Reading Time Taken Comments Blood Pressure 119/90 07/01/2024 1:48 PM EST Pulse 74 07/01/2024 1:48 PM EST Temperature 36.3 ??C (97.3 ??F) 07/01/2024 1:48 PM ES T Respiratory Rate 20 07/01/2024 1:48 PM EST Oxygen Saturation 96% 07/01/2024 1:48 PM EST Inhaled Oxygen Concentration - - Weight 125 kg (275 lb) 12/28/2023 9:06 AM EDT Height 182.9 cm (6') 12/28/2023 9:08 AM EDT Body Mass Index 37.3 12/28/2023 9:06 AM EDT Plan of Treatment Health Maintenance Due Date Last Done Comments DTaP,Tdap,and Td Vaccines (1 - Tdap) 1959 Pneumococcal Vaccine: 50+ Years (1 of 2 - PCV) 1959 Zoster Vaccines (1 of 2) 1990 RSV Immunization Patients 60+ Years Old (1 - 1-dose 75+ series) 2015 Depression Screening 04/30/2022 Medicare Annual Wellness Visit 04/30/2022 Social Influencers of Health Screening 04/30/2022 Influenza Vaccine (#1) 2024 Falls Risk Assessment 06/21/2025 06/21/2024 Hypertension/CHF/CAD Annual BMP Blood Test 08/01/2025 08/01/2024, 05/13/2024, 03/14/2024, Additional history exists Cholesterol Screening (Lipid Panel) 05/13/2029 05/13/2024, 06/09/2023, [...] patient's age to complete this topic Meningococcal B Vacine Aged Out No lo nger eligible based on patient's age to complete [...] omised skin integrity. No Luca Rivas RN Medical Devices Implanted Type Area City Magistrate Device Identifier Shelf Expiration Date Model / Serial / Lot Lens Acrysof Iq Natrl 0d +22.5d L 13mm 6mm Acrylic 118.7 A - [id number] - [id number] Implanted:Qty: 1 on 11/10/2018 by Rashard Villalobos MD Left: Eye BRIDGER 09/28/2022 [id number] / [id number] / Lens Acrysof 0d +23d L 13mm 6mm Acrylic 118.7 A - [id number] - [id number] Implanted:Qty: 1 on 11/16/2018 by Rashard Villalobos MD Right: Eye BRIDGER 05/31/2022 [id number] / [id number] / Procedures Procedure Name Priority Date/Time Associated Diagnosis Comments URINALYSIS WITH REFLEX MICROSCOPIC Routine 08/01/2024 12:00 PM EST Chronic kidney disease, unspecified PROTEIN, URINE, RANDOM Routine 08/01/2024 12:00 PM EST Chronic kidney disease, unspecified URINALYSIS WITH REFLEX MICROSCOPIC Routine 08/01/2024 12:00 PM EST Chronic kidney disease, unspecified CREATININE, URINE, RANDOM Routine 08/01/2024 12:00 PM EST Chronic kidney disease, unspecified COMPREHENSIVE METABOLIC PANEL Routine 08/01/2024 11:55 AM EST Chronic kidney disease, unspecified COMPLETE BLOOD COUNT Routine 08/01/2024 11:55 AM EST Chronic kidney disease, unspecified DEBRIDEMENT Routine 06/21/2024 12:30 PM EST 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 (CMS/HCC) 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 (CMS/HCC) Lymphedema LIPID PANEL Routine 05/13/2024 11:47 AM EST Obesity, unspecified Atrial fibrillation (CMS/HCC) Body mass index 40.0-44.9, adult (CMS/HCC) 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) Chronic kidney disease, unspecified Chronic systolic heart failure (CMS/HCC) Diabetic foot ulcer with osteomyelitis (CMS/HCC) from Last 3 Months or Most Recently Relevant to Health Maintenance Results * (ABNORMAL) Urinalysis with reflex microscopic (08/01/2024 12:00 PM EST) Color, Urine Yellow Yellow, Colorless LAB URINALYSIS - AUTOMATED METHOD 08/01/2024 4:05 PM [facility] Clarity, Urine Clear Clear LAB URINALYSIS - AUTOMATED METHOD 08/01/2024 4:05 PM [facility] Specific [place] Urine 1.021 1.005 - 1.030 LAB URINALYSIS - AUTOMATED METHOD 08/01/2024 4:05 PM [facility] pH, Urine 5.0(A) 5.0 - 8.0 pH LAB URINALYSIS - AUTOMATED METHOD 08/01/2024 4:05 PM [facility] Leukocytes, Urine Negative Negative WBCs/mcL LAB URINALYSIS - AUTOMATED METHOD 08/01/2024 4:05 PM [facility] Nitrite, Urine Negative Negative LAB URINALYSIS - AUTOMATED METHOD 08/01/2024 4:05 PM [facility] Protein, Urine Negative Negative mg/dL LAB URINALYSIS - AUTOMATED METHOD 08/01/2024 4:05 PM [facility] Glucose, Urine Negative Negative mg/dL LAB URINALYSIS - AUTOMATED METHOD 08/01/2024 4:05 PM [facility] Ketones, Urine Negative Negative mg/dL LAB URINALYSIS - AUTOMATED METHOD 08/01/2024 4:05 PM [facility] Blood, Urine Negative Negative mg/dL LAB URINALYSIS - AUTOMATED METHOD 08/01/2024 4:05 PM [facility] Urine Urine specimen obtained by clean catch procedure / Unknown Non-blood Collection / Unknown 08/01/2024 12:00 PM EST 08/01/2024 12:00 PM EST Blake rCaig MD LAB URINE ORDERABL ES Final Result [facility] [address] [place] [address], [place] [phone] * Protein, urine, random (08/01/2024 12:00 PM EST) Protein, Urine 15 >=14 mg/dL LAB CHEMISTRY METHOD 08/01/2024 6:25 PM EST [facility] Urine Urine specimen obtained by clean catch procedure / Unknown Non-blood Collection / Unknown 08/01/2024 12:00 PM EST 08/01/2024 12:00 PM EST us Blake Craig MD LAB URINE ORDERABL ES Final Result Performing Organization Address City/[facility] de Phone Number [facility] [address] [place] [address], * Creatinine, urine, random (08/01/2024 12:00 PM EST) Creatinine, Urine 153.0 mg/dL LAB CHEMISTRY METHOD 08/01/2024 5:19 PM EST [facility] Urine Urine specimen obtained by clean catch procedure / Unknown Non-blood Collection / Unknown 08/01/2024 12:00 PM EST 08/01/2024 12:00 PM EST Narrative [facility] - 08/01/2024 5:19 PM EST No reference range has been established for this assay (test result). us Blake Craig MD LAB URINE ORDERABL ES Final Result Performing Organization Address City/[facility]/ZIP Co de Phone Number [facility] [address] [place] [address], [place] [phone] * (ABNORMAL) Complete blood count (08/01/2024 11:55 AM EST) WBC 11.8(H) 4.0 - 10.5 K/[facility] HEMETOLOGY METHOD 08/01/2024 3:17 PM EST [facility] RBC 4.30(L) 4.70 - 6.00 M/[facility] LAB HEMETOLOGY METHOD 08/01/2024 3:17 PM EST [facility] Hemoglobin 13.8 13.5 - 18.0 g/dL LAB HEMETOLOGY METHOD 08/01/2024 3:17 PM EST [facility] Hematocrit 41.5 40.0 - 54.0 % LAB HEMETOLOGY METHOD 08/01/2024 3:17 PM EST [facility] MCV 96.3 78.0 - 100.0 FL LAB HEMETOLOGY METHOD 08/01/2024 3:17 PM EST [facility] MCH 32.1 25.0 - 33.0 pcg LAB HEMETOLOGY METHOD 08/01/2024 3:17 PM EST [facility] MCHC 33.3 32.0 - 36.0 g/dL LAB HEMETOLOGY METHOD 08/01/2024 3:17 PM EST [facility] RDW 14.0 12.1 - 17.7 % LAB HEMETOLOGY METHOD 08/01/2024 3:17 PM EST [facility] Platelets 291 150 - 450 K/mcL LAB HEMETOLOGY METHOD 08/01/2024 3:17 PM EST [facility] MPV 8.2 7.4 - 11.4 FL LAB HEMETOLOGY METHOD 08/01/2024 3:17 PM EST [facility] Blood Venous blood specimen / Unknown Venipuncture / Unknown 08/01/2024 11:55 AM EST 08/01/2024 11:55 AM EST Blake Craig MD LAB BLOOD ORDERABL ES Final Result [facility] [address] [place] [address], * (ABNORMAL) Comprehensive metabolic panel (08/01/2024 11:55 AM EST) [facility] Sodium 137 135 - 145 mmol/L LAB CHEMISTRY METHOD 08/01/2024 8:22 PM [facility] Potassium 4.8 3.5 - 5.1 mmol/L LAB CHEMISTRY METHOD 08/01/2024 8:22 PM [facility] Chloride 102 98 - 107 mmol/L LAB CHEMISTRY METHOD 08/01/2024 8:22 PM [facility] CO2 24 24 - 32 mmol/L LAB CHEMISTRY METHOD 08/01/2024 8:22 PM [facility] Anion Gap 11 5 - 14 LAB CHEMISTRY METHOD 08/01/2024 8:22 PM [facility] Glucose 102 70 - 199 mg/dL LAB CHEMISTRY METHOD 08/01/2024 8:22 PM [facility] BUN 45(H) 9 - 20 mg/dL LAB CHEMISTRY METHOD 08/01/2024 8:22 PM [facility] Creatinine 2.00(H) 0.70 - 1.30 mg/dL LAB CHEMISTRY METHOD 08/01/2024 8:22 PM [facility] eGFR 32(L) >=60 mL/min/1. 73m2 LAB CHEMISTRY METHOD 08/01/2024 8:22 PM [facility] Comment:Calculation based on the??Chronic Kidney Disease Epidemiology Collaboration (CKD-EPI) equation refit??without adjustment for race. BUN/Creatinine Ratio 22.5(H) 12.0 - 20.0 LAB CHEMISTRY METHOD 08/01/2024 8:22 PM [facility] Calcium 9.6 8.4 - 10.2 mg/dL LAB CHEMISTRY METHOD 08/01/2024 8:22 PM [facility] AST (SGOT) 23 5 - 40 unit/L LAB CHEMISTRY METHOD 08/01/2024 8:22 PM [facility] ALT (SGPT) 23 7 - 52 unit/L LAB CHEMISTRY METHOD 08/01/2024 8:22 PM [facility] Alkaline Phosphatase 103 34 - 104 unit/L LAB CHEMISTRY METHOD 08/01/2024 8:22 PM EST [facility] Total Protein 7.3 6.4 - 8.5 g/dL LAB CHEMISTRY METHOD 08/01/2024 8:22 PM EST [facility] Albumin 3.8 3.5 - 5.0 g/dL LAB CHEMISTRY METHOD 08/01/2024 8:22 PM EST [facility] Total Bilirubin 0.4 0.3 - 1.0 mg/dL LAB CHEMISTRY METHOD 08/01/2024 8:22 PM EST [facility] Blood Venous blood specimen / Unknown Venipuncture / Unknown 08/01/2024 11:55 AM EST 08/01/2024 11:55 AM EST Blake Craig MD LAB BLOOD ORDERABL ES Final Result [facility] [address] [place] [address], * Debridement Venous Ulcer Right;Medial Ankle (06/21/2024 [...] ??06/21/2024 2:00 PM Debridement Details: ??Performed by: ??FAMILY SOCIOLOGIST ??Type: selective ?Pain control: ??Lidocaine 5% ??Pain [...] ??Response to treatment: ??Procedure was tolerated well us Blossom Bradley NP IN CLINIC/BEDSIDE ORDERABLES Final Result * (ABNORMAL) Lipid panel (05/13/2024 11:47 AM EST) Cholesterol 148 0 - 200 mg/dL LAB CHEMISTRY METHOD 05/13/2024 2:55 PM [facility] Triglycerides 177(H) <150 mg/dL LAB CHEMISTRY METHOD 05/13/2024 2:55 PM [facility] HDL 35 mg/dL LAB CHEMISTRY METHOD 05/13/2024 2:55 PM [facility] LDL Calculated 78 50 - 130 mg/dL LAB CHEMISTRY METHOD 05/13/2024 2:55 PM [facility] VLDL Cholesterol Efrain 35.4 mg/dL LAB CHEMISTRY METHOD 05/13/2024 2:55 PM [facility] Comment:No established refer ence range. Blood Venous blood specimen / Unknown Venipuncture / Unknown 05/13/2024 11:47 AM EST 05/13/2024 11:47 AM EST us Alton Lovelace MD LAB BLOOD ORDERABLES Final Res ult [facility] [address] [place] [address], [place] [phone] from Last 3 Months or Most Recently Relevant to Health Maintenance Additional Health Concerns Active Problems Noted Date Diagnosed Date Impaired Tissue 04/06/2024 Education needed on impact of smoking on wound 1 06/06/2023 Education needed related to ulceration/compromised skin integrity. 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
--- OUTSIDE RECORDS SUMMARY | 2024-08-24 17:41 | XMS_ITS | Encounter Summary ---
Author Organization [facility] Address [address] [place] [address] Care Team Providers Care Quarrying Manager Name Role Phone Alton Lovelace MD Unavailable [phone] Alton Lovelace MD Primary Care Provider Eric Barth MD Unavailable [phone] Encounter Details Date Type Department Care Team (Late st Contact Info) Description 08/22/2024 Telephone [facility] [place] [address] [phone] Eric Barth MD [address] [place] [id number] Social History Tobacco Use Types Packs/Day Years Used Date Smoking Tobacco: Some Days Cigarettes Smokeless Tobacco: Never Alcohol Use Standard Drinks/Week Comments Never 0 (1 standard drink = 0.6 oz pur e alcohol) [facility] Utilities Answer Date Recorded In the past 12 months has [email or web address] electric, gas, oil, or water company threatened to [...] place to sleep or slept in a mcc (including now)? No 03/14/2024 Sex and Gender Information Value Date Recorded Sex Assigned at Male 12/16/2023 1:08 PM EDT Gender Identity Male 12/16/2023 1:08 PM EDT Sexual Orientation Heterosexual (straight) 12/15 1:08 PM EDT documented as of this encounter Plan of Treatment Upcoming Encounters Date Type Department Care Team (Late st Contact Info) Description 10/06/2024 11:00 AM EDT Appointment [facility] [place] [address] [phone] Eric Barth MD [address] [address] 11/22/2024 1:00 PM EDT Office Visit [facility] [address] [phone] Eric Barth MD 7 [facility] [address] [place] [address] documented as of this encounter Visit Diagnoses Not on filedocumented in this encounter Care Teams Quarrying Manager Relationship Specialty Start Date End Date Alton Lovelace MD [address] [place] [address] PCP - APNCT [employer] Attributed 06/01/22 Alton Lovelace MD [address] [place] [address] PCP - General Internal Medicine 12/16/23 Eric Barth MD [facility] [place] [address] Primary Carton Repairer Cardiovascular Disease 12/24/23 documented as of this encounter
--- OUTSIDE RECORDS SUMMARY | 2024-08-24 17:41 | XMS_ITS | Encounter Summary ---
Author Organization [facility] Address [address] [place] [address] Care Team Providers Care Tube Closing Machine Operator Name Role Phone Alton Lovelace MD Unavailable [phone] Alton Lovelace MD Primary Care Provider [phone] Eric Barth MD Unavailable [phone] Reason for Visit * Reason Comments Follow-up Encounter Details Date Type Department Care Team (Late st Contact Info) Description 08/22/2024 11:20 AM EDT Office Visit [facility] & Vascular [place] [address] [phone] Eric Barth MD [address] [place] [address] SOB (shortness of breath) (Primary Dx) Social History Tobacco Use Types Packs/Day Years Used Date Smoking Tobacco: Some Days Cigarettes Smokeless Tobacco: Never Tobacco Cessation:Ready to Q uit: Not Asked; Counseling Given: Not Answered Alcohol Use Standard Drinks/Week Comments Never 0 (1 standard drink = 0.6 oz pur e alcohol) [facility] Utilities Answer Date Recorded In the past 12 months has e [employer], gas, oil, or water company threatened to [...] money to buy more. Never true 03/14/20 Within the past 12 months, t he [...] place to sleep or slept in a long-term (including now)? No 03/14/2024 Sex and Gender Information Value Date Recorded Sex Assigned at Male 12/16/2023 1:08 PM EDT Gender Identity Male 12/16/2023 1:08 PM EDT Sexual Orientation Heterosexual (straight) 12/15 1:08 PM EDT documented as of this encounter Last Filed Vital Signs Vital Sign Reading Time Taken Comments Blood Pressure 116/70 08/22/2024 11:28 AM EDT Pulse 83 08/22/2024 11:28 AM EDT Temperature - - Respiratory Rate - - Oxygen Saturation 96% 08/22/2024 11:28 AM EDT Inhaled Oxygen Concentration - - Weight 131 kg (288 lb 1.6 oz) 08/22/2024 11:28 A M EDT Height 182.9 cm (6') 08/22/2024 11:28 AM EDT Body Mass Index 39.07 08/22/2024 11:28 AM EDT documented in this encounter Progress Notes * Eric Johnson MD - 08/22/2024 12:36 PM EDT Images from the original note were not included. Chief Complaint: Chief Complaint Patient presents with Follow-up History of Present Illness: Previously 83-year-old male was previously followed by [place] placement interviewer Dr. Wyatt presents for initial cardiology consultation due to insurance issues. Patient has prior history of DVT and A-fib in 2020 andsince then has remained in A-fib. He has COPD history and is actively smoking. Denies any chest pain but does endorse shortness of breath on exertion. He was hospitalized with leg cellulitis and severe sepsis requiring antibiotics with course complicated by COPD exacerbation. Has history of HFpEF and is on bumetanide as well as spironolactone. Last echocardiogram which was done last week showed preserved LVEF 55 to 65% with normal RV function. No significant valvular disease. On presentation today patient was in atrial fibrillation with rates of 90 bpm. Chest x-ray lastweek showed no signs of congestive heart failure. On today's visit Remains short of breath. Has seen regional commercial sales manager. Has moderate to severe COPD which is being managedby regional commercial sales manager. Symptoms remain unchanged but higher dose of bumetanide. Developed CKD with creatinine of 1.4, pending evaluation by nephrology. Was seen by vascular surgery for abdominal aortic aneurysm and is supposed to undergo abdominal CTA pending clearance from nephrology Cardiac Problems: Dyspnea on exertion from COPD Pending evaluation by pulmonology Permanent A-fib on Xarelto HFpEF, echo pending Prior history of DVT Obesity Active smoker Hypertension Hyperlipidemia Cardiac Imaging: Echo November 2023 LVEF 55 to 65% Normal RV function No significant valvular disease Assessment/Plan: Dyspnea on exertion, multifactorial HFpEF, appears euvolemic but overall difficult assessment of volume status due to body habitus - Echo and stress test pending - Have asked the patient to go back on 1 mg bumetanide daily Permanent A-fib on Xarelto - Echo pending - Continue Xarelto and diltiazem 120 mg XL HFpEF, currently euvolemic - Continue bumetanide 1 mg daily - Continue spironolactone 25 mg daily Prior history of DVT -Continue Xarelto Obesity Active smoker Hypertension Hyperlipidemia Return in about 3 months (around 11/22/2024). Medications: Current Outpatient Medications Medication Sig Dispense Refill albuterol (PROVENTIL HFA; VENTOLIN HFA) 108 (90 Base) MCG/ACT inhaler Inhale 2 puffs 4 (four) timesa day. ascorbic acid 250 MG tablet Take 2 tablets (500 mg total) by mouth. aspirin enteric coated (ECOTRIN LOW STRENGTH) 81 MG EC tablet Take 1 tablet (81 mg total) by mouth daily. bumetanide (BUMEX) 1 MG tablet Take 1 tablet (1 mg total) by mouth daily. 90 tablet 3 clobetasol (TEMOVATE) 0.05 % ointment APPLY TO RASH TWICE DAILY FOR 10 DAYS THEN HOLD ONE WEEK. MAYREPEAT NEEDED mprzmurfqjw-bswaezvmxexy-ajjbslrfcm (TRELEGY ELLIPTA) 200-62.5-25 mcg/act inhaler Inhale 1 puff daily. magnesium oxide (MAG-OX) 400 MG tablet Take 1 tablet (400 mg total) by mouth daily. spironolactone (ALDACTONE) 25 MG tablet Take 1 tablet (25 mg total) by mouth daily. 100 tablet 3 SSD 1 % cream 2 times a day. Xarelto 20 MG tablet diltiazem (CARDIZEM CD) 120 MG 24 hr capsule Take 1 capsule (120 mg total) by mouth daily. 90 capsule 3 No current facility-administered medications for this visit. Allergies: Allergies Allergen Reactions Furosemide Hives and Itching Adhesives/Tape Rash/Dermatitis Paper tape okay Onion Nausea And Vomiting Past Medical History: Active Ambulatory Problems Diagnosis Date Noted COPD exacerbation (HCC) 03/12/2024 Acute hypoxic respiratory failure (HCC) 03/12/2024 Lactic acidosis 03/12/2024 Cellulitis 03/12/2024 Resolved Ambulatory Problems Diagnosis Date Noted Sepsis ([facility]) 03/12/2024 Past Medical History: Diagnosis Date CHF (congestive heart failure) (HCC) COPD (chronic obstructive pulmonary disease) (HCC) Reviewed 08/22/24 Surgical History: No past surgical history on file. Reviewed 08/22/24 Family History: No family history on file. Reviewed 08/22/24 Social History: Social History Socioeconomic History Marital status: Spouse name: Not on file Number of children: Not on file Years of education: Not on file Highest education level: Not on file Occupational History Not on file Tobacco Use Smoking status: Some Days Types: Cigarettes Smokeless tobacco: Never Substance and Sexual Activity Alcohol use: Never Drug use: Never Sexual activity: Not on file Other Topics Concern Not on file Social History Narrative Not on file Social Determinants of Health Financial Resource Strain: Low Risk (03/14/2024) Overall Financial Resource Strain (CARDIA) Difficulty of Paying Living Expenses: Not very hard Food Insecurity: No Food Insecurity (03/14/2024) Hunger Vital Sign Worried About Running Out of Food in the Last Year: Never true Ran Out of Food in the Last Year: Never true Transportation Needs: No Transportation Needs (03/14/2024) PRAPARE - Transportation Lack of Transportation (Medical): No Lack of Transportation (Non-Medical): No Physical Activity: Not on file Stress: Not on file Social Connections: Not on file Housing Stability: Low Risk (03/14/2024) Housing Stability Vital Sign Unable to Pay for Housing in the Last Year: No Number of Places Lived in the Last Year: 1 Unstable Housing in the Last Year: No Reviewed 08/22/24 Review of Systems: Constitutional - No fever, chills. No fatigue. HEENT - No headache. No visual field changes. CVS - please see above HPI Resp - No cough, wheeze or sputum. GI - No nausea or vomiting. No diarrhea. No jaundice. Skin - No rashes. No concerning skin lesions. Heme - No abnormal clotting. No abnormal bruising or bleeding. Ext - No new joint swelling or pain. Normal ROM. Neuro - No transient weakness, numbness. No tremors. Psych - Stable mood. No depression or anxiety. Physical Exam: Vitals: 08/22/24 1128 BP: 116/70 BP Location: Right arm Patient Position: Sitting Cuff Size: Large Pulse: 83 SpO2: 96% Weight: 131 kg (288 lb 1.6 oz) Height: 1.829 m (6') Body mass index is 39.07 kg/m??. Gen : comfortable, alert JVP : No JVD HEENT: no icterus or pallor, moist oral mucosa Lungs : good inspiratory effort, no crackles, no wheezing CVS : regular rhythm, normal S1 S2, no murmur or gallop Abdo : soft, non-distended, non-tender, no organomegaly appreciated Peripheries : warm, no edema Vasc: no carotid bruit, 2+ DP and radial pulses bilaterally Neuro: oriented x3, normal gait/stance Skin: dry, no cyanosis, no rash Labs: No results found for: CHOL , HDL , LDLCHOL , LDLCALC , VLDL , TRIG Lab Results Component Value Date WBC 17.7 (H) 03/14/2024 Lab Results Component Value Date BUN 48 (H) 03/14/2024 NA 138 03/14/2024 K 4.6 03/14/2024 CL 105 03/14/2024 CO2 24 03/14/2024 CALCIUM 9.1 03/14/2024 ALBUMIN 3.6 03/14/2024 ALKPHOS 75 03/14/2024 AST 19 03/14/2024 ALT 25 03/14/2024 Lab Results Component Value Date HGBA1C 6.1 (H) 05/13/2024 No results found for: INR ECG: Recent Results (from the past 8760 hour(s)) ECG 12 lead Collection Time: 08/22/24 11:34 AM Result Value Status Ventricular rate 83 Final QRS duration 148 Final Q-T interval 384 Final QTC calculation (Bazett) 451 Final R axis 91 Final T axis 45 Final Narrative Atrial fibrillation with premature ventricular or aberrantly conducted complexes Right bundle branch block Abnormal ECG When compared with ECG of 26-Apr-2024 09:37, QRS axis Shifted right Minimal criteria for Inferior infarct are no longer Present Confirmed by MD Barth Usama ([id number]) on 08/22/2024 11:45:57 AM Eric Johnson MD [facility] T: [phone] F: [phone] Main Office: [address] [place] [address] documented in this encounter Plan of Treatment Upcoming Encounters Date Type Department Care Team (Late st Contact Info) Description 10/06/2024 11:00 AM EDT Appointment [facility] Heart & Vascular [address] [phone] Eric Barth MD [address] [place] [address] 11/22/2024 1:00 PM EDT Office Visit [facility] & Vascular [place] [address] [place] [phone] rEic Barth MD [address] [place] [address] documented as of this encounter Procedures Procedure Name Priority Date/Time Associated Diagnosis Comments ECG 12-LEAD Routine 08/22/2024 11:34 AM EDT SOB (shortness of breath) documented in this encounter Results * ECG 12 lead (08/22/2024 11:34 AM EDT) Ventricular rate 83 BPM EKG [facility] QRS duration 148 ms EKG [facility] Q-T interval 384 ms EKG [facility] QTC calculation (Bazett) 451 ms EKG [facility] R axis 91 degrees EKG [facility] T axis 45 degrees EKG [facility] 08/22/2024 11:3 4 AM EDT Narrative EKG [facility] - 08/22/2024 11:45 AM EDT Atrial fibrillation with premature ventricular or aberrantly conducted complexes Right bundle branch block Abnormal ECG When compared with ECG of 26-Apr-2024 09:37, QRS axis Shifted right Minimal criteria for Inferior infarct are no longer Present Confirmed by MD Barth Usama ([id number]) on 08/22/2024 11:45:57 AM Procedure Note Eric Barth MD - 08/22/2024 Atrial fibrillation with premature ventricular or aberrantly conductedcomplexes Right bundle branch block Abnormal ECG When compared with ECG of 26-Apr-2024 09:37, QRS axis Shifted right Minimal criteria for Inferior infarct are no longer Present Confirmed by MD Barth Usama ([id number]) on 08/22/2024 11:45:57 AM Eric Johnson MD ECG ORDERABLES EKG [facility] documented in this encounter Visit Diagnoses Diagnosis SOB (shortness of breath)- Primary Shortness of breath documented in this encounter Care Teams Tube Closing Machine Operator Relationship Specialty Start Date End Date Alton Lovelace MD [address] [place] [address] PCP - APNCT [employer] Attributed 06/01/22 Alton Lovelace MD [address] [place] [address] PCP - General Internal Medicine 12/16/23 Eric Barth MD [address] [place] [address] Primary Pattern Clerk Cardiovascular Disease 12/24/23 documented as of this encounter
--- OUTSIDE RECORDS SUMMARY | 2024-08-24 17:41 | XMS_ITS | Encounter Summary ---
Author Organization [facility] Address [address] [place] [address] Care Team Providers Care Labor/Excavator Name Role Phone Alton Lovelace MD Unavailable [phone] Alton Lovelace MD Primary Care Provider [phone] Eric Barth MD Unavailable [phone] Encounter Details Date Type Department Care Team (Latest Contact Info) Description 08/22/2024 Travel Social History Tobacco Use Types Packs/Day Years Used Date Smoking Tobacco: Some Days Cigarettes Smokeless Tobacco: Never Alcohol Use Standard Drinks/Week Comments Never 0 (1 standard drink = 0.6 oz pur e alcohol) [facility] Utilities Answer Date Recorded In the past 12 months has [employer], gas, oil, or water [employer] threatened to shut off services in your [...] Never 03/12/2024 Overall Financial Resource Strain (CARDIA) Olindae r Date Recorded How hard is it [...] place to sleep or slept in a longterm (including now)? No 03/14/2024 Sex and Gender Information Value Date Recorded Sex Assigned at Male 12/16/2023 1:08 PM EDT Gender Identity Male 12/16/2023 1:08 PM EDT Sexual Orientation Heterosexual (straight) 12/15 1:08 PM EDT documented as of this encounter Plan of Treatment Upcoming Encounters Date Type Department Care Team (Late st Contact Info) Description 10/06/2024 11:00 AM EDT Appointment [facility] Heart & Vascular [address] [phone] Eric Barth MD [address] [place] [phone] 11/22/2024 1:00 PM EDT Office Visit [facility] & Vascular [address] [phone] Eric Barth MD [address] [place] [phone] documented as of this encounter Visit Diagnoses Not on filedocumented in this encounter Care Teams Labor/Excavator Relationship Specialty Start Date End Date Alton Lovelace MD [address] [place] [address] PCP - APNCT [employer] Attributed 06/01/22 Alton Lovelace MD [address] [place] [address] PCP - General Internal Medicine 12/16/23 Eric Barth MD [facility] [place] [address] Primary Reel Operator Cardiovascular Disease 12/24/23 documented as of this encounter
--- OUTSIDE RECORDS SUMMARY | 2024-08-24 17:41 | XMS_ITS ---
Care Plan Created on: August 24, 2024 Jose Gonzáles : 1940 Sex: Male Author Organization [address] [facility] Address [address] [place] [address] Phone Care Team Providers Care Parachute Marker Name Role Phone Alton Lovelace MD Primary Care Provider [phone] Active Problems Problem Noted Date Diagnosed Date [...] Care Education Care Plan Impaired Tissue No Lcua Rivas, airplane pilot photogrammetry volume breakdown reduced by X% by week 4 Care Plan Impaired Tissue No Luca Rivas, airplane pilot photogrammetry volume breakdown reduced by X% by week 8 Care Plan Impaired Tissue Luca Urias, airplane pilot photogrammetry volume breakdown reduced by X% by week [...] skin integrity. No Luca Rivas RN Interventions Care Plan Interventions Intervention Entry Date Outcome Provide caregiver [...]
== END 2024-08-24 15:11 | disposition home or self-care (01) ==
PROVIDERS: PCP Internal Medicine; Visit Provider Internal Medicine Hypertension Specialist
DX: N18.9 Chronic kidney disease, unspecified (principal)
CPT/HCPCS: 99214

== ENCOUNTER → 2024-08-24 14:43 | Outpatient (BNVA) | payer MEDICARE, SELFPAY | PROVIDERS: PCP Internal Medicine; Visit Provider Internal Medicine Hypertension Specialist | DX: I13.0 Hypertensive heart and chronic kidney disease with heart failure and stage 1 through stage 4 chronic kidney disease, or unspecified chronic kidney disease (principal); I50.9 Heart failure, unspecified; N18.9 Chronic kidney disease, unspecified; J44.9 Chronic obstructive pulmonary disease, unspecified; F17.210 Nicotine dependence, cigarettes, uncomplicated | CPT/HCPCS: 99212 ==

== ENCOUNTER 2024-10-12 15:07 | Outpatient (AMB) | payer MEDICARE, SELFPAY ==
--- NOTE | 2024-10-12 15:08 | HO.NEPHOV ---
Vital Signs 10/12/24 15:09 Height 6 ft Weight 286 lb BMI 38.8 BP 118/80 Blood Pressure Location Rt brachial Position Sitting Pulse 95 Pulse Source Pulse Oximeter Pulse Oximetry (%) 96 Oxygen Delivery Method Room Air Intake Visit Reasons: 6-7wk follow-up w/labs LVM Supervisor Shuttle Fitting Required: No Accompanied by: Spouse Allergies adhesive tape Allergy (Unknown, Verified 10/12/24 15:11) Hives furosemide Allergy (Unknown, Verified 10/12/24 15:11) Hives onion Allergy (Unknown, Verified 10/12/24 15:11) Hives Medication List - Last Reconciled 10/12/24 by Blake Craig MD albuterol sulfate 90 mcg/actuation 2 inhalations inhalation Q4-6H PRN ascorbic acid (vitamin C) 500 mg PO DAILY aspirin 81 mg PO DAILY benzonatate mg PO DAILY PRN bumetanide 1 mg PO DAILY diltiazem HCl CD 120 mg PO DAILY ewgnkgbziuo-wiydivnvl-bnuwmcsw 100-62.5-25 mcg (Trelegy Ellipta) 1 ea inhalation DAILY glucosamine sulfate (Glucosamine) 500 mg PO DAILY magnesium oxide 500 mg PO DAILY melatonin 5 mg PO PRN mupirocin calcium 2% appl topical rivaroxaban (Xarelto) 20 mg PO DAILY silver sulfadiazine 1% (SSD) appl topical spironolactone 25 mg PO DAILY zinc acetate (Galzin) 50 mg PO DAILY HPI Comments Details: 84-year-old man with a history of longstanding hypertension congestive heart failure and COPD has been referred for evaluation of chronic kidney disease. Serum creatinine has been staying between 1.4 and 1.6 mg/dL. He was hospitalized at [facility] for COPD. He was on high dose of diuretics which was lowered due to low blood pressure. He also has a history of abdominal aortic aneurysm measuring 4.4 cm. He was seen by vascular surgery. History of chronic venous insufficiency with stasis dermatitis. He is currently being treated by the wound clinic Today was accompanied by his . Jose has history of chronic smoked for several years. He says he still smokes 1 or 2 cigarettes a day. Interestingly he says that he is able to breathe better when he smokes.!! No urinary symptoms like dysuria urgency increased frequency. He has shortness of breath on exertion no chest pain. No nausea or vomiting. 08/24/24 Gained 6 lbs Bumex was doubled for a week. Work in progress for dyspnea including pulm evaluation Still smokes. 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 of skin Right bundle branch block (RBBB) Atrial fibrillation DVT (deep venous thrombosis) Emphysema lung Mixed hyperlipidemia Essential hypertension Secondary hypercoagulable state Chronic systolic (congestive) heart failure 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 Diabetic foot ulcers Non-pressure chronic ulcer of skin of other sites with unspecified severity Chronic kidney disease, stage 2 (mild) Surgical History History of knee surgery (~2013) History of hernia repair Physical Exam Vital Signs: Last Vital Signs Pulse 95 10/12/24 15:09 BP 118/80 10/12/24 15:09 Pulse Ox 96 10/12/24 15:09 Oxygen Delivery Method Room Air 10/12/24 15:09 BMI result Body Mass Index 38.8 Const Nutritional Appearance: obese Neck Neck: Yes supple Resp Auscultation: rhonchi Cardio Palpation: no palpable S3 Heart sounds: no rubs GI Palpation (GI): Soft to palpation Auscultation: normal bowel sounds Neuro Motor exam (neuro): no asterixis Extrem General: Yes edema Results Reviewed Results Reviewed: Cr 2.0 Hgb 13 UA: no RBC or protein 10/05/24 BUN 52 Cr 2.0 K 5.2 Nephrology Results: No Data to Display Assessment & Plan Assessment & Plan (1) CKD (chronic kidney disease): Code(s): N18.9 - Chronic kidney disease, unspecified Category: Medical Plan Elderly man with a history of longstanding COPD hypertension and congestive heart failure has stage 3 chronic kidney disease. 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 Bump in creatinine due to hypoperfusion. Recent urine sediments were bland therefore glomerular nephritis or interstitial disease seem unlikely. Recommendations Low-sodium diet Continue current dose of diuretics. Continue to avoid nephrotoxic agents including NSAIDs. Optimize blood pressure and continue to avoid hypotension. workup for CKD ; renal ultrasonogram- No hydronephrosis. Renal function is stable Creatinine unchanged at 2.0 Mild hyperkalemia in a setting of CKD and SPironolactone He has been eating more Tomatoes/potatoes. Discussed low K diet If K remains persistently elevated >5.5, despite dietary restriction, would add Lokelma . Orders: Orders Basic Metabolic Panel 3 Months N18.9 - Chronic kidney disease, unspecified Complete Blood Count no Diff 3 Months N18.9 - Chronic kidney disease, unspecified Coding Level of Care Code Est Pt Level 4 (02766) Diagnoses CKD (chronic kidney disease) N18.9
[2024-10-12 15:09] VITALS: BP 118/80; PULSE 95; O2SAT 96; BMI 38.8
--- OUTSIDE RECORDS SUMMARY | 2024-10-12 15:09 | XMS_ITS | Encounter Summary ---
Author Organization [facility] Address [address] [place] [address] Care Team Providers Care Head Swamper Name Role Phone Alton Lovelace MD Unavailable [phone] Alton Lovelace MD Primary Care Provider Eric Barth MD Unavailable [phone] Encounter Details Date Type Department Care Team (Late st Contact Info) Description 08/22/2024 Telephone [facility] Heart & Vascular [place] [address] [phone] Eric Barth MD [address] [place] [id number] Social History Tobacco Use Types Packs/Day Years Used Date Smoking Tobacco: Some Days Cigarettes Smokeless Tobacco: Never Alcohol Use Standard Drinks/Week Comments Never 0 (1 standard drink = 0.6 oz pur e alcohol) [facility] Utilities Answer Date Recorded In the past 12 months has [employer], gas, oil, or water company threatened [...] place to sleep or slept in a nursing home (including now)? No 03/14/2024 Sex and Gender Information Value Date Recorded Sex Assigned at Male 12/16/2023 1:08 PM EDT Legal Sex Male 6:46 PM EST Gender Identity Male 12/16/2023 1:08 PM EDT Sexual Orientation Heterosexual (straight) 12/15 1:08 PM EDT documented as of this encounter Miscellaneous Notes * Telephone Encounter - Kapil Garibay MA - 08/26/2024 10:12 AM EDT Spoke with patient's . Relayed MD guidance that digoxin can be harmful to kidneys which is why patient has to be cautious with its use. Also read off 08/22/24 office note that for diuretics, patient should be taking bumetanide 1 mg 1x/day and spironolactone 25 mg 1x/day. Patient's agrees toplan and has no further questions or concerns at this time. documented in this encounter Plan of Treatment Upcoming Encounters Date Type Department Care Team (Late st Contact Info) Description 11/22/2024 1:00 PM EDT Office Visit [facility] Heart & [facility] [place] [address] [facility] [address] [place] [address] Eric Barth MD [address] [facility] [address] [place] [address] documented as of this encounter Visit Diagnoses Not on filedocumented in this encounter Care Teams Head Swamper Relationship Specialty Start Date End Date Alton Lovelace MD [address] [place] [address] PCP - APNCT [employer] Attributed 06/01/22 Alton Lovelace MD [address] [place] [address] PCP - General Internal Medicine 12/16/23 Eric Barth MD [address] [place] [address] Primary Banjo Repairer Cardiovascular Disease 12/24/23 documented as of this encounter
--- OUTSIDE RECORDS SUMMARY | 2024-10-12 15:09 | XMS_ITS | Encounter Summary ---
Author Organization [facility] Address [address] [place] [address] Care Team Providers Care Financial Recording Clerk Name Role Phone Alton Lovelace MD Unavailable [phone] Alton Lovelace MD Primary Care Provider Eric Barth MD Unavailable [phone] Encounter Details Date Type Department Care Team (Late st Contact Info) Description 03/07/2024 Telephone [facility] [address] [address] Eric Barth MD [address] [place] [id number] Social History Tobacco Use Types Packs/Day Years [...] Description 11/22/2024 1:00 PM EDT Office Visit [facility] [place] 7 [facility] [address] [place] [address] Eric Barth MD 7 [facility] [address] [place] [address] documented as of this encounter Visit Diagnoses Not on filedocumented in this encounter Additional Health Concerns Infection Onset Date Last Indicated Resolved Time R/O Respiratory Disease 03/12/2024 03/12/202403/01 11:42 PM EDT documented as of this encounter Care Teams Financial Recording Clerk Relationship Specialty Start Date End Date Alton Lovelace MD [address] [place] [address] PCP - APNCT [employer] Attributed 06/01/22 Alton Lovelace MD [address] [place] [address] PCP - General Internal Medicine 12/16/23 Eric Barth MD [facility] [place] [address] Primary Train Control Electronic Technician Cardiovascular Disease 12/24/23 documented as of this encounter
--- OUTSIDE RECORDS SUMMARY | 2024-10-12 15:09 | XMS_ITS | Continuity of Care Document ---
Author Organization [facility] Address [address] [facility] [address] [place] [phone] Phone Care Team Providers Care Pageant Director Name Role Phone Judi STEELE, Jorge Unavailable Unavailable Advance Directives Directive Yes / No Effective Date File Name No Information Encounters Encounter Description Practice Location Reason(s) For Visit Diagnoses Date Provider Providers Copied on Encounter [facility], [address] [facility] [address], [place], [place], [id number], [place] tel:[phone] [facility] No Information 2 Judi Patel. [address] [facility] [address], [place], [address], [place]. tel:[phone] Family History Family Member Type Diagnosis Age At Onset No Information Payers Payer name Insurance type Covered alliance party ID Authoriza tion(s) No Information Social History Type Description Quantity Date Captured Comments Sex Undifferentiated Smoking Status No Information Chief Complaint And [...]
--- OUTSIDE RECORDS SUMMARY | 2024-10-12 15:09 | XMS_ITS | Encounter Summary ---
Author Organization [facility] Address [address] [place] [address] Care Team Providers Care Hydraulic Auto Jack Mechanic Name Role Phone Alton Lovelace MD Unavailable [phone] Alton Lovelace MD Primary Care Provider [phone] Eric Barth MD Unavailable [phone] Encounter Details Date Type Department Care Team (Late st Contact Info) Description 12/16/2023 Scanned Document [facility] Vascular [address] [address] Primary Care, Scan Social History [...] Description 11/22/2024 1:00 PM EDT Office Visit [facility] Vascular [facility] [address] [phone] Eric Barth MD [address] [phone] documented as of this encounter Visit Diagnoses Not on filedocumented in this encounter Additional Health Concerns Infection Onset Date Last Indicated Resolved Time R/O Respiratory Disease 03/12/2024 03/12/202403/01 11:42 PM EDT documented as of this encounter Care Teams Hydraulic Auto Jack Mechanic Relationship Specialty Start Date End Date Alton Lovelace MD [address] [place] [address] PCP - APNCT [employer] Attributed 06/01/22 Alton Lovelace MD [address] [place] [address] PCP - General Internal Medicine 12/16/23 Eric Barth MD [facility] [place] [address] Primary Sales Order Coordinator Cardiovascular Disease 12/24/23 documented as of this encounter
--- OUTSIDE RECORDS SUMMARY | 2024-10-12 15:09 | XMS_ITS | Clinical Summary ---
Author Organization [facility] Address [address] [place] [address] Care Team Providers Care Therapeutic Radiologist Name Role Phone Alton Lovelace MD Unavailable [phone] Alton Lovelace MD Primary Care Provider [phone] Eric Barth MD Unavailable [phone] Allergies Active Allergy Reactions Criticality Noted Date Comments Adhesives/Tape Rash/Dermatitis Low 11/05/2018 Paper tape okay Furosemide Hives,Itching Medium 06/02/2023 Onion Nausea And Vomiting Low 11/05/2018 Medications albuterol (PROVENTIL HFA; VENTOLIN HFA) 108 (90 Base) MCG/ACT inhaler Inhale 2 puffs 4 (four) times a day. 12/02/2023 Active ascorbic acid 250 MG tablet Take 2 tablets (500 mg total) by mouth. Active aspirin enteric coated (ECOTRIN LOW STRENGTH) 81 MG EC tablet Take 1 tablet (81 mg total) by mouth daily. Active Xarelto 20 MG tablet 12/24/2023 Active SSD 1 % cream 2 times a day. 08/31/2023 Active magnesium oxide (MAG-OX) 400 MG tablet Take 1 tablet (400 mg total) by mouth daily. Active fluticasone-ume clidinium-vilan terol (TRELEGY ELLIPTA) 200-62.5-25 mcg/act inhaler Inhale 1 puff daily. 10/05/2023 Active clobetasol (TEMOVATE) 0.05 % ointment APPLY TO RASH TWICE DAILY FOR 10 DAYS THEN HOLD ONE WEEK. MAY REPEAT NEEDED 11/13/2023 Active bumetanide (BUMEX) 1 MG tabletIndicatio ns:SOB (shortness of breath) Take 1 tablet (1 mg total) by mouth daily. 90 tablet 3 01/05/2024 Active spironolactone (ALDACTONE) 25 MG tabletIndicatio ns:SOB (shortness of breath) Take 1 tablet (25 mg total) by mouth daily. 100 tablet 3 01/08/2024 Active diltiazem (CARDIZEM CD) 120 MG 24 hr capsuleIndicati ons:SOB (shortness of breath) Take 1 capsule (120 mg total) by mouth daily. 90 capsule 3 08/22/2024 Active Active Problems Problem Noted Date Diagnosed Date COPD exacerbation 03/12/2024 Acute hypoxic respiratory failure 03/12/2024 Lactic acidosis 03/12/2024 Cellulitis 03/12/2024 Resolved Problems Problem Noted Date Diagnosed Date Resolved Date Sepsis 03/12/2024 04/27/2024 Encounters Date Type Department Care Team Description 10/10/2024 Travel 08/22/2024 11:20 AM EDT Office Visit [facility] V[facility] [address] [phone] Eric Barth MD SOB (shortness of breath) (Primary Dx) 08/22/2024 Telephone [facility] & V[facility] [address] [phone] Eric Barth MD 08/22/2024 Travel from Last 3 Months Social History Tobacco Use Types Packs/Day Years Used Date Smoking Tobacco: Some Days Cigarettes Smokeless Tobacco: Never Tobacco Cessation:Ready to Q uit: Not Asked; Counseling Given: Not Answered Alcohol Use Standard Drinks/Week Comments Never 0 (1 standard drink = 0.6 oz pur e alcohol) [facility] Utilities Answer Date Recorded In the past 12 months has [employer], gas, oil, or water company threatened to [...] place to sleep or slept in a chcf (including now)? No 03/14/2024 Sex and Gender [...] Description 11/22/2024 1:00 PM EDT Office Visit [facility] [place] [address] [phone] Eric Barth MD [address] [place] [phone] Health Maintenance Due Date Last Done Comments DTaP/Tdap/Td Vaccines (1 - Tdap) 1959 Pneumococcal Vaccines 50+ (1 of 2 - PCV) 1959 Zoster (Shingles) Vaccine (1 of 2) 1990 RSV Vaccine 60 years and older and Patients (1 - 1-dose 75+ series) 2015 COVID-19 Vaccine ( season) 2024 04/11/2024, 02/21/2023, 05/28/2022, Additional history exists Influenza Vaccine 12/30/2024 Hepatitis B Vaccines Aged Out No long er eligible based on patient's age to complete this topic Procedures Procedure Name Priority Date/Time Associated Diagnosis Comments ECHOCARDIOGRAM (TTE) COMPREHENSIVE (CONTRAST PRN) Routine 10/10/2024 12:09 PM EDT SOB (shortness of breath) ECG 12-LEAD Routine 08/22/2024 11:34 AM EDT SOB (shortness of breath) from Last 3 Months Results * ECHOCARDIOGRAM COMPREHENSIVE (10/10/2024 12:09 PM EDT) MV E' Septal Velocity 7.93 cm/s MV E' Septal Velocity Mean 7.93 cm/s MV E' Lateral Velocity 11.70 cm/s MV E' Lateral Velocity Mean 11.70 cm/s IVS (F:0.6-0.9, M:0.6-1.0) 1.1 cm IVS Mean (F:0.6-0.9, M:0.6-1.0) 1.1 cm LVOT peak leroy 0.9 m/s LVOT peak leroy mean 0.9 m/s LVIDD (F:3.8-5.2, M:4.2-5.8) 5.0 cm LVIDD Mean (F:3.8-5.2, M:4.2-5.8) 5.0 cm LVIDS (F:2.2-3.5, M:2.5-4.0) 2.9 cm LVIDS (F:2.2-3.5, M:2.5-4.0) 2.9 cm PW (F:0.6-0.9, M:0.6-1.0) 1.3 cm PW Mean (F:0.6-0.9, M:0.6-1.0) 1.3 cm Ao peak leroy 1.3 m/s Ao peak leroy mean 1.3 m/s E wave decelartion time 171 ms E wave decelartion time mean 171 ms MV Peak E-Wave 123.0 cm/s MV Peak E-Wave Mean 123.0 Centimeter Per Second TR Peak Leroy 2.4 m/s TR Peak Leroy Mean 2.3 m/s Sinuses of Valsalva 3.8 cm Sinuses of Valsalva Mean 3.8 cm Heart Rate 100 bpm BP Systolic 116 mmHg BP Diastolic 70 mmHg Height 72.00 inches Weight 288.00 lbs LV Mass Index (F:43-95, M:49-115) 94.0 g/m2 E/E' ratio 10.51 AV peak gradient 6.8 mmHg AV LVOT peak gradient 3.2 mmHg Sinuses of Valsalva Index 1.5 cm/m2 LV mass 233.7 g E/E' Average 13.0 E/E' Septal 15.5 E/E' Lateral 10.5 LV RWT 0.52 BSA 2.49 m2 TR Peak Gradient 23 mmHg Est. RA pres 3 mmHg RVSP 26 mmHg PASP 26.0 mmHg LA Volume Index (16-34) 38.3 mL/m2 Tapse 2.4 cm LA volume 95.2 mL Anatomical Region Laterality Modality Ultrasound Narrative 10/10/2024 2:55 PM EDT ?This is a technically limited study ?The left ventricle is normal in size. There is mild concentric hypertrophy. Left ventricular systolic function is normal with an estimated ejection fraction of 60-64%. No wall motion abnormalities are present. Diastolic function is indeterminate due to atrial fibrillation. ?Left atrial size is normal. ?There is mild mitral annular calcification. There is mild mitral regurgitation. ?The aortic valve is tricuspid. There is moderate aortic valve sclerosis without evidence of stenosis.There is no aortic regurgitation or stenosis. ?Right ventricular systolic function is normal. Normal tricuspid annular plane systolic excursion (TAPSE) >1.6 cm. ?The estimated right ventricular systolic pressure is normal at 26 mmHg. ?There is mild tricuspid regurgitation. The estimated right ventricular systolic pressure is normal at 26 mmHg. ?The aorta was not well visualized. The aortic root is mildly dilated at 3.8 cm (1.5 cm/m2). ?Compared to the report of the previous study on December 06, 2023, there is no significant change. Technical Details Overall the study quality was fair. The study was technically difficult. Left Ventricle The left ventricle is normal in size. There is mild concentric hypertrophy. Left ventricular systolic function is normal with an estimated ejection fraction of 60-64%. No wall motion abnormalities are present. Diastolic function is indeterminate due to atrial fibrillation. Right Ventricle The right ventricle is normal in size. Right ventricular systolic function is normal. Normal tricuspid annular plane systolic excursion (TAPSE) >1.6 cm. Left Atrium Left atrial size is normal. Right Atrium Right atrial size is normal. IVC is not seen or not well seen. Mitral Valve The mitral valve is structurally normal. There is mild mitral annular calcification. There is mild mitral regurgitation. Tricuspid Valve The tricuspid valve is structurally normal. There is mild tricuspid regurgitation. The estimated right ventricular systolic pressure is normal at 26 mmHg. Aortic Valve The aortic valve is tricuspid. There is moderate aortic valve sclerosis without evidence of stenosis.There is no aortic regurgitation or stenosis. Pulmonic Valve The pulmonic valve was not well visualized. Ascending Aorta The aorta was not well visualized. The aortic root is mildly dilated at 3.8 cm (1.5 cm/m2). Pericardium There is no pericardial effusion. Prior Study Compared to the report of the previous study on December 06, 2023, there is no significant change. Eric Suazo MD CV ECHO ORDERABLES Final Resu lt * ECG 12 lead (08/22/2024 11:34 AM EDT) Ventricular rate 83 BPM EKG [facility] QRS duration 148 ms EKG [facility] Q-T interval 384 ms [facility] QTC calculation (Bazett) 451 ms EKG [facility] R axis 91 degrees EKG [facility] T axis 45 degrees [facility] 08/22/2024 11:3 4 AM EDT Narrative EKG [facility] - 08/22/2024 11:45 AM EDT Atrial fibrillation with premature ventricular or aberrantly conducted complexes Right bundle branch block Abnormal ECG When compared with ECG of 26-Apr-2024 09:37, QRS axis Shifted right Minimal criteria for Inferior infarct are no longer Present Confirmed by MD Barth Usama ([id number]) on 08/22/2024 11:45:57 AM Procedure Note Eric Barth MD - 08/22/2024 Atrial fibrillation with premature ventricular or aberrantly conductedcomplexes Right bundle branch block Abnormal ECG When compared with ECG of 26-Apr-2024 09:37, QRS axis Shifted right Minimal criteria for Inferior infarct are no longer Present Confirmed by MD Barth Usama ([id number]) on 08/22/2024 11:45:57 AM Eric Suazo MD ECG ORDERABLES Final Result [facility] from Last 3 Months Insurance [employer] - [place] Advance Directives * Full Code (Latest Code Status on File) Date Activated Date Inactivated Comments 03/12/2024 8:07 AM Healthcare Agents on File Name Relationship Healthcare Agent Relationship Communication Holly Gonzáles Spouse 4. Next of Kin (Spouse, Adult Child, Parent, Adult Sibling, Grandparent) Care Teams Therapeutic Radiologist Relationship Specialty Start Date End Date Alton Lovelace MD [address] [place] [address] PCP - APNCT [employer] Attributed 06/01/22 Alton Lovelace MD [address] [place] [address] PCP - General Internal Medicine 12/16/23 Eric Barth MD [address] [place] [address] Primary Race Steward Cardiovascular Disease 12/24/23
--- OUTSIDE RECORDS SUMMARY | 2024-10-12 15:09 | XMS_ITS | Clinical Summary ---
Author Organization [facility] Address [address] [place] [address] Care Team Providers Care Silk Washing Machine Operator Name Role Phone Alton Lovelace MD Primary Care Provider [phone] Allergies Active Allergy Reactions Criticality Noted Date [...] this topic Medical Devices Implanted Type Area Specialist Physicians Device Identifier Shelf Expiration Date Model / Serial / Lot Lens Acrysof Iq Natrl 0d +22.5d L 13mm 6mm Acrylic 118.7 A - [id number] - [id number] Implanted:Qty: 1 on 11/10/2018 by Rashard Villalobos MD at [facility] Location Left: Eye [employer] 09/28/2022 [id number] / [id number] / Lens Acrysof 0d +23d L 13mm 6mm Acrylic 118.7 A - [id number] - [id number] Implanted:Qty: 1 on 11/16/2018 by Rashard Villalobos MD at [facility] Location Right: Eye [employer] 05/31/2022 [id number] / [id number] / Advance Directives For more information, please contact: [phone] Documents on File Type Date Recorded Patient Health Screener Expl anation Advance Directive and Living Will [...] the following way: Discussed . Care Teams Silk Washing Machine Operator Relationship Specialty Start Date End Date Alton Lovelace MD [address] [place] [address] PCP - General Internal Medicine 07/20/15
--- OUTSIDE RECORDS SUMMARY | 2024-10-12 15:10 | XMS_ITS | Clinical Summary ---
Author Organization [address] [facility] Address [address] [place] [address] Phone Care Team Providers Care Survey Methodologist Name Role Phone Alton Lovelace MD Primary Care Provider [phone] Allergies Active Allergy Reactions Criticality Noted Date Comments Adhesive Rash Low 11/05/2018 Paper tape okay Adhesive Tape-Silicones Rash Low 11/05/2018 Paper tape okay Furosemide Hives,Itching Medium 06/02/2023 Onion Nausea And Vomiting Low 11/05/2018 Medications albuterol HFA (PROAIR HFA ; PROVENTIL HFA ; VENTOLIN HFA) 90 mcg/actuation inhaler Inhale 2 puffs into the lungs 4 (four) times a day. 02/27/20 21 Active aspirin 81 mg EC tablet Take 81 mg by mouth daily. Active furosemide (LASIX) 20 mg tablet Take 1 tablet (20 mg total) by mouth daily. 04/07/20 22 Active furosemide (LASIX) 40 mg tablet Take 1 tablet (40 mg total) by mouth daily. 04/21/20 22 Active glucosamine/cho ndro major A/C/Mn (GLUCOSAMINE-CH ONDROIT-VIT C-MN ORAL) Take by mouth. Active magnesium oxide (MAG-OX) 400 mg (241.3 elemental magnesium) tablet Take 1 tablet (400 mg total) by mouth daily. Active rivaroxaban (XARELTO) 20 mg tablet Take 1 tablet (20 mg total) by mouth every evening. 01/28/20 21 Active spironolactone (ALDACTONE) 25 mg tablet Take 0.5 tablets (12.5 mg total) by mouth daily. 04/21/20 22 Active fluticasone-ume clidinium-vilan terol (Trelegy Ellipta) 200-62.5-25 mcg inhaler Take 1 puff by mouth daily. 02/27/20 21 Active zinc sulfate (ZINCATE) 220 mg (50 mg elemental zinc) capsule Take 1 capsule (220 mg total) by mouth daily. Active ascorbic acid (VITAMIN C) 250 mg tablet Take 500 mg by mouth daily. Active betamethasone dipropionate (DIPROSONE) 0.05 % cream APPLY TO PROBLEM AREAS TWICE DAILY NO LONGER THAN 2 WEEKS THEN DAILY NEEDED 08/14/19 24 Active bumetanide (BUMEX) 1 mg tablet Take 1 tablet (1 mg total) by mouth daily. 01/05/20 24 Active timolol (TIMOPTIC) 0.5 % ophthalmic solution MIX WITH MUPIROCIN OINTMENT AND SILVADENE CREAM AND APPLY MIXTURE TWICE DAILY TO LEG WOUNDS 10/17/19 24 Active hydrOXYzine pamoate (VistariL) 25 mg capsule Take 1 capsule (25 mg total) by mouth 3 (three) times a day if needed for itching for up to 10 days. 30 capsule 05/04/20 24 Active lidocaine (XYLOCAINE) 4 % external solution Apply topically 1 (one) time each day. 100 mL 1 06/21/19 25 Active dilTIAZem CD (CARDIZEM CD) 120 mg 24 hr capsule 08/23/19 25 Active gentamicin (GARAMYCIN) 0.1 % ointment Apply topically 1 (one) time each day. 30 g 10/06/19 25 Active metoprolol tartrate (LOPRESSOR) 50 mg tablet TAKE 1 TABLET BY MOUTH TWICE DAILY 01/14/20 22 025 Discontinued digoxin (LANOXIN) 125 mcg (0.125 mg) tablet Take 1 tablet (125 mcg total) by mouth daily. 08/18/19 24 025 Discontinued gentamicin (GARAMYCIN) 0.1 % ointment Apply topically 1 (one) time each day. 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 (CMS/HCC V24, CMS/HCC V28) 09/21/2024 Lymphedema 06/21/2024 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 ([facility] V24, CMS/HCC V28) 06/07/2024 Open wound of left lower leg 04/06/2024 Abnormal ECG 06/20/2022 Bilateral leg edema 06/20/2022 Hypertension 06/20/2022 Right bundle branch block 06/20/2022 Paroxysmal atrial fibrillation ([facility] V24, [facility] V28) 02/11/2021 Acute bilateral deep vein th rombosis (DVT) of femoral veins ([facility] V24, CMS/[facility] V28) 01/04/2021 DVT of lower extremity, bila teral ([facility] V24, [facility] V28) 01/04/2021 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 ([facility] V24, [facility] V28) 02/08/2018 Left ventricular hypertrophy 09/05/2016 Encounters Date Type Department Care Team Description 10/05/2024 1:00 PM EDT Office Visit [facility] [place] [address] [place] [address] Blossom Bradley PEPPER CUTTER 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 (CMS/HCC V24, [facility] V28) (Primary Dx); 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 ([facility] V24, CMS/HCC V28); Non-pressure chronic ulcer of other part of right lower leg with fat layer exposed (CMS/HCC V24, [facility] V28); Lymphedema 09/21/2024 12:45 PM EDT Office Visit [facility] [place] [address] [place] [address] Blossom Bradley PEPPER CUTTER 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 (CMS/HCC V24, CMS/HCC V28) (Primary Dx); 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 (CMS/HCC V24, CMS/HCC V28); Non-pressure chronic ulcer of other part of right lower leg with fat layer exposed (CMS/HCC V24, [facility] V28) 08/11/2024 1:59 PM EDT - 08/11/2024 11:59 PM EDT Hospital Encounter [facility] [address] [place] [phone] Pulmonary emphysema, unspecified emphysema type ([facility] V24, [facility] V28) Discharge Disposition: Home or Self Care 08/01/2024 2:30 PM EST Office Visit [facility] [place] [address] [place] [phone] Horace Beaver, DPM Open wound of left lower leg, subsequent encounter (Primary Dx) 07/19/2024 2:15 PM EST Office Visit [facility] [place] [facility] [place] [address] [place] [address] Blossom Bradley, PEPPER CUTTER 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 ([facility] V24, [facility] V28) (Primary Dx); 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 ([facility] V24, [facility] V28) from Last 3 Months Immunizations Name Administration Dates Next Due Moderna SARS-CoV-2 COVID-19, mRNA, LNP-S, preservative free 03/28/2021,08/06/2020,07/09/2020 Surgical History Surgery Date Site/Laterality Comments TOTAL KNEE ARTHROPLASTY Bilateral PROCEDURE:TOTAL KNEE ARTHROPLASTY HERNIA REPAIR Bilateral PROCEDURE:INGUINAL HERNIA REPAIR CATARACT EXTRACTION W/ INTRAOCULAR LENS IMPLANT 11/10/2018 Left PROCEDURE:CATARACT EXTRACTION W/ INTRAOCULAR LENS IMPLANT;COMMENT:Procedure: EXTRACTION CATARACT WITH IOL IMPLANT; Surgeon: Rashard Villalobos MD; [place] [facility]; Service: Ophthalmology; Laterality: Left; CATARACT EXTRACTION W/ INTRAOCULAR LENS IMPLANT 11/16/2018 Right PROCEDURE:CATARACT EXTRACTION W/ INTRAOCULAR LENS IMPLANT;COMMENT:Procedure: EXTRACTION CATARACT WITH IOL IMPLANT; Surgeon: Rashard Villalobos MD; [place] [facility]; Service: Ophthalmology; Laterality: Right; Medical History Medical History Date Comments Hypertension DX:Hypertension Abnormal ECG DX:Abnormal ECG Right bundle branch block DX:Rig ht bundle branch block History of cardiac catheterization 2011 DX:History of cardiac catheterization;COMMENT:No obstructive CAD Bilateral leg edema DX:Bilateral leg edema DVT (deep venous thrombosis) ([facility] V24, [facility] V28) DX:DVT (deep venous thrombos is) ([facility]) Mixed hyperlipidemia DX:Mixed hy perlipidemia Cataract DX:Cataract Atrial fibrillation ([facility] V24, [facility] V28) DX:Atrial fibrillation ([facility]) Family History Medical History Relation [...] Sign Reading Time Taken Comments Blood Pressure 126/61 10/05/2024 12:56 PM EDT Pulse 101 10/05/2024 12:56 PM EDT Temperature 36.8 ??C (98.3 ??F) 10/05/2024 12:56 PM E DT Respiratory Rate 16 10/05/2024 12:56 PM EDT Oxygen Saturation 97% 10/05/2024 12:56 PM EDT Inhaled Oxygen Concentration - - Weight 125 kg (275 lb) 12/28/2023 9:06 AM EDT Height 182.9 cm (6') 12/28/2023 9:08 AM EDT Body Mass Index 37.3 12/28/2023 9:06 AM EDT Plan of Treatment Upcoming Encounters Date Type Department Care Team (Late st Contact Info) Description 10/19/2024 1:00 PM EDT Office Visit [facility] [place] [address] [place] [phone] Blossom Bradley PEPPER CUTTER [address] [place] [address] Health Maintenance Due Date Last Done Comments DTaP,Tdap,and Td Vaccines (1 - Tdap) 1959 Pneumococcal Vaccine: 50+ Years (1 of 2 - PCV) 1959 Zoster Vaccines (1 of 2) 1990 RSV Immunization Adult Patients (1 - 1-dose 75+ series) 2015 Depression Screening 04/30/2022 Medicare Annual Wellness Visit 04/30/2022 Social Influencers of Health Screening 04/30/2022 COVID-19 Vaccine ( season) 2024 04/11/2024, 02/21/2023, 05/28/2022, Additional history exists Influenza Vaccine (Season Ended) 2025 Falls Risk Assessment 09/21/2025 09/21/2024 Hypertension/CHF/CAD Annual BMP Blood Test 10/05/2025 10/05/2024, 08/01/2024, 05/13/2024, Additional history exists Cholesterol Screening (Lipid Panel) 05/13/2029 05/13/2024, 06/09/2023, 09/10/2022, Additional history exists HIB Vaccines Aged Out [...] age to complete this topic Meningococcal B Vaccine Aged Out No l onger eligible based on patient's age to complete [...] Care Plan Impaired Tissue No Luca Rivas, RN Patient and Caregiver Understand Wound Care [...] On track( 024 3:43 PM EST) Luca rUias RN Note: Wound will be by 80% [...] Rivas RN Medical Devices Implanted Type Area Refrigeration Lead Device Identifier Shelf Expiration Date Model / Serial / Lot Lens Acrysof Iq Natrl 0d +22.5d L 13mm 6mm Acrylic 118.7 A - [id number] - [id number] Implanted:Qty: 1 on 11/10/2018 by Rashard Villalobos MD Left: Eye BRIDGER 09/28/2022 [id number] / [id number] / Lens Acrysof 0d +23d L 13mm 6mm Acrylic 118.7 A - [id number] - [id number] Implanted:Qty: 1 on 11/16/2018 by Rashard Villalobos MD Right: Eye BRIDGER 05/31/2022 [id number] / [id number] / Procedures Procedure Name Priority Date/Time Associated Diagnosis Comments BASIC METABOLIC PANEL Routine 10/05/2024 2:02 PM EDT Chronic kidney disease, unspecified DEBRIDEMENT Routine 09/21/2024 12:45 PM EDT 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 (CMS/HCC V24, CMS/HCC V28) Non-pressure chronic ulcer of other part of right lower leg with fat layer exposed (CMS/HCC V24, CMS/HCC V28) DEBRIDEMENT Routine 09/21/2024 12:45 PM EDT 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 (CMS/HCC V24, CMS/HCC V28) Non-pressure chronic ulcer of other part of right lower leg with fat layer exposed (CMS/HCC V24, CMS/HCC V28) URINALYSIS WITH REFLEX MICROSCOPIC Routine 08/01/2024 12:00 [...] 11:55 AM EST Chronic kidney disease, unspecified LIPID PANEL Routine 05/13/2024 11:47 AM EST Obesity, unspecified Atrial fibrillation (CMS/HCC V24, CMS/HCC V28) Body mass index 40.0-44.9, adult (CMS/HCC V24, CMS/HCC V28) 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 V24, CMS/HCC V28) Chronic kidney disease, unspecified Chronic systolic heart failure (CMS/HCC V24, CMS/HCC V28) Diabetic foot ulcer with osteomyelitis (CMS/HCC V24, CMS/HCC V28) from Last 3 Months or Most Recently Relevant to Health Maintenance Results * (ABNORMAL) Basic metabolic panel (10/05/2024 2:02 PM EDT) Sodium 136 135 - 145 mmol/L LAB CHEMISTRY METHOD 10/05/2024 8:01 PM EDT [facility] Potassium 5.4(H) 3.5 - 5.1 mmol/L LAB CHEMISTRY METHOD 10/05/2024 8:01 PM EDT [facility] Chloride 100 98 - 107 mmol/L LAB CHEMISTRY METHOD 10/05/2024 8:01 PM EDT [facility] CO2 25 24 - 32 mmol/L LAB CHEMISTRY METHOD 10/05/2024 8:01 PM EDT [facility] Anion Gap 11 5 - 14 LAB CHEMISTRY METHOD 10/05/2024 8:01 PM EDT [facility] Glucose 107 70 - 199 mg/dL LAB CHEMISTRY METHOD 10/05/2024 8:01 PM [facility] BUN 52(H) 9 - 20 mg/dL LAB CHEMISTRY METHOD 10/05/2024 8:01 PM [facility] Creatinine 2.00(H) 0.70 - 1.30 mg/dL LAB CHEMISTRY METHOD 10/05/2024 8:01 PM EDT [facility] eGFR 32(L) >=60 mL/min/1. 73m2 LAB CHEMISTRY METHOD 10/05/2024 8:01 PM T [facility] Comment:Calculation based on the Chronic Kidney Disease Epidemiology Collaboration (CKD-EPI) equation refit without adjustment for race. BUN/Creatinine Ratio 26.0(H) 12.0 - 20.0 LAB CHEMISTRY METHOD 10/05/2024 8:01 PM T [facility] Calcium 10.5(H) 8.4 - 10.2 mg/dL LAB CHEMISTRY METHOD 10/05/2024 8:01 PM [facility] Blood Venous blood specimen / Unknown Venipuncture / Unknown 10/05/2024 2:02 PM EDT 10/05/2024 2:02 PM EDT Blake Craig MD LAB BLOOD ORDERABL ES Final Result Performing Organization Address [facility]/State/ZIP Co de Phone Number [facility] [address] [place] [address], * Debridement Venous Ulcer Right Pretibial (09/21/2024 12:45 PM EDT) Blossom Franco NP - 09/21/2024 12:45 PM EDT Blossom Bradley NP ? 09/21/2024 ??3:29 PM Debridement Venous Ulcer Right Pretibial Performed by: Blossom Bradley NP Authorized by: Blossom Bradley NP ??Associated wounds: Wound Venous Ulcer 09/21/24 Pretibial Right Consent: ??Consent obtained: ??Written ??Consent given by: ??Patient ??Risks discussed: Yes ?? Time out: Immediately prior to the procedure a time out was called ?? Time out performed at: ??09/21/2024 2:13 PM Debridement Details: ??Performed by: ??PEPPER CUTTER ??Type: selective ?Pain control: ??Lidocaine 5% ??Pain control administration: topical anesthesia ?Severity of Tissue Pre Debridement: ??Fat layer exposed ??Severity of Tissue Post Debridement: ??Fat layer exposed ??Time taken: ??09/21/2024 1:15 PM ??Length (cm): ??2 ??Width (cm): ??4 ??Depth (cm): ??0.1 ??Area (cm^2): ??8 ??Time taken: ??09/21/2024 1:16 PM ??Length (cm): ??2 ??Width (cm): ??4 ??Depth (cm): ??0.1 ??Percent Debrided (%): ??100 ??Surface Area (cm^2): ??8 ??Area Debrided (cm^2): ??8 ??Volume (cm^3): ??0.8 ??Tissue and other material debrided: dermis and epidermis ?Devitalized tissue debrided: exudate and fibrin ?Instrument: ??Other ??Amount of bleeding: small ?Hemostasis obtained with: ??Pressure ??Procedural pain: ??2 ??Post-procedural pain: ??0 ??Response to treatment: ??Procedure was tolerated well us Blossom Bradley NP IN CLINIC/BEDSIDE ORDERABLES Final Result * Debridement Venous Ulcer Right Pretibial (09/21/2024 12:45 PM EDT) Narrative Blossom Bradley NP - 09/21/2024 12:45 PM EDT Blossom Bradley NP ? 09/21/2024 ??3:29 PM Debridement Venous Ulcer Right Pretibial Performed by: Blossom Bradley NP Authorized by: Blossom Bradley NP ??Associated wounds: Wound Venous Ulcer 09/21/24 Pretibial Right Consent: ??Consent obtained: ??Written ??Consent given by: ??Patient ??Risks discussed: Yes ?? Time out: Immediately prior to the procedure a time out was called ?? Time out performed at: ??09/21/2024 2:12 PM Debridement Details: ??Performed by: ??PEPPER CUTTER ??Type: selective ?Pain control: ??Lidocaine 5% ??Pain control administration: topical anesthesia ?Severity of Tissue Pre Debridement: ??Fat layer exposed ??Severity of Tissue Post Debridement: ??Fat layer exposed ??Time taken: ??09/21/2024 1:14 PM ??Length (cm): ??2 ??Width (cm): ??4 ??Depth (cm): ??0.1 ??Area (cm^2): ??8 ??Time taken: ??09/21/2024 1:15 PM ??Length (cm): ??2 ??Width (cm): ??4 ??Depth (cm): ??0.1 ??Percent Debrided (%): ??100 ??Surface Area (cm^2): ??8 ??Area Debrided (cm^2): ??8 ??Volume (cm^3): ??0.8 ??Tissue and other material debrided: dermis and epidermis ?Devitalized tissue debrided: exudate and fibrin ?Instrument: ??Other ??Other instrument: ??Gauze ??Amount of bleeding: small ?Hemostasis obtained with: ??Pressure ??Procedural pain: ??2 ??Post-procedural pain: ??0 ??Response to treatment: ??Procedure was tolerated well Blossom Bradley NP IN CLINIC/BEDSIDE ORDERABLES Final Result * (ABNORMAL) Urinalysis with reflex microscopic (08/01/2024 12:00 PM EST) Color, Urine Yellow Yellow, Colorless LAB URINALYSIS - AUTOMATED METHOD 08/01/2024 4:05 PM [facility] Clarity, Urine Clear Clear LAB URINALYSIS - AUTOMATED METHOD 08/01/2024 4:05 PM [facility] Specific [place] Urine 1.021 1.005 - 1.030 LAB URINALYSIS - AUTOMATED METHOD 08/01/2024 4:05 PM [facility] pH, Urine 5.0(A) 5.0 - 8.0 pH LAB URINALYSIS - AUTOMATED METHOD 08/01/2024 4:05 PM [facility] Leukocytes, Urine Negative Negative WBCs/mcL LAB URINALYSIS - AUTOMATED METHOD 08/01/2024 4:05 PM [facility] Nitrite, Urine Negative Negative LAB URINALYSIS - AUTOMATED METHOD 08/01/2024 4:05 PM [facility] Protein, Urine Negative Negative mg/dL LAB URINALYSIS - AUTOMATED METHOD 08/01/2024 4:05 PM [facility] Glucose, Urine Negative Negative mg/dL LAB URINALYSIS - AUTOMATED METHOD 08/01/2024 4:05 PM [facility] Ketones, Urine Negative Negative mg/dL LAB URINALYSIS - AUTOMATED METHOD 08/01/2024 4:05 PM [facility] Blood, Urine Negative Negative mg/dL LAB URINALYSIS - AUTOMATED METHOD 08/01/2024 4:05 PM EST [facility] Urine Urine specimen obtained by clean catch procedure / Unknown Non-blood Collection / Unknown 08/01/2024 12:00 PM EST 08/01/2024 12:00 PM EST us Blake Craig MD LAB URINE ORDERABL ES Final Result Performing Organization Address City/[facility]/ZIP Co de Phone Number [facility] [address] [place] [address], [place] [phone] * Protein, urine, random (08/01/2024 12:00 PM EST) Protein, Urine 15 >=14 mg/dL LAB CHEMISTRY METHOD 08/01/2024 6:25 PM EST [facility] Urine Urine specimen obtained by clean catch procedure / Unknown Non-blood Collection / Unknown 08/01/2024 12:00 PM EST 08/01/2024 12:00 PM EST us Blake Craig MD LAB URINE ORDERABL ES Final Result Performing Organization Address City/[facility]/ZIP Co de Phone Number [facility] [address] [place] [address], [place] [phone] * Creatinine, urine, random (08/01/2024 12:00 PM EST) Creatinine, Urine 153.0 mg/dL LAB CHEMISTRY METHOD 08/01/2024 5:19 PM EST [facility] Urine Urine specimen obtained by clean catch procedure / Unknown Non-blood Collection / Unknown 08/01/2024 12:00 PM EST 08/01/2024 12:00 PM EST Narrative [facility] - 08/01/2024 5:19 PM EST No reference range has been established for this assay (test result). us Blake Craig MD LAB URINE ORDERABL ES Final Result [facility] [address] [place] [address], * (ABNORMAL) Complete blood count (08/01/2024 11:55 AM EST) WBC 11.8(H) 4.0 - 10.5 K/mcL LAB HEMETOLOGY METHOD 08/01/2024 3:17 PM EST [facility] RBC 4.30(L) 4.70 - 6.00 M/mcL LAB HEMETOLOGY METHOD 08/01/2024 3:17 PM EST [facility] Hemoglobin 13.8 13.5 - 18.0 g/dL LAB HEMETOLOGY METHOD 08/01/2024 3:17 PM EST [facility] Hematocrit 41.5 40.0 - 54.0 % LAB HEMETOLOGY METHOD 08/01/2024 3:17 PM EST [facility] MCV 96.3 78.0 - 100.0 FL LAB HEMETOLOGY METHOD 08/01/2024 3:17 PM EST [facility] MCH 32.1 25.0 - 33.0 pcg LAB HEMETOLOGY METHOD 08/01/2024 3:17 PM EST [facility] MCHC 33.3 32.0 - 36.0 g/dL LAB HEMETOLOGY METHOD 08/01/2024 3:17 PM EST [facility] RDW 14.0 12.1 - 17.7 % LAB HEMETOLOGY METHOD 08/01/2024 3:17 PM EST [facility] Platelets 291 150 - 450 K/mcL LAB HEMETOLOGY METHOD 08/01/2024 3:17 PM EST [facility] MPV 8.2 7.4 - 11.4 FL LAB HEMETOLOGY METHOD 08/01/2024 3:17 PM [facility] Blood Venous blood specimen / Unknown Venipuncture / Unknown 08/01/2024 11:55 AM EST 08/01/2024 11:55 AM EST Blake Craig MD LAB BLOOD ORDERABL ES Final Result [facility] [address] [place] [address], * (ABNORMAL) Comprehensive metabolic panel (08/01/2024 11:55 AM EST) Sodium 137 135 - 145 mmol/L LAB CHEMISTRY METHOD 08/01/2024 8:22 PM [facility] Potassium 4.8 3.5 - 5.1 mmol/L LAB CHEMISTRY METHOD 08/01/2024 8:22 PM [facility] Chloride 102 98 - 107 mmol/L LAB CHEMISTRY METHOD 08/01/2024 8:22 PM [facility] CO2 24 24 - 32 mmol/L LAB CHEMISTRY METHOD 08/01/2024 8:22 PM [facility] Anion Gap 11 5 - 14 LAB CHEMISTRY METHOD 08/01/2024 8:22 PM [facility] Glucose 102 70 - 199 mg/dL LAB CHEMISTRY METHOD 08/01/2024 8:22 PM [facility] BUN 45(H) 9 - 20 mg/dL LAB CHEMISTRY METHOD 08/01/2024 8:22 PM [facility] Creatinine 2.00(H) 0.70 - 1.30 mg/dL LAB CHEMISTRY METHOD 08/01/2024 8:22 PM [facility] eGFR 32(L) >=60 mL/min/1. 73m2 LAB CHEMISTRY METHOD 08/01/2024 8:22 PM [facility] Comment:Calculation based on the??Chronic Kidney Disease Epidemiology Collaboration (CKD-EPI) equation refit??without adjustment for race. BUN/Creatinine Ratio 22.5(H) 12.0 - 20.0 LAB CHEMISTRY METHOD 08/01/2024 8:22 PM EST [facility] Calcium 9.6 8.4 - 10.2 mg/dL LAB CHEMISTRY METHOD 08/01/2024 8:22 PM [facility] AST (SGOT) 23 5 - 40 unit/L LAB CHEMISTRY METHOD 08/01/2024 8:22 PM [facility] ALT (SGPT) 23 7 - 52 unit/L LAB CHEMISTRY METHOD 08/01/2024 8:22 PM [facility] Alkaline Phosphatase 103 34 - 104 unit/L LAB CHEMISTRY METHOD 08/01/2024 8:22 PM [facility] Total Protein 7.3 6.4 - 8.5 g/dL LAB CHEMISTRY METHOD 08/01/2024 8:22 PM [facility] Albumin 3.8 3.5 - 5.0 g/dL LAB CHEMISTRY METHOD 08/01/2024 8:22 PM [facility] Total Bilirubin 0.4 0.3 - 1.0 mg/dL LAB CHEMISTRY METHOD 08/01/2024 8:22 PM [facility] Blood Venous blood specimen / Unknown Venipuncture / Unknown 08/01/2024 11:55 AM EST 08/01/2024 11:55 AM EST Blake Craig MD LAB BLOOD ORDERABL ES Final Result [facility] [address] [place] [address], [place] [phone] * (ABNORMAL) Lipid panel (05/13/2024 11:47 AM EST) Cholesterol 148 0 - 200 mg/dL LAB CHEMISTRY METHOD 05/13/2024 2:55 PM EST [facility] Triglycerides 177(H) <150 mg/dL LAB CHEMISTRY METHOD 05/13/2024 2:55 PM EST [facility] HDL 35 mg/dL LAB CHEMISTRY METHOD 05/13/2024 2:55 PM EST [facility] LDL Calculated 78 50 - 130 mg/dL LAB CHEMISTRY METHOD 05/13/2024 2:55 PM EST [facility] [facility] VLDL Cholesterol Efrain 35.4 mg/dL LAB CHEMISTRY METHOD 05/13/2024 2:55 PM EST [facility] Comment:No established refer ence range. Blood Venous blood specimen / Unknown Venipuncture / Unknown 05/13/2024 11:47 AM EST 05/13/2024 11:47 AM EST us Alton Lovelace MD LAB BLOOD ORDERABLES Final Res ult [facility] [address] [place] [address], from Last 3 Months or Most Recently Relevant to Health Maintenance Additional Health Concerns Active Problems Noted Date Diagnosed Date Impaired Tissue 04/06/2024 Education needed on impact of smoking on wound 1 06/06/2023 Education needed related to ulceration/compromised skin integrity. 04/06/2024 Insurance [facility] MEDICARE [facility] Care Teams Survey Methodologist Relationship Specialty Start Date End Date Alton Lovelace MD [address] [place] [address] PCP - General Internal Medicine 07/20/15
--- OUTSIDE RECORDS SUMMARY | 2024-10-12 15:10 | XMS_ITS | Encounter Summary ---
Author Organization [facility] Address [address] [place] [id number] Care Team Providers Care High Raw Sugar Boiler Name Role Phone Alton Lovelace MD Unavailable [phone] Alton Lovelace MD Primary Care Provider [phone] Eric Barth MD Unavailable [phone] Encounter Details Date Type Department Care Team (Latest Contact Info) Description 10/10/2024 Travel Social History Tobacco Use Types Packs/Day Years Used Date Smoking Tobacco: Some Days Cigarettes Smokeless Tobacco: Never Alcohol Use Standard Drinks/Week Comments Never 0 (1 standard drink = 0.6 oz pur e alcohol) [facility] Utilities Answer Date Recorded In the past 12 months has [employer], gas, oil, or water [employer] threatened to shut off services in your [...] place to sleep or slept in a snf (including now)? No 03/14/2024 Sex and Gender [...] Description 11/22/2024 1:00 PM EDT Office Visit [facility] [address] [phone] Eric Barth MD 7 [facility] [address] [place] [address] documented as of this encounter Visit Diagnoses Not on filedocumented in this encounter Care Teams High Raw Sugar Boiler Relationship Specialty Start Date End Date Alton Lovelace MD [address] [place] [address] PCP - APNCT [employer] Attributed 06/01/22 Alton Lovelace MD [address] [place] [address] PCP - General Internal Medicine 12/16/23 Eric Barth MD [address] [place] [address] Primary Interactive Project Manager Cardiovascular Disease 12/24/23 documented as of this encounter
--- OUTSIDE RECORDS SUMMARY | 2024-10-12 15:10 | XMS_ITS ---
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 ([facility] [place], [facility] V28) 06/07/2024 Open wound of left lower leg 04/06/2024 Abnormal ECG 06/20/2022 Bilateral leg edema 06/20/2022 Hypertension 06/20/2022 Right bundle branch block 06/20/2022 Paroxysmal atrial fibrillation ([facility] V24, [facility] V28) 02/11/2021 Acute bilateral deep vein th rombosis (DVT) of femoral veins ([facility] V24, [facility] V28) 01/04/2021 DVT of lower extremity, bila teral ([facility] V24, [facility] V28) 01/04/2021 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
== END 2024-10-12 15:27 | disposition home or self-care (01) ==
LOC: HO.HKAE 15:07
PROVIDERS: PCP Internal Medicine; Visit Provider Internal Medicine Hypertension Specialist
DX: N18.9 Chronic kidney disease, unspecified (principal)
CPT/HCPCS: 99214

== ENCOUNTER → 2024-10-12 15:07 | Outpatient (BNVA) | payer MEDICARE, SELFPAY | PROVIDERS: PCP Internal Medicine; Visit Provider Internal Medicine Hypertension Specialist | DX: I12.9 Hypertensive chronic kidney disease with stage 1 through stage 4 chronic kidney disease, or unspecified chronic kidney disease (principal); N18.9 Chronic kidney disease, unspecified; F17.210 Nicotine dependence, cigarettes, uncomplicated | CPT/HCPCS: 99212 ==

== ENCOUNTER 2024-12-28 15:06 | Outpatient (AMB) | payer MEDICARE, SELFPAY ==
--- OUTSIDE RECORDS SUMMARY | 2024-12-23 11:15 | XMS_ITS | Encounter Summary ---
Author Organization [facility] Address [address] [place] [address] Care Team Providers Care Talent Scout Name Role Phone Alton Lovelace MD Primary Care Provider [phone] Encounter Details Date Type Department Care Team (Late st Contact Info) Description 12/23/2024 11:15 AM EDT Home Care Visit [facility] [address] [place] [phone] Kristen Mehta, LAUREN PT HOME VISIT Social History Tobacco Use Types Packs/Day Years Used Date Smoking Tobacco: Every Day Cigarettes Smokeless Tobacco: Never Alcohol Use Standard Drinks/Week Comments No 0 (1 standard drink = 0.6 oz pur e alcohol) Food Risk Answer Date Recorded Within the past 12 months we worried whether our food would run out before we got money to buy more. Never true 11/09/2024 Within the past 12 months th e food we bought just didn't last and we didn't have money to get more. Never true 11/09/2024 Interpersonal Safety Answer Date Record ed Physical Abuse 11/06/2024 Verbal Abuse 11/06/2024 Sex and Gender Information Value Date Recorded Sex Assigned at Male 08/10/2024 12:29 PM EDT Legal Sex Male 2:24 PM EST Gender Identity Male 08/10/2024 12:29 PM EDT Sexual Orientation Straight 08/10/2024 12 :29 PM EDT documented as of this encounter Last Filed Vital Signs Vital Sign Reading Time Taken Comments Blood Pressure 102/60 12/23/2024 11:54 AM EDT Pulse 99 12/23/2024 11:54 AM EDT Temperature 36.2 C (97.2 F) 12/23/2024 11:54 AM EDT Respiratory Rate 18 12/23/2024 11:54 AM EDT Oxygen Saturation 99% 12/23/2024 11:54 AM EDT Inhaled Oxygen Concentration - - Weight - - Height - - Body Mass Index - - documented in this encounter Progress Notes * Kristen Mehta PT - 12/23/2024 12:03 PM EDTReporting currently patient HR 100 and BP 102/60. Patient reports fatigue also did not sleep well last night. Patient reports feeling breathless when going to the bathroom. Reports no issues with urination. * Kristen Mehta PT - 12/23/2024 11:48 AM EDT RV (SNAPSHOT) Patient identifiers that were used prior to today's visit (at least two identifiers) were: Patient name and Visual recognition Today's visit summary/education/procedures provided: Patient sitting in recliner when arrived. Patient performed seated ther ex with minimal cueing to complete task. Patient performed sit/stand transfers x5 with supervision. Patient ambulated 50 feet with rollator and SBA. Patient demonstrated increased resipriation rate. Patient educated to importance of breathing techniques and hydration. Patient to trial car transfer next visit. Plan for next revisit/focused assessment/education/procedures due: Continue strengthening, endurance and gait training Discharge plannin/1 MD appointment: 12/28 kidney documented in this encounter Plan of Treatment Upcoming Encounters Date Type Department Care Team (Late st Contact Info) Description 12/29/2024 10:00 AM EDT Appointment [facility] [address] [place] [address] [address] [place] [phone] Kristen Mehta, PT documented as of this encounter Goals Goal [...] filedocumented in this encounter Additional Health Concerns Active Problems Noted Date Diagnosed Date Impaired Tissue 04/06/2024 Education needed on impact of smoking on wound 1 06/06/2023 Education needed related to ulceration/compromised skin integrity. 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 11/06/2024 documented as of this encounter Home Health Visit - Care Plan Visit Details Visit Type -PT Home Visit Discipline -Physical Therapy Problems Problem Start Date Status Goals Interventions Alteration in Cardiopulmonary Status Disciplines: PT 11/18/2024 Active 1 goal linked to scheduled/documented intervention 1 goal intervention scheduled/documented in this visit Knowledge Deficits (PT) Disciplines: PT 11/18/2024 Active 1 goal linked to scheduled/documented intervention Gait Deficit Disciplines: PT 11/18/2024 Active 1 goal linked to scheduled/documented intervention 1 goal intervention scheduled/documented in this visit Decreased Strength Disciplines: PT 11/18/2024 Active 1 goal linked to scheduled/documented intervention 1 goal intervention scheduled/documented in this visit Home Exercise Program (PT) Disciplines: PT 11/18/2024 Active 1 goal linked to scheduled/documented intervention 1 goal intervention scheduled/documented in this visit Goals Goal Associated Problem Outcome Goal Met? Visit Notes Patient demonstrates increased cardiopulmonary status through exercise Alteration in Cardiopulmonary Status Progressing No Patient demonstrates understanding of physical therapy precautions Knowledge Deficits (PT) Progressing No Patient improves ambulation and quality of gait Gait Deficit Progressing No Patient to increase strength to improve functional activity Decreased Strength Progressing No Patient performs home exercise program (PT) Home Exercise Program (PT) Progressing No Interventions Intervention Associated Problem/Goal Status Variance Visit Notes Patient Education - Cardio (PT) Problem:Alteration in Cardiopulmonary Status Goal:Patient demonstrates increased cardiopulmonary status through exercise Completed - Reviewed weight log. Physician notification not needed this visit. Instructed patient on complications related to cardiovascular disorder/disease including: - Importance of weight monitoring daily via a weight log and use of the same scale when obtaining weights including the need to report weight changes of 2 or more pounds in a day or 5 pounds or more in a week (unless otherwise specified by physician). Gait Deficit (PT) Problem:Gait Deficit Goal:Patient improves ambulation and quality of gait Completed - Patient performed gait training 60 (distance) feet without gait belt and with supervision using rollator with verbal/tactile cues for breathing. Decreased Strength Problem:Decreased Strength Goal:Patient to increase strength to improve functional activity Completed Patient performed strengthening exercises including seated exercises 1 sets of 15 repetitions. Patient return demonstrated strengthening exercises with 75% accuracy. Home Exercise Program (PT) Problem:Home Exercise Program (PT) Goal:Patient performs home exercise program (PT) Completed - Instructed patient in existing home exercise program including seated exercises to be performed at daily frequency. - Patient return demonstrated home exercise program with 75% accuracy. documented in this encounter Care Teams Talent Scout Relationship Specialty Start Date End Date Alton Lovelace MD [address] [place] [address] PCP - General Internal Medicine 07/20/15 documented as of this encounter
--- NOTE | 2024-12-28 15:30 | HO.NEPHOV ---
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 Required: No Accompanied by: Spouse Allergies adhesive tape Allergy (Unknown, Verified 12/28/24 15:34) Hives furosemide Allergy (Unknown, Verified 12/28/24 15:34) Hives onion Allergy (Unknown, Verified 12/28/24 15:34) Hives Medication List - Last Reconciled 12/28/24 by Blake Craig MD albuterol sulfate 90 mcg/actuation 2 inhalations inhalation Q4-6H PRN ascorbic acid (vitamin C) 500 mg PO DAILY aspirin 81 mg PO DAILY benzonatate mg PO DAILY PRN bumetanide 1 mg PO BID PRN diltiazem HCl CD 120 mg PO DAILY lljchviobps-lbplxaqgw-nhlxztwr 100-62.5-25 mcg (Trelegy Ellipta) 1 ea inhalation DAILY glucosamine sulfate (Glucosamine) 500 mg PO DAILY magnesium oxide 500 mg PO DAILY melatonin 5 mg PO PRN mupirocin calcium 2% appl topical rivaroxaban (Xarelto) 20 mg PO DAILY silver sulfadiazine 1% (SSD) appl topical spironolactone 25 mg PO DAILY zinc acetate (Galzin) 50 mg PO DAILY HPI Comments Details: 84-year-old man with a history of longstanding hypertension congestive heart failure and COPD has been referred for evaluation of chronic kidney disease. Serum creatinine has been staying between 1.4 and 1.6 mg/dL. He was hospitalized at [facility] for COPD. He was on high dose of diuretics which was lowered due to low blood pressure. He also has a history of abdominal aortic aneurysm measuring 4.4 cm. He was seen by vascular surgery. History of chronic venous insufficiency with stasis dermatitis. He is currently being treated by the wound clinic Today was accompanied by his . Jose has history of chronic smoked for several years. He says he still smokes 1 or 2 cigarettes a day. Interestingly he says that he is able to breathe better when he smokes.!! No urinary symptoms like dysuria urgency increased frequency. He has shortness of breath on exertion no chest pain. No nausea or vomiting. 08/24/24 Gained 6 lbs Bumex was doubled for a week. Work in progress for dyspnea including pulm evaluation Still smokes. 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 Right bundle branch block (RBBB) Atrial fibrillation DVT (deep venous thrombosis) Emphysema lung Mixed hyperlipidemia Essential hypertension Secondary hypercoagulable state Chronic systolic (congestive) heart failure 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 Diabetic foot ulcers Non-pressure chronic ulcer of skin of other sites with unspecified severity Chronic kidney disease, stage 2 (mild) Surgical History History of knee surgery (~2013) History of hernia repair Physical Exam Vital Signs: Last Vital Signs Pulse 118 H 12/28/24 15:31 BP 112/70 12/28/24 15:31 Pulse Ox 94 12/28/24 15:31 Oxygen Delivery Method Room Air 12/28/24 15:31 BMI result Body Mass Index 39.3 Const Nutritional Appearance: obese Neck Neck: Yes supple Resp Auscultation: rhonchi Cardio Palpation: no palpable S3 Heart sounds: no rubs GI Palpation (GI): Soft to palpation Auscultation: normal bowel sounds Neuro Motor exam (neuro): no asterixis Extrem General: Yes edema Assessment & Plan Assessment & Plan (1) CKD (chronic kidney disease): Code(s): N18.9 - Chronic kidney disease, unspecified Category: Medical Plan Elderly man with a history of longstanding COPD hypertension and congestive heart failure has stage 3 chronic kidney disease. 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 Bump in creatinine due to hypoperfusion. Recent urine sediments were bland therefore glomerular nephritis or interstitial disease seem unlikely. Recommendations Low-sodium diet Continue current dose of diuretics. Continue to avoid nephrotoxic agents including NSAIDs. Optimize blood pressure and continue to avoid hypotension. workup for CKD ; renal ultrasonogram- No hydronephrosis. Renal function is stable Creatinine unchanged at 2.0 Mild hyperkalemia in a setting of CKD and SPironolactone He has been eating more Tomatoes/potatoes. Discussed low K diet If K remains persistently elevated >5.5, despite dietary restriction, would add Lokelma 12/28/24 REcent Cr is 1.9 and stable Potassium at 5.0 No changes made today Orders: Orders Basic Metabolic Panel 3 Months N18.9 - Chronic kidney disease, unspecified Coding Level of Care Code Est Pt Level 4 (58666) Diagnoses CKD (chronic kidney disease) N18.9
[2024-12-28 15:31] VITALS: BP 112/70; PULSE 118; O2SAT 94; BMI 39.3
--- OUTSIDE RECORDS SUMMARY | 2024-12-28 15:49 | XMS_ITS ---
Author Name [facility] Organization Unknown Results Test Name/Text Value Interpretation Date Range Source Calcium SerPl-mCnc 8.5 mg/dL 5 8.4 - 10.2 [facility] AST SerPl-cCnc 18.0 unit/L 5 5 - 40 [facility] Prot SerPl-mCnc 6.8 g/dL 5 6.4 - 8.5 [facility] BUN/Creat SerPl 21.4 Above high normal 02 5 12 - 20 [facility] Potassium SerPl-sCnc 4.5 mmol/L 5 3.5 - 5.1 [facility] CO2 SerPl-sCnc 22.0 mmol/L Below low normal 5 24 - 32 [facility] Bilirub SerPl-mCnc 0.4 mg/dL 5 0.3 - 1 [facility] Sodium SerPl-sCnc 139.0 mmol/L 5 135 - 145 [facility] BUN SerPl-mCnc 28.0 mg/dL Above high normal 11/11/19 2 5 9 - 20 [facility] ALT SerPl-cCnc 17.0 unit/L 5 7 - 52 [facility] Albumin SerPl-mCnc 3.3 g/dL Below low normal 11/10 5 3.5 - 5 [facility] Creat SerPl-mCnc 1.31 mg/dL Above high normal 5 0.7 - 1.3 [facility] ALP SerPl-cCnc 72.0 unit/L 5 34 - 104 [facility] Chloride SerPl-sCnc 108.0 mmol/L Above high normal 5 98 - 107 [facility] eGFRcr SerPlBld CKD-EPI 2020 54.0 mL/min/1.73m2 Below low normal 5 - [facility] Glucose SerPl-mCnc 89.0 mg/dL 5 70 - 199 [facility] Anion Gap SerPl Calc-sCnc 9.0 5 5 - 14 [facility] WBC # Bld Auto 7.9 K/mcL 5 4 - 10.5 [facility] RDW RBC Auto 13.9 % 5 12.1 - 17.7 [facility] Basophils NFr Bld Auto 1.4 % 5 0 - 2 [facility] Hgb Bld-mCnc 12.7 g/dL Below low normal 5 13.5 - 18 [facility] Platelet # Bld Auto 259.0 K/mcL 11/11/19 2 5 150 - 450 [facility] Monocytes # Bld Auto 0.85 K/mcL Above high normal 5 0 - 0.8 [facility] Neutrophils NFr Bld Auto 61.1 % 5 44 - 74 [facility] Hct VFr Bld Auto 38.8 % Below low normal 02 5 40 - 54 [facility] MCHC RBC Auto-EntMCnc 32.7 g/dL 5 32 - 36 [facility] Lymphocytes NFr Bld Auto 14.8 % Below low normal 5 20 - 48 [facility] Eosinophil # Bld Auto 0.89 K/mcL Above high normal 5 0 - 0.5 [facility] PMV Bld Auto 8.8 FL 5 7.4 - 11.4 [facility] Lymphocytes # Bld Auto 1.17 K/mcL 5 1 - 3.2 [facility] Monocytes NFr Bld Auto 10.7 % 5 2 - 12 [facility] Basophils # Bld Auto 0.11 K/mcL 5 0 - 0.2 [facility] RBC # Bld Auto 3.94 M/mcL Below low normal 5 4.7 - 6 [facility] RBC Auto 98.5 FL 5 78 - 100 [facility] Eosinophil NFr Bld Auto 11.2 % Above high normal 5 0 - 6 [facility] Neutrophils # Bld Auto 4.85 K/mcL 5 1.8 - 7.8 [facility] MCH RBC Qn Auto 32.2 pcg 5 25 - 33 [facility] Vancomycin Trough SerPl-mCnc 10.4 mcg/mL 5 10 - 20 [facility] Sodium SerPl-sCnc 138.0 mmol/L 5 135 - 145 [facility] Potassium SerPl-sCnc 4.5 mmol/L 5 3.5 - 5.1 [facility] Chloride SerPl-sCnc 108.0 mmol/L Above high normal 5 98 - 107 [facility] Albumin SerPl-mCnc 3.4 g/dL Below low normal 11/09 5 3.5 - 5 [facility] Calcium SerPl-mCnc 8.6 mg/dL 5 8.4 - 10.2 [facility] ALP SerPl-cCnc 66.0 unit/L 5 34 - 104 [facility] CO2 SerPl-sCnc 22.0 mmol/L Below low normal 5 24 - 32 [facility] Bilirub SerPl-mCnc 0.5 mg/dL 5 0.3 - 1 [facility] BUN/Creat SerPl 22.3 Above high normal 02 5 12 - 20 [facility] BUN SerPl-mCnc 29.0 mg/dL Above high normal 11/10/19 2 5 9 - 20 [facility] AST SerPl-cCnc 15.0 unit/L 5 5 - 40 [facility] Anion Gap SerPl Calc-sCnc 8.0 5 5 - 14 [facility] ALT SerPl-cCnc 14.0 unit/L 5 7 - 52 [facility] eGFRcr SerPlBld CKD-EPI 2020 54.0 mL/min/1.73m2 Below low normal 5 - [facility] Creat SerPl-mCnc 1.3 mg/dL 5 0.7 - 1.3 [facility] Prot SerPl-mCnc 6.9 g/dL 5 6.4 - 8.5 [facility] Glucose SerPl-mCnc 99.0 mg/dL 5 70 - 199 [facility] Monocytes # Bld Auto 1.0 K/mcL Above high normal 5 0 - 0.8 [facility] MCHC RBC Auto-EntMCnc 32.7 g/dL 5 32 - 36 [facility] Lymphocytes NFr Bld Auto 9.4 % Below low normal 5 20 - 48 [facility] Eosinophil NFr Bld Auto 9.2 % Above high normal 5 0 - 6 [facility] Eosinophil # Bld Auto 0.85 K/mcL Above high normal 5 0 - 0.5 [facility] RBC Auto 97.1 FL 5 78 - 100 [facility] RBC # Bld Auto 3.81 M/mcL Below low normal 5 4.7 - 6 [facility] Lymphocytes # Bld Auto 0.87 K/mcL Below low normal 5 1 - 3.2 [facility] Basophils # Bld Auto 0.11 K/mcL 5 0 - 0.2 [facility] Hct VFr Bld Auto 37.0 % Below low normal 02 5 40 - 54 [facility] Neutrophils # Bld Auto 6.36 K/mcL 5 1.8 - 7.8 [facility] Basophils NFr Bld Auto 1.2 % 5 0 - 2 [facility] PMV Bld Auto 9.0 FL 5 7.4 - 11.4 [facility] RDW RBC Auto 14.0 % 5 12.1 - 17.7 [facility] MCH RBC Qn Auto 31.8 pcg 5 25 - 33 [facility] Monocytes NFr Bld Auto 10.8 % 5 2 - 12 [facility] Hgb Bld-mCnc 12.1 g/dL Below low normal 5 13.5 - 18 [facility] WBC # Bld Auto 9.3 K/mcL 5 4 - 10.5 [facility] Platelet # Bld Auto 256.0 K/mcL 11/10/19 2 5 150 - 450 [facility] Neutrophils NFr Bld Auto 68.8 % 5 44 - 74 [facility] Glucose Bld-mCnc 132.0 mg/dL 5 70 - 199 [facility] Calcium SerPl-mCnc 8.7 mg/dL 5 8.4 - 10.2 [facility] BUN SerPl-mCnc 36.0 mg/dL Above high normal 11/09/19 2 5 9 - 20 [facility] CO2 SerPl-sCnc 22.0 mmol/L Below low normal 5 24 - 32 [facility] Anion Gap SerPl Calc-sCnc 8.0 5 5 - 14 [facility] eGFRcr SerPlBld CKD-EPI 2020 45.0 mL/min/1.73m2 Below low normal 5 - [facility] Glucose SerPl-mCnc 96.0 mg/dL 5 70 - 199 [facility] Prot SerPl-mCnc 6.8 g/dL 5 6.4 - 8.5 [facility] Albumin SerPl-mCnc 3.4 g/dL Below low normal 11/08 5 3.5 - 5 [facility] Chloride SerPl-sCnc 107.0 mmol/L 11/09/19 2 5 98 - 107 [facility] AST SerPl-cCnc 15.0 unit/L 5 5 - 40 [facility] Potassium SerPl-sCnc 4.5 mmol/L 5 3.5 - 5.1 [facility] ALP SerPl-cCnc 62.0 unit/L 5 34 - 104 [facility] BUN/Creat SerPl 23.7 Above high normal 02 5 12 - 20 [facility] Sodium SerPl-sCnc 137.0 mmol/L 5 135 - 145 [facility] Creat SerPl-mCnc 1.52 mg/dL Above high normal 5 0.7 - 1.3 [facility] Bilirub SerPl-mCnc 0.5 mg/dL 5 0.3 - 1 [facility] ALT SerPl-cCnc 12.0 unit/L 5 7 - 52 [facility] Neutrophils # Bld Auto 6.61 K/mcL 5 1.8 - 7.8 [facility] Basophils # Bld Auto 0.08 K/mcL 5 0 - 0.2 [facility] Basophils NFr Bld Auto 0.8 % 5 0 - 2 [facility] MCHC RBC Auto-EntMCnc 33.1 g/dL 5 32 - 36 [facility] Neutrophils NFr Bld Auto 67.5 % 5 44 - 74 [facility] Lymphocytes NFr Bld Auto 12.6 % Below low normal 5 20 - 48 [facility] Monocytes # Bld Auto 1.13 K/mcL Above high normal 5 0 - 0.8 [facility] PMV Bld Auto 9.0 FL 5 7.4 - 11.4 [facility] Platelet # Bld Auto 233.0 K/mcL 11/09/19 2 5 150 - 450 [facility] Hct VFr Bld Auto 35.9 % Below low normal 02 5 40 - 54 [facility] MCH RBC Qn Auto 32.1 pcg 5 25 - 33 [facility] RBC Auto 96.8 FL 5 78 - 100 [facility] RDW RBC Auto 14.2 % 5 12.1 - 17.7 [facility] Eosinophil # Bld Auto 0.69 K/mcL Above high normal 5 0 - 0.5 [facility] RBC # Bld Auto 3.71 M/mcL Below low normal 5 4.7 - 6 [facility] Hgb Bld-mCnc 11.9 g/dL Below low normal 5 13.5 - 18 [facility] Monocytes NFr Bld Auto 11.5 % 5 2 - 12 [facility] WBC # Bld Auto 9.8 K/mcL 5 4 - 10.5 [facility] Lymphocytes # Bld Auto 1.23 K/mcL 5 1 - 3.2 [facility] Eosinophil NFr Bld Auto 7.0 % Above high normal 5 0 - 6 [facility] Troponin I SerPl HS-mCnc 8.0 ng/L 5 0 - 20 [facility] L pneumo Ag Ur Ql IA Negative 5 - [facility] S pneum Da 10A IgG Ser-mCnc 2.2 mcg/mL 5 - [facility] S pneum Da 6B IgG Ser-mCnc 0.5 mcg/mL 5 - [facility] S pneum Da 33F IgG Ser-mCnc 0.8 mcg/mL 5 - [facility] S pneum Da 12F IgG Ser-mCnc 0.5 mcg/mL 5 - [facility] S pneum Da 23F IgG Ser-mCnc 0.3 mcg/mL 5 - [facility] S pneum Da 18C IgG Ser-mCnc 2.4 mcg/mL 5 - [facility] S pneum Da 22F IgG Ser-mCnc 0.4 mcg/mL 5 - [facility] S pneum Da 20A IgG Ser-mCnc 1.3 mcg/mL 5 - [facility] S pn Da sero 19F IgG Ser-mCnc 2.7 mcg/mL 5 - [facility] S pneum Da 17F IgG Ser-mCnc 1.1 mcg/mL 5 - [facility] S pneum Da 9N IgG Ser-mCnc 1.4 mcg/mL 5 - [facility] S pneum Da 14 IgG Ser-mCnc 0.9 mcg/mL 5 - [facility] S pneum Da 15B IgG Ser-mCnc 5.3 mcg/mL 5 - [facility] S pneum Da 5 IgG Ser-mCnc 1.4 mcg/mL 5 - [facility] S pneum Da 9V IgG Ser-mCnc 0.6 mcg/mL 5 - [facility] S pneum Da 2 IgG Ser-mCnc 0.4 mcg/mL 5 - [facility] S pneum Da 8 IgG Ser-mCnc 0.6 mcg/mL 5 - [facility] S pneum Da 11A IgG Ser-mCnc 0.6 mcg/mL 5 - [facility] S pneum Da 7F IgG Ser-mCnc 1.1 mcg/mL 5 - [facility] [employer] review SEE BELOW 11/15/19 2 5 [facility] S pneum Da 4 IgG Ser-mCnc 0.1 mcg/mL 5 - [facility] S pneum Da 19A IgG Ser-mCnc 1.8 mcg/mL 5 - [facility] S pneum Da 3 IgG Ser-mCnc 0.1 mcg/mL 5 - [facility] S pneum Da 1 IgG Ser-mCnc 0.2 mcg/mL 5 - [facility] AST SerPl-cCnc 15.0 unit/L 5 5 - 40 [facility] BUN SerPl-mCnc 43.0 mg/dL Above high normal 11/08/19 2 5 9 - 20 [facility] Anion Gap SerPl Calc-sCnc 8.0 5 5 - 14 [facility] Sodium SerPl-sCnc 138.0 mmol/L 5 135 - 145 [facility] Potassium SerPl-sCnc 4.3 mmol/L 5 3.5 - 5.1 [facility] Prot SerPl-mCnc 6.9 g/dL 5 6.4 - 8.5 [facility] Bilirub SerPl-mCnc 0.8 mg/dL 5 0.3 - 1 [facility] BUN/Creat SerPl 24.6 Above high normal 02 5 12 - 20 [facility] Creat SerPl-mCnc 1.75 mg/dL Above high normal 5 0.7 - 1.3 [facility] eGFRcr SerPlBld CKD-EPI 2020 38.0 mL/min/1.73m2 Below low normal 5 - [facility] ALT SerPl-cCnc 13.0 unit/L 5 7 - 52 [facility] Calcium SerPl-mCnc 9.0 mg/dL 5 8.4 - 10.2 [facility] Albumin SerPl-mCnc 3.5 g/dL 5 3.5 - 5 [facility] Glucose SerPl-mCnc 107.0 mg/dL 5 70 - 199 [facility] Chloride SerPl-sCnc 106.0 mmol/L 11/08/19 2 5 98 - 107 [facility] ALP SerPl-cCnc 64.0 unit/L 5 34 - 104 [facility] CO2 SerPl-sCnc 24.0 mmol/L 5 24 - 32 [facility] Eosinophil NFr Bld Auto 4.0 % 5 0 - 6 [facility] WBC # Bld Auto 10.0 K/mcL 5 4 - 10.5 [facility] Basophils NFr Bld Auto 0.9 % 5 0 - 2 [facility] Platelet # Bld Auto 231.0 K/mcL 11/08/19 2 5 150 - 450 [facility] MCH RBC Qn Auto 32.5 pcg 5 25 - 33 [facility] Monocytes # Bld Auto 1.03 K/mcL Above high normal 5 0 - 0.8 [facility] Neutrophils NFr Bld Auto 71.2 % 5 44 - 74 [facility] RBC Auto 97.0 FL 5 78 - 100 [facility] Lymphocytes NFr Bld Auto 13.1 % Below low normal 5 20 - 48 [facility] Neutrophils # Bld Auto 7.11 K/mcL 5 1.8 - 7.8 [facility] Lymphocytes # Bld Auto 1.31 K/mcL 5 1 - 3.2 [facility] PMV Bld Auto 9.3 FL 5 7.4 - 11.4 [facility] MCHC RBC Auto-EntMCnc 33.5 g/dL 5 32 - 36 [facility] Eosinophil # Bld Auto 0.4 K/mcL 5 0 - 0.5 [facility] Monocytes NFr Bld Auto 10.3 % 5 2 - 12 [facility] Hgb Bld-mCnc 11.8 g/dL Below low normal 5 13.5 - 18 [facility] RDW RBC Auto 14.2 % 5 12.1 - 17.7 [facility] Hct VFr Bld Auto 35.2 % Below low normal 02 5 40 - 54 [facility] Basophils # Bld Auto 0.09 K/mcL 5 0 - 0.2 [facility] RBC # Bld Auto 3.63 M/mcL Below low normal 5 4.7 - 6 [facility] HCO3 BldV-sCnc 24.4 mmol/L 5 [facility] SaO2 % BldV 78.5 % 5 [facility] pO2 BldV 41.0 mmHg 5 [facility] Base excess BldV Calc-sCnc 0.0 mmol/L 5 [facility] pH BldV 7.4 pH 5 7.35 - 7.45 [facility] pCO2 BldV 40.0 mmHg 5 [facility] LACTIC ACID 1.5 mmol/L 5 - [facility] MRB mecC Islt/Spm Ql Detected Abnormal 5 - [facility] LACTIC ACID 1.7 mmol/L 5 - [facility] Hyaline Casts #/area UrnS LPF 1.0 /LPF 5 - 5 [facility] Squamous #/area UrnS HPF 1.0 /HPF 5 0 - 5 [facility] RBC #/area UrnS HPF 7.0 /HPF Above high normal 5 0 - 3 [facility] WBC #/area UrnS HPF 0.0 /HPF 11/07/19 2 5 0 - 5 [facility] Bacteria #/area UrnS HPF 1+ Abnormal 5 - [facility] Glucose Ur Ql Negative 5 - [facility] Ketones Ur-mCnc Negative 5 - [facility] Hgb Ur Ql Trace Abnormal 5 - [facility] Leukocyte esterase Ur Ql Strip Negative 5 - [facility] Clarity Ur Clear 5 - [facility] pH Ur 7.0 pH 5 5 - 8 [facility] Nitrite Ur Ql Negative 5 - [facility] Prot Ur Strip-mCnc Negative 5 - [facility] Sp Gr Ur 1.015 5 1.005 - 1.03 [facility] Color Ur Yellow 5 - [facility] HPIV2 RNA Nph Ql DEMARCO+probe Not Detected 5 [facility] SARS-CoV-2 RNA Nph Ql DEMARCO+non-probe Not Detected 5 [facility] RV+EV RNA Nph Ql DEMARCO+probe Not Detected 5 [facility] HCoV HKU1 RNA Nph Ql DEMARCO+non-probe Not Detected 5 [facility] FLUAV RNA Nph Ql DEMARCO+non-probe Not Detected 5 [facility] RSV RNA Resp Ql DEMARCO+probe Not Detected 5 [facility] B pert DNA Nph Ql DEMARCO+probe Not Detected 5 [facility] B parap [id number] DNA Nph Ql DEMARCO+non-probe Not Detected 5 [facility] HPIV1 RNA Nph Ql DEMARCO+probe Not Detected 5 [facility] HCoV OC43 RNA Nph Ql DEMARCO+non-probe Not Detected 5 [facility] hMPV B RNA Spec Ql DEMARCO+probe Not Detected 5 [facility] C pneum DNA Nph Ql DEMARCO+probe Not Detected 5 [facility] HPIV3 RNA Nph Ql DEMARCO+probe Not Detected 5 [facility] K pneumon DNA Spec Ql DEMARCO+probe Not Detected 5 [facility] FLUBV RNA Nph Ql DEMARCO+non-probe Not Detected 5 [facility] HPIV4 RNA Nph Ql DEMARCO+probe Not Detected 5 [facility] HAdV DNA Upper resp Ql DEMARCO+probe Not Detected 5 [facility] HCoV 229E RNA Spec Ql DEMARCO+probe Not Detected 5 [facility] HCoV NL63 RNA Aspirate Ql DEMARCO+probe Not Detected 5 [facility] RSV RNA Resp Ql DEMARCO+probe Negative 5 [facility] FLUBV RNA Nph Ql DEMARCO+probe Negative 5 [facility] SARS-CoV-2 RNA Resp Ql DEMARCO+probe Negative 5 [facility] FLUAV RNA Nph Ql DEMARCO+probe Negative 5 [facility] Troponin I SerPl HS-mCnc 7.0 ng/L 5 0 - 20 [facility] BNP SerPl-mCnc 49.0 pcg/mL 5 0 - 100 [facility] Magnesium SerPl-mCnc 2.4 mg/dL 5 1.7 - 2.8 [facility] Lipase SerPl-cCnc 37.0 unit/L 5 11 - 82 [facility] Albumin SerPl-mCnc 3.9 g/dL 5 3.5 - 5 [facility] Sodium SerPl-sCnc 134.0 mmol/L Below low normal 5 135 - 145 [facility] BUN/Creat SerPl 27.4 Above high normal 02 5 12 - 20 [facility] Calcium SerPl-mCnc 10.1 mg/dL 5 8.4 - 10.2 [facility] Chloride SerPl-sCnc 101.0 mmol/L 11/07/19 2 5 98 - 107 [facility] eGFRcr SerPlBld CKD-EPI 2020 30.0 mL/min/1.73m2 Below low normal 5 - [facility] Prot SerPl-mCnc 7.7 g/dL 5 6.4 - 8.5 [facility] Creat SerPl-mCnc 2.15 mg/dL Above high normal 5 0.7 - 1.3 [facility] BUN SerPl-mCnc 59.0 mg/dL Above high normal 11/07/19 2 5 9 - 20 [facility] CO2 SerPl-sCnc 25.0 mmol/L 5 24 - 32 [facility] AST SerPl-cCnc 18.0 unit/L 5 5 - 40 [facility] Potassium SerPl-sCnc 5.0 mmol/L 5 3.5 - 5.1 [facility] Anion Gap SerPl Calc-sCnc 8.0 5 5 - 14 [facility] ALT SerPl-cCnc 15.0 unit/L 5 7 - 52 [facility] Bilirub SerPl-mCnc 0.7 mg/dL 5 0.3 - 1 [facility] Glucose SerPl-mCnc 125.0 mg/dL Above high normal 06/0 5 70 - 99 [facility] ALP SerPl-cCnc 82.0 unit/L 5 34 - 104 [facility] MCH RBC Qn Auto 32.3 pcg 5 25 - 33 [facility] WBC # Bld Auto 14.8 K/mcL Above high normal 11/07/19 2 5 4 - 10.5 [facility] PMV Bld Auto 9.1 FL 5 7.4 - 11.4 [facility] RBC # Bld Auto 3.96 M/mcL Below low normal 5 4.7 - 6 [facility] Eosinophil # Bld Auto 0.09 K/mcL 5 0 - 0.5 [facility] Lymphocytes NFr Bld Auto 4.8 % Below low normal 5 20 - 48 [facility] Hgb Bld-mCnc 12.8 g/dL Below low normal 5 13.5 - 18 [facility] RDW RBC Auto 14.0 % 5 12.1 - 17.7 [facility] MCHC RBC Auto-EntMCnc 33.8 g/dL 5 32 - 36 [facility] Eosinophil NFr Bld Auto 0.6 % 5 0 - 6 [facility] Monocytes NFr Bld Auto 7.9 % 5 2 - 12 [facility] Basophils NFr Bld Auto 0.5 % 5 0 - 2 [facility] Monocytes # Bld Auto 1.17 K/mcL Above high normal 5 0 - 0.8 [facility] Neutrophils # Bld Auto 12.66 K/mcL Above high normal 5 1.8 - 7.8 [facility] Neutrophils NFr Bld Auto 85.7 % Above high normal 5 44 - 74 [facility] RBC Auto 95.7 FL 5 78 - 100 [facility] Basophils # Bld Auto 0.07 K/mcL 5 0 - 0.2 [facility] Hct VFr Bld Auto 37.9 % Below low normal 02 5 40 - 54 [facility] Platelet # Bld Auto 280.0 K/mcL 11/07/19 2 5 150 - 450 [facility] Lymphocytes # Bld Auto 0.71 K/mcL Below low normal 5 1 - 3.2 [facility] LACTIC ACID 2.2 mmol/L Above high normal 5 - [facility] POC Glucose 127.0 mg/dL Above high normal 4 65 - 99 [facility] Magnesium SerPl-mCnc 2.7 mg/dL Normal 4 1.6 - 2.7 [facility] Calcium SerPl-mCnc 9.1 mg/dL Normal 4 8.7 - 10.5 [facility] Albumin/Glob SerPl 1.2 Ratio Normal 4 1 - 3 [facility] Prot SerPl-mCnc 6.6 g/dL Normal 4 6.3 - 8.3 [facility] Bilirub SerPl-mCnc 0.2 mg/dL Normal 4 0.2 - 1 [facility] Creat SerPl-mCnc 1.4 mg/dL Above high normal 4 0.5 - 1.3 [facility] ALT SerPl-cCnc 25.0 U/L Normal 4 10 - 55 [facility] Glucose SerPl-mCnc 132.0 mg/dL Above high normal 03/01 4 65 - 99 [facility] GFR/BSA.pred SerPlBld [id number] 50.0 Below low normal 4 59 - [facility] ALP SerPl-cCnc 75.0 U/L Normal 4 45 - 128 [facility] Globulin Ser Calc-mCnc 3.0 g/dL Normal 4 1.5 - 3.9 [facility] Albumin SerPl-mCnc 3.6 g/dL Normal 4 3.4 - 4.8 [facility] BUN/Creat SerPl 34.0 Ratio Above high normal 02 4 10 - 25 [facility] Sodium SerPl-sCnc 138.0 mmol/L Normal 4 136 - 145 [facility] BUN SerPl-mCnc 48.0 mg/dL Above high normal 03/14/20 2 4 8 - 21 [facility] Anion Gap Bld-sCnc 9.0 Normal 4 7 - 17 [facility] AST SerPl-cCnc 19.0 U/L Normal 4 10 - 55 [facility] CO2 SerPl-sCnc 24.0 mmol/L Normal 4 22 - 33 [facility] Chloride SerPl-sCnc 105.0 mmol/L Normal 03/14/20 2 4 98 - 107 [facility] Potassium SerPl-sCnc 4.6 mmol/L Normal 4 3.4 - 5.3 [facility] Basophils num Bld Auto 0.03 Thou/uL Normal 4 0 - 0.2 [facility] Lymphocytes num Bld Auto 1.42 Thou/uL Below low normal 4 1.5 - 4.5 [facility] Hct VFr Bld Auto 41.5 % Normal 4 39 - 54 [facility] Neutrophils/leuk NFr Bld Auto 85.4 % Normal 4 [facility] RDW RBC Auto-Rto 13.6 % Normal 4 11.5 - 14.5 [facility] MCHC RBC Auto-mCnc 32.0 g/dL Normal 4 30 - 36 [facility] MCH RBC Qn Auto 32.4 pg Above high normal 02 4 27 - 31 [facility] Hgb Bld-mCnc 13.3 g/dL Normal 4 13 - 17.7 [facility] Monocytes/leuk NFr Bld Auto 5.6 % Normal 4 [facility] Eosinophil/leuk NFr Bld Auto 0.0 % Normal 4 [facility] Platelet num Bld Auto 235.0 Thou/uL Normal 4 150 - 450 [facility] Lymphocytes/leuk NFr Bld Auto 8.0 % Normal 4 [facility] RBC num Bld Auto 4.1 Mil/uL Below low normal 02 4 4.5 - 6.2 [facility] WBC num Bld Auto 17.7 Thou/uL Above high normal 4 4 - 11 [facility] PMV Bld Auto 9.2 fL Normal 4 7.5 - 12.5 [facility] Monocytes num Bld Auto 0.99 Thou/uL Normal 4 0.2 - 1.5 [facility] Neutrophils num Bld Auto 15.14 Thou/uL Above high normal 4 2 - 7.5 [facility] Imm Granulocytes/leuk NFr Bld Auto 0.8 % Normal 4 [facility] Basophils/leuk NFr Bld Auto 0.2 % Normal 4 [facility] Imm Granulocytes num Bld Auto 0.15 Thou/uL Above high normal 4 0 - 0.1 [facility] Eosinophil num Bld Auto 0.0 Thou/uL Normal 4 0 - 0.7 [facility] MCV RBC Auto 101.0 fL Above high normal 4 80 - 100 [facility] POC Glucose 146.0 mg/dL Above high normal 4 65 - 99 [facility] POC Glucose 167.0 mg/dL Above high normal 4 65 - 99 [facility] POC Glucose 164.0 mg/dL Above high normal 4 65 - 99 [facility] POC Glucose 168.0 mg/dL Above high normal 4 65 - 99 [facility] POC Glucose 155.0 mg/dL Above high normal 4 65 - 99 [facility] Digoxin SerPl-mCnc 0.6 ug/L Normal 4 0.5 - 1.1 [facility] Chloride SerPl-sCnc 99.0 mmol/L Normal 03/13/20 2 4 98 - 107 [facility] Anion Gap Bld-sCnc 12.0 Normal 4 7 - 17 [facility] Potassium SerPl-sCnc 4.7 mmol/L Normal 4 3.4 - 5.3 [facility] Creat SerPl-mCnc 1.5 mg/dL Above high normal 4 0.5 - 1.3 [facility] GFR/BSA.pred SerPlBld [id number] 46.0 Below low normal 4 59 - HHCCT Sodium SerPl-sCnc 134.0 mmol/L Below low normal 4 136 - 145 [facility] Calcium SerPl-mCnc 9.5 mg/dL Normal 4 8.7 - 10.5 [facility]CT BUN SerPl-mCnc 43.0 mg/dL Above high normal 03/13/20 2 4 8 - 21 [facility] CO2 SerPl-sCnc 23.0 mmol/L Normal 4 22 - 33 [facility] BUN/Creat SerPl 29.0 Ratio Above high normal 02 4 10 - 25 [facility] Glucose SerPl-mCnc 170.0 mg/dL Above high normal 03/01 4 65 - 99 [facility]CT Magnesium SerPl-mCnc 2.5 mg/dL Normal 4 1.6 - 2.7 [facility] Monocytes/leuk NFr Bld Auto 3.5 % Normal 4 [facility] MCHC RBC Auto-mCnc 32.5 g/dL Normal 4 30 - 36 [facility] Neutrophils num Bld Auto 20.45 Thou/uL Above high normal 4 2 - 7.5 [facility] Imm Granulocytes num Bld Auto 0.21 Thou/uL Above high normal 4 0 - 0.1 [facility] PMV Bld Auto 9.4 fL Normal 4 7.5 - 12.5 [facility] Platelet num Bld Auto 245.0 Thou/uL Normal 4 150 - 450 [facility] Monocytes num Bld Auto 0.8 Thou/uL Normal 4 0.2 - 1.5 [facility] Hgb Bld-mCnc 13.0 g/dL Normal 4 13 - 17.7 [facility] Basophils/leuk NFr Bld Auto 0.2 % Normal 4 [facility] Lymphocytes/leuk NFr Bld Auto 5.5 % Normal 4 [facility] Lymphocytes num Bld Auto 1.25 Thou/uL Below low normal 4 1.5 - 4.5 [facility] Eosinophil num Bld Auto 0.0 Thou/uL Normal 4 0 - 0.7 [facility] WBC num Bld Auto 22.8 Thou/uL Above high normal 4 4 - 11 [facility] RDW RBC Auto-Rto 13.3 % Normal 4 11.5 - 14.5 [facility] MCV RBC Auto 100.0 fL Normal 4 80 - 100 [facility] RBC num Bld Auto 4.01 Mil/uL Below low normal 02 4 4.5 - 6.2 [facility] Neutrophils/leuk NFr Bld Auto 89.9 % Normal 4 [facility] Basophils num Bld Auto 0.04 Thou/uL Normal 4 0 - 0.2 [facility] Imm Granulocytes/leuk NFr Bld Auto 0.9 % Normal 4 [facility] MCH RBC Qn Auto 32.4 pg Above high normal 02 4 27 - 31 [facility] Eosinophil/leuk NFr Bld Auto 0.0 % Normal 4 [facility] Hct VFr Bld Auto 40.0 % Normal 4 39 - 54 [facility] POC Glucose 164.0 mg/dL Above high normal 4 65 - 99 [facility] POC Glucose 238.0 mg/dL Above high normal 4 65 - 99 [facility] HCoV HKU1 RNA Nph Ql Non-probe PCR Not Detected Normal 4 [facility] RV+EV RNA Nph Ql Non-probe PCR Not Detected Normal 4 [facility] HCoV NL63 RNA Nph Ql Non-probe PCR Not Detected Normal 4 CCT 2019-nCOV RNA Not Detected Normal 4 [facility] B pert tox prom reg Nph Ql Non-probe PCR Not Detected Normal 4 [facility] HAdV DNA Nph Ql Non-probe PCR Not Detected Normal 4 [facility] HCoV 229E RNA Nph Ql Non-probe PCR Not Detected Normal 4 [facility] C pneum DNA Nph Ql Non-probe PCR Not Detected Normal 4 [facility] M pneumo DNA Nph Ql Non-probe PCR Not Detected Normal 4 [facility]CT Bordetella parapertussis Not Detected Normal 4 [facility] RSV RNA Nph Ql Non-probe PCR Not Detected Normal 4 [facility]CT HPIV1 RNA Nph Ql Non-probe PCR Not Detected Normal 4 [facility]CT HPIV3 RNA Nph Ql Non-probe PCR Not Detected Normal 4 [facility] HCoV OC43 RNA Nph Ql Non-probe PCR Not Detected Normal 4 [facility]CT HPIV4 RNA Nph Ql Non-probe PCR Not Detected Normal 4 [facility]CT hMPV RNA Nph Ql Non-probe PCR Not Detected Normal 4 [facility]CT FLUBV RNA Nph Ql Non-probe PCR Not Detected Normal 4 [facility] FLUAV RNA Nph Ql Non-probe PCR Not Detected Normal 4 [facility]CT HPIV2 RNA Nph Ql Non-probe PCR Not Detected Normal 4 [facility] POC Glucose 194.0 mg/dL Above high normal 4 65 - 99 [facility] POC Glucose 181.0 mg/dL Above high normal 4 65 - 99 [facility]CT Lactate SerPl-sCnc 2.7 mmol/L Above high normal 03/01 4 0.5 - 1.9 [facility]CT POC Glucose 188.0 mg/dL Above high normal 4 65 - 99 [facility]CT Procalcitonin SerPl EIA-mCnc 0.33 ng/mL Above high normal 4 - 0.09 [facility]CT Lactate SerPl-sCnc 2.6 mmol/L Above high normal 03/01 4 0.5 - 1.9 [facility]CT Lactate SerPl-sCnc 2.5 mmol/L Above high normal 03/01 4 0.5 - 1.9 [facility] Hgb A1c MFr Bld 6.1 % Above high normal 02 4 - 5.7 [facility] Est. average glucose Bld gHb Est-mCnc 128.0 mg/dL Normal 4 [facility] pro BNP, N-terminal 734.0 pg/mL Above high normal 4 - 450 [facility] Calcium SerPl-mCnc 9.7 mg/dL Normal 4 8.7 - 10.5 [facility] Anion Gap Bld-sCnc 13.0 Normal 4 7 - 17 [facility] Creat SerPl-mCnc 1.6 mg/dL Above high normal 4 0.5 - 1.3 [facility]CT Chloride SerPl-sCnc 102.0 mmol/L Normal 03/12/20 2 4 98 - 107 [facility]CT BUN SerPl-mCnc 29.0 mg/dL Above high normal 03/12/20 2 4 8 - 21 [facility] Sodium SerPl-sCnc 137.0 mmol/L Normal 4 136 - 145 [facility] Glucose SerPl-mCnc 207.0 mg/dL Above high normal 03/01 4 65 - 99 [facility]CT Potassium SerPl-sCnc 4.7 mmol/L Normal 4 3.4 - 5.3 [facility]CT BUN/Creat SerPl 18.0 Ratio Normal 4 10 - 25 [facility] CO2 SerPl-sCnc 22.0 mmol/L Normal 4 22 - 33 [facility] GFR/BSA.pred SerPlBld [id number] 42.0 Below low normal 4 59 - HHCCT Basophils num Bld Auto 0.05 Thou/uL Normal 4 0 - 0.2 [facility]CT MCH RBC Qn Auto 32.1 pg Above high normal 02 4 27 - 31 [facility] WBC num Bld Auto 24.9 Thou/uL Above high normal 4 4 - 11 [facility] Platelet num Bld Auto 239.0 Thou/uL Normal 4 150 - 450 [facility] Neutrophils num Bld Auto 23.76 Thou/uL Above high normal 4 2 - 7.5 [facility]CT MCV RBC Auto 98.0 fL Normal 4 80 - 100 [facility] RBC Auto-mCnc 32.8 g/dL Normal 4 30 - 36 [facility] Hct VFr Bld Auto 41.8 % Normal 4 39 - 54 [facility] Monocytes/leuk NFr Bld Auto 0.6 % Normal 4 [facility] Monocytes num Bld Auto 0.16 Thou/uL Below low normal 4 0.2 - 1.5 [facility] Imm Granulocytes num Bld Auto 0.31 Thou/uL Above high normal 4 0 - 0.1 [facility] Neutrophils/leuk NFr Bld Auto 95.6 % Normal 4 [facility] Lymphocytes/leuk NFr Bld Auto 2.4 % Normal 4 [facility] Imm Granulocytes/leuk NFr Bld Auto 1.2 % Normal 4 [facility] PMV Bld Auto 9.4 fL Normal 4 7.5 - 12.5 [facility] RDW RBC Auto-Rto 13.3 % Normal 4 11.5 - 14.5 [facility] Lymphocytes num Bld Auto 0.6 Thou/uL Below low normal 4 1.5 - 4.5 [facility] Hgb Bld-mCnc 13.7 g/dL Normal 4 13 - 17.7 [facility] Eosinophil/leuk NFr Bld Auto 0.0 % Normal 4 [facility] Basophils/leuk NFr Bld Auto 0.2 % Normal 4 [facility] Eosinophil num Bld Auto 0.0 Thou/uL Normal 4 0 - 0.7 [facility] RBC num Bld Auto 4.27 Mil/uL Below low normal 02 4 4.5 - 6.2 [facility] Troponin I SerPl HS-mCnc 7.0 ng/L Normal 4 0 - 20 [facility] RSV RNA Nph Ql DEMARCO+non-probe NEGATIVE Normal 4 [facility] FLUAV RNA Nph Ql DEMARCO+non-probe NEGATIVE Normal 4 [facility] FLUBV RNA Nph Ql DEMARCO+non-probe NEGATIVE Normal 4 [facility] Service [facility] XXX-Imp Cepheid GeneXpert (RT-PCR) [facility] Normal 4 [facility] SPECIMEN SOURCE XXX NASOPHARYNGEAL Normal 4 [facility] MAGNESIUM SERPL MCNC 2.3 mg/dL Normal 4 1.7 - 2.8 [facility] GLUCOSE SERPL MCNC 149.0 mg/dL Normal 4 70 - 199 [facility] SODIUM SERPL SCNC 136.0 mmol/L Normal 4 135 - 145 [facility] CHLORIDE SERPL SCNC 101.0 mmol/L Normal 03/12/20 2 4 98 - 107 [facility] CALCIUM SERPL MCNC 10.1 mg/dL Normal 4 8.4 - 10.2 [facility] CREAT SERPL MCNC 1.8 mg/dL Above high normal 4 0.7 - 1.3 [facility] POTASSIUM SERPL SCNC 5.0 mmol/L Normal 4 3.5 - 5.1 [facility] Glomerular filtration rate/1.73 sq M. predicted 37.0 Below low normal 4 60 - [facility] BUN SERPL MCNC 30.0 mg/dL Above high normal 03/12/20 2 4 9 - 20 [facility] HCO3 SER SCNC 26.0 mmol/L Normal 4 24 - 32 [facility] ANION GAP SERPL SCNC 9.0 mmol/L Normal 4 5 - 14 [facility] BNP BLD MCNC 71.0 pg/mL Normal 4 0 - 100 [facility] MCH RBC QN AUTO 33.0 pg Normal 4 25 - 33 [facility] MONOCYTES NFR BLD AUTO 5.2 % Normal 4 2 - 12 [facility] EOSINOPHIL NO. BLD AUTO 0.2 K/uL Normal 4 0 - 0.5 [facility] EOSINOPHIL NFR BLD AUTO 0.7 % Normal 4 0 - 6 [facility] LYMPHOCYTES NFR BLD AUTO 6.1 % Below low normal 4 20 - 48 [facility] LYMPHOCYTES NO. BLD AUTO 1.4 K/uL Normal 4 1 - 3.2 [facility] MCV RBC AUTO 98.2 fL Normal 4 78 - 100 [facility] NEUTROPHILS NFR BLD AUTO 86.9 % Above high normal 4 44 - 74 [facility] NEUTROPHILS NO. BLD AUTO 19.7 K/uL Above high normal 4 1.8 - 7.8 [facility] RBC NO. BLD AUTO 4.48 M/uL Below low normal 02 4 4.7 - 6 [facility] HGB BLD MCNC 14.8 g/dL Normal 4 13.5 - 18 [facility] PLATELET NO. BLD AUTO 260.0 K/uL Normal 4 150 - 450 [facility] BASOPHILS NFR BLD AUTO 0.4 % Normal 4 0 - 2 [facility] BASOPHILS IN BLOOD BY AUTOMATED COUNT 0.1 K/uL Normal 4 0 - 0.2 [facility] IMMATURE GRANULOCYTE, ABSOLUTE 0.17 k/uL Above high normal 4 - 0.1 [facility] PMV BLD AUTO 9.2 fL Normal 4 7.4 - 11.4 [facility] RDW RBC AUTO RTO 13.3 % Normal 4 12.1 - 17.7 [facility] NUCLEATED RBC 0.0 % Normal 4 0 - 1 [facility] WBC NO. BLD AUTO 22.7 K/uL Above high normal 4 4 - 10.5 [facility] HCT VFR BLD AUTO 44.0 % Normal 4 40 - 54 [facility] IMMATURE GRANULOCYTE, PERCENT 0.7 % Normal 4 0 - 1 [facility] MONOCYTES NO. BLD AUTO 1.2 K/uL Above high normal 4 0 - 0.8 [facility] MCHC RBC AUTO MCNC 33.6 g/dL Normal 4 32 - 36 [facility] Troponin I SerPl HS-mCnc 7.0 ng/L Normal 4 0 - 20 [facility] PT TIME PPP 17.7 sec Above high normal 4 10.5 - 13.3 [facility] INR PPP 1.5 Above high normal 4 0.8 - 1.1 [facility] PROT SERPL MCNC 6.8 g/dL Normal 4 6.4 - 8.5 [facility] BILIRUB SERPL MCNC 0.4 mg/dL Normal 4 0.3 - 1 [facility] ALT SERPL CCNC 22.0 U/L Normal 4 7 - 52 [facility] ALBUMIN SERPL BCG MCNC 4.2 g/dL Normal 4 3.5 - 5 [facility] ALP SERPL-CCNC 86.0 U/L Normal 4 34 - 104 [facility] AST SERPL CCNC 20.0 U/L Normal 4 5 - 40 [facility] CREAT SERPL MCNC 1.6 mg/dL Above high normal 4 0.7 - 1.3 [facility] CHLORIDE SERPL SCNC 103.0 mmol/L Normal 01/23/20 2 4 98 - 107 [facility] ANION GAP SERPL SCNC 11.0 mmol/L Normal 4 5 - 14 [facility] CALCIUM SERPL MCNC 9.5 mg/dL Normal 4 8.4 - 10.2 [facility] Glomerular filtration rate/1.73 sq M. predicted 42.0 Below low normal 4 60 - [facility] SODIUM SERPL SCNC 137.0 mmol/L Normal 4 135 - 145 [facility] GLUCOSE SERPL MCNC 115.0 mg/dL Normal 4 70 - 199 [facility] HCO3 SER SCNC 23.0 mmol/L Below low normal 4 24 - 32 [facility] BUN SERPL MCNC 31.0 mg/dL Above high normal 01/23/20 2 4 9 - 20 [facility] POTASSIUM SERPL SCNC 5.4 mmol/L Above high normal 4 3.5 - 5.1 [facility] MONOCYTES NO. BLD AUTO 1.0 K/uL Above high normal 4 0 - 0.8 [facility] DIFFERENTIAL TYPE AUTOMATED Normal 4 [facility] BASOPHILS NFR BLD AUTO 0.9 % Normal 4 0 - 2 [facility] PLATELET NO. BLD AUTO 375.0 K/uL Normal 4 150 - 450 [facility] WBC NO. BLD AUTO 9.4 K/uL Normal 4 4 - 10.5 [facility] MCH RBC QN AUTO 33.3 pg Above high normal 02 4 25 - 33 [facility] EOSINOPHIL NFR BLD AUTO 8.1 % Above high normal 4 0 - 6 [facility] HCT VFR BLD AUTO 44.0 % Normal 4 40 - 54 [facility] LYMPHOCYTES NO. BLD AUTO 2.5 K/uL Normal 4 1 - 3.2 [facility] MONOCYTES NFR BLD AUTO 10.1 % Normal 4 2 - 12 [facility] RDW RBC AUTO RTO 13.9 % Normal 4 12.1 - 17.7 [facility] HGB BLD MCNC 14.7 g/dL Normal 4 13.5 - 18 [facility] LYMPHOCYTES NFR BLD AUTO 26.1 % Normal 4 20 - 48 [facility] NEUTROPHILS NO. BLD AUTO 5.1 K/uL Normal 4 1.8 - 7.8 [facility] MCHC RBC AUTO MCNC 33.5 g/dL Normal 4 32 - 36 [facility] MCV RBC AUTO 99.6 fL Normal 4 78 - 100 [facility] NEUTROPHILS NFR BLD AUTO 54.8 % Normal 4 44 - 74 [facility] EOSINOPHIL NO. BLD AUTO 0.8 K/uL Above high normal 4 0 - 0.5 [facility] RBC NO. BLD AUTO 4.42 M/uL Below low normal 02 4 4.7 - 6 [facility] BASOPHILS IN BLOOD BY AUTOMATED COUNT 0.1 K/uL Normal 4 0 - 0.2 [facility] PMV BLD AUTO 8.0 fL Normal 4 7.4 - 11.4 [facility] PHOSPHATE SERPL MCNC 1.7 mg/dL Below low normal 4 2.5 - 4.5 [facility] MAGNESIUM SERPL MCNC 2.5 mg/dL Normal 4 1.7 - 2.8 [facility] CALCIUM SERPL MCNC 8.4 mg/dL Normal 4 8.4 - 10.2 [facility] GLUCOSE P FAST SERPL MCNC 171.0 mg/dL Above high normal 4 70 - 99 [facility] HCO3 SER SCNC 22.0 mmol/L Below low normal 4 24 - 32 [facility] CREAT SERPL MCNC 1.2 mg/dL Normal 4 0.7 - 1.3 [facility] POTASSIUM SERPL SCNC 4.6 mmol/L Normal 4 3.5 - 5.1 [facility] SODIUM SERPL SCNC 137.0 mmol/L Normal 4 135 - 145 [facility] Glomerular filtration rate/1.73 sq M. predicted 60.0 Below low normal 4 60 - [facility] ANION GAP SERPL SCNC 8.0 mmol/L Normal 4 5 - 14 [facility] BUN SERPL MCNC 34.0 mg/dL Above high normal 12/28/19 2 4 9 - 20 [facility] CHLORIDE SERPL SCNC 107.0 mmol/L Normal 12/28/19 2 4 98 - 107 [facility] MCV RBC AUTO 99.3 fL Normal 4 78 - 100 [facility] RDW RBC AUTO RTO 13.2 % Normal 4 12.1 - 17.7 [facility] MCH RBC QN AUTO 32.9 pg Normal 4 25 - 33 [facility] PMV BLD AUTO 9.4 fL Normal 4 7.4 - 11.4 [facility] MCHC RBC AUTO MCNC 33.2 g/dL Normal 4 32 - 36 [facility] PLATELET NO. BLD AUTO 247.0 K/uL Normal 4 150 - 450 [facility] HCT VFR BLD AUTO 40.1 % Normal 4 40 - 54 [facility] WBC NO. BLD AUTO 17.4 K/uL Above high normal 4 4 - 10.5 [facility] HGB BLD MCNC 13.3 g/dL Below low normal 4 13.5 - 18 [facility] RBC NO. BLD AUTO 4.04 M/uL Below low normal 02 4 4.7 - 6 [facility] RBC NO. BLD AUTO 4.18 M/uL Below low normal 02 4 4.7 - 6 [facility] PMV BLD AUTO 9.5 fL Normal 4 7.4 - 11.4 [facility] PLATELET NO. BLD AUTO 261.0 K/uL Normal 4 150 - 450 [facility] HCT VFR BLD AUTO 42.2 % Normal 4 40 - 54 [facility] RDW RBC AUTO RTO 13.2 % Normal 4 12.1 - 17.7 [facility] WBC NO. BLD AUTO 22.2 K/uL Above high normal 4 4 - 10.5 [facility] MCV RBC AUTO 101.0 fL Above high normal 4 78 - 100 [facility] MCH RBC QN AUTO 32.8 pg Normal 4 25 - 33 [facility] HGB BLD MCNC 13.7 g/dL Normal 4 13.5 - 18 [facility] MCHC RBC AUTO MCNC 32.5 g/dL Normal 4 32 - 36 [facility] PHOSPHATE SERPL MCNC 2.5 mg/dL Normal 4 2.5 - 4.5 [facility] CALCIUM SERPL MCNC 8.2 mg/dL Below low normal 12/26 4 8.4 - 10.2 [facility] CHLORIDE SERPL SCNC 105.0 mmol/L Normal 12/27/19 2 4 98 - 107 [facility] HCO3 SER SCNC 22.0 mmol/L Below low normal 4 24 - 32 [facility] SODIUM SERPL SCNC 137.0 mmol/L Normal 4 135 - 145 [facility] GLUCOSE P FAST SERPL MCNC 155.0 mg/dL Above high normal 4 70 - 99 [facility] POTASSIUM SERPL SCNC 4.1 mmol/L Normal 4 3.5 - 5.1 [facility] ANION GAP SERPL SCNC 10.0 mmol/L Normal 4 5 - 14 [facility] Glomerular filtration rate/1.73 sq M. predicted 55.0 Below low normal 4 60 - [facility] BUN SERPL MCNC 31.0 mg/dL Above high normal 12/27/19 2 4 9 - 20 [facility] CREAT SERPL MCNC 1.3 mg/dL Normal 4 0.7 - 1.3 [facility] MAGNESIUM SERPL MCNC 2.2 mg/dL Normal 4 1.7 - 2.8 [facility] FLUBV RNA Nph Ql DEMARCO+non-probe NEGATIVE Normal 4 [facility] RSV RNA Nph Ql DEMARCO+non-probe NEGATIVE Normal 4 [facility] Service [facility] XXX-Imp Cepheid GeneXpert (RT-PCR) [facility] Normal 4 [facility] FLUAV RNA Nph Ql DEMARCO+non-probe NEGATIVE Normal 4 [facility] SPECIMEN SOURCE XXX NASOPHARYNGEAL Normal 4 [facility] Ketones Ur Ql Strip.auto NEGATIVE Normal 4 - [facility] Clarity Ur Refract.auto CLEAR Normal 4 [facility] Sp Gr Ur Strip.auto 1.015 Normal 12/26/19 2 4 1.005 - 1.03 [facility] Prot Ur Ql Strip.auto NEGATIVE Normal 4 - [facility] Hgb Ur Ql Strip.auto NEGATIVE Normal 4 - [facility] Nitrite Ur Ql Strip.auto NEGATIVE Normal 4 - [facility] Leukocyte esterase Ur Ql Strip.auto NEGATIVE Normal 4 - [facility] Glucose Ur Ql Strip.auto NEGATIVE Normal 4 - [facility] pH Ur Strip.auto 5.5 Normal 4 4.5 - 8 [facility] SPECIMEN SOURCE XXX URINE, RANDOM Normal 02 4 [facility] MAGNESIUM SERPL MCNC 2.2 mg/dL Normal 4 1.7 - 2.8 [facility] CHLORIDE SERPL SCNC 105.0 mmol/L Normal 12/26/19 2 4 98 - 107 [facility] ANION GAP SERPL SCNC 6.0 mmol/L Normal 4 5 - 14 [facility] CREAT SERPL MCNC 1.5 mg/dL Above high normal 4 0.7 - 1.3 [facility] CALCIUM SERPL MCNC 8.5 mg/dL Normal 4 8.4 - 10.2 [facility] GLUCOSE P FAST SERPL MCNC 158.0 mg/dL Above high normal 4 70 - 99 [facility] Glomerular filtration rate/1.73 sq M. predicted 46.0 Below low normal 4 60 - [facility] POTASSIUM SERPL SCNC 4.8 mmol/L Normal 4 3.5 - 5.1 [facility] BUN SERPL MCNC 36.0 mg/dL Above high normal 12/26/19 2 4 9 - 20 [facility] HCO3 SER SCNC 25.0 mmol/L Normal 4 24 - 32 [facility] SODIUM SERPL SCNC 136.0 mmol/L Normal 4 135 - 145 [facility] RDW RBC AUTO RTO 13.0 % Normal 4 12.1 - 17.7 [facility] MCH RBC QN AUTO 32.9 pg Normal 4 25 - 33 [facility] RBC NO. BLD AUTO 4.04 M/uL Below low normal 02 4 4.7 - 6 [facility] MCHC RBC AUTO MCNC 33.2 g/dL Normal 4 32 - 36 [facility] MCV RBC AUTO 99.3 fL Normal 4 78 - 100 [facility] PLATELET NO. BLD AUTO 252.0 K/uL Normal 4 150 - 450 [facility] HCT VFR BLD AUTO 40.1 % Normal 4 40 - 54 [facility] PMV BLD AUTO 9.6 fL Normal 4 7.4 - 11.4 [facility] WBC NO. BLD AUTO 22.4 K/uL Above high normal 4 4 - 10.5 [facility] HGB BLD MCNC 13.3 g/dL Below low normal 4 13.5 - 18 [facility] LACTATE SERPL SCNC 1.4 mmol/L Normal 4 0.5 - 2 [facility] PHOSPHATE SERPL MCNC 2.6 mg/dL Normal 4 2.5 - 4.5 [facility] LACTATE SERPL SCNC 2.8 mmol/L Above high normal 11/30 4 0.5 - 2 [facility] LACTATE SERPL SCNC 3.4 mmol/L Above high normal 11/30 4 0.5 - 2 [facility] LACTATE SERPL SCNC 2.0 mmol/L Normal 4 0.5 - 2 [facility] DIGOXIN SERPL MCNC 1.1 ng/mL Normal 4 0.8 - 2 [facility] MAGNESIUM SERPL MCNC 2.1 mg/dL Normal 4 1.7 - 2.8 [facility] ALP SERPL-CCNC 80.0 U/L Normal 4 34 - 104 [facility] BILIRUB DIRECT SERPL MCNC 0.2 mg/dL Normal 4 0 - 0.2 [facility] BILIRUB SERPL MCNC 0.9 mg/dL Normal 4 0.3 - 1 [facility] AST SERPL CCNC 18.0 U/L Normal 4 5 - 40 [facility] ALT SERPL CC[facility] 20.0 U/L Normal 4 7 - 52 [facility] PROT SERPL MCNC 7.4 g/dL Normal 4 6.4 - 8.5 [facility] ALBUMIN SERPL BCG MCNC 4.1 g/dL Normal 4 3.5 - 5 [facility] ALBUMIN/GLOB SERPL MRTO 1.2 Normal 4 [facility] PHOSPHATE SERPL MCNC 1.4 mg/dL Below low normal 4 2.5 - 4.5 [facility] Troponin I SerPl HS-mCnc 8.0 ng/L Normal 4 0 - 20 [facility] D DIMER DDU PPP EIA MCNC 584.0 ng/mL DDU Above high normal 4 - 231 [facility] LACTATE SERPL SCNC 3.0 mmol/L Above high normal 11/30 4 0.5 - 2 [facility] SAO2% BLDA 94.6 % Below low normal 4 95 - 98 [facility] BASE EXCESS BLDA SCNC 3.7 mmol/L Above high normal 4 0 - 2 [facility] PH BLDA 7.5 Above high normal 4 7.35 - 7.45 [facility] HCO3 BLDA SCNC 27.6 mmol/L Above high normal 12/25/19 2 4 22 - 26 [facility] PCO2 BLDA 34.0 mmHg Below low normal 4 35 - 45 [facility] PO2 BLDA 61.0 mmHg Below low normal 4 80 - 105 [facility] SPECIMEN TYPE ARTERIAL Normal 4 [facility] PT TIME PPP 18.5 sec Above high normal 4 10.5 - 13.3 [facility] INR PPP 1.5 Above high normal 4 0.8 - 1.1 [facility] BASOPHILS NFR BLD AUTO 0.6 % Normal 4 0 - 2 [facility] EOSINOPHIL NO. BLD AUTO 0.2 K/uL Normal 4 0 - 0.5 [facility] HGB BLD MCNC 15.4 g/dL Normal 4 13.5 - 18 [facility] PMV BLD AUTO 9.4 fL Normal 4 7.4 - 11.4 [facility] LYMPHOCYTES NFR BLD AUTO 3.0 % Below low normal 4 20 - 48 [facility] LYMPHOCYTES NO. BLD AUTO 0.7 K/uL Below low normal 4 1 - 3.2 [facility] NEUTROPHILS NFR BLD AUTO 89.0 % Above high normal 4 44 - 74 [facility] MONOCYTES NO. BLD AUTO 1.3 K/uL Above high normal 4 0 - 0.8 [facility] PLATELET NO. BLD AUTO 297.0 K/uL Normal 4 150 - 450 [facility] NUCLEATED RBC 0.0 % Normal 4 0 - 1 [facility] IMMATURE GRANULOCYTE, PERCENT 0.9 % Normal 4 0 - 1 [facility] BASOPHILS IN BLOOD BY AUTOMATED COUNT 0.1 K/uL Normal 4 0 - 0.2 [facility] IMMATURE GRANULOCYTE, ABSOLUTE 0.22 k/uL Above high normal 4 - 0.1 [facility] NEUTROPHILS NO. BLD AUTO 20.7 K/uL Above high normal 4 1.8 - 7.8 [facility] RDW RBC AUTO RTO 12.8 % Normal 4 12.1 - 17.7 [facility] MONOCYTES NFR BLD AUTO 5.5 % Normal 4 2 - 12 [facility] WBC NO. BLD AUTO 23.3 K/uL Above high normal 4 4 - 10.5 [facility] HCT VFR BLD AUTO 45.8 % Normal 4 40 - 54 [facility] RBC NO. BLD AUTO 4.59 M/uL Below low normal 02 4 4.7 - 6 [facility] MCHC RBC AUTO MCNC 33.6 g/dL Normal 4 32 - 36 [facility] MCV RBC AUTO 99.8 fL Normal 4 78 - 100 [facility] EOSINOPHIL NFR BLD AUTO 1.0 % Normal 4 0 - 6 [facility] MCH RBC QN AUTO 33.6 pg Above high normal 02 4 25 - 33 [facility] Troponin I SerPl HS-mCnc 6.0 ng/L Normal 4 0 - 20 [facility] HCO3 SER SCNC 27.0 mmol/L Normal 4 24 - 32 [facility] BUN SERPL MCNC 38.0 mg/dL Above high normal 12/25/19 2 4 9 - 20 [facility] CHLORIDE SERPL SCNC 98.0 mmol/L Normal 12/25/19 2 4 98 - 107 [facility] CREAT SERPL MCNC 1.7 mg/dL Above high normal 4 0.7 - 1.3 [facility] ANION GAP SERPL SCNC 10.0 mmol/L Normal 4 5 - 14 [facility] POTASSIUM SERPL SCNC 4.8 mmol/L Normal 4 3.5 - 5.1 [facility] CALCIUM SERPL MCNC 10.2 mg/dL Normal 4 8.4 - 10.2 [facility] SODIUM SERPL SCNC 135.0 mmol/L Normal 4 135 - 145 [facility] GLUCOSE SERPL MCNC 143.0 mg/dL Normal 4 70 - 199 [facility] Glomerular filtration rate/1.73 sq M. predicted 40.0 Below low normal 4 60 - [facility] MAGNESIUM SERPL MCNC 2.3 mg/dL Normal 4 1.7 - 2.8 [facility] Glomerular filtration rate/1.73 sq M. predicted 46.0 Below low normal 4 60 - [facility] ANION GAP SERPL SCNC 15.0 mmol/L Above high normal 4 5 - 14 [facility] CALCIUM SERPL MCNC 9.6 mg/dL Normal 4 8.4 - 10.2 [facility] BUN SERPL MCNC 36.0 mg/dL Above high normal 10/22/19 2 4 9 - 20 [facility] CREAT SERPL MCNC 1.5 mg/dL Above high normal 4 0.7 - 1.3 [facility] SODIUM SERPL SCNC 139.0 mmol/L Normal 4 135 - 145 [facility] HCO3 SER SCNC 18.0 mmol/L Below low normal 4 24 - 32 [facility] CHLORIDE SERPL SCNC 106.0 mmol/L Normal 10/22/19 2 4 98 - 107 [facility] GLUCOSE SERPL MCNC 167.0 mg/dL Normal 4 70 - 199 [facility] POTASSIUM SERPL SCNC 4.8 mmol/L Normal 4 3.5 - 5.1 [facility] MCV RBC AUTO 100.7 fL Above high normal 4 78 - 100 [facility] NEUTROPHILS NO. BLD AUTO 8.1 K/uL Above high normal 4 1.8 - 7.8 [facility] MCHC RBC AUTO MCNC 32.7 g/dL Normal 4 32 - 36 [facility] WBC NO. BLD AUTO 9.3 K/uL Normal 4 4 - 10.5 [facility] LYMPHOCYTES NO. BLD AUTO 1.1 K/uL Normal 4 1 - 3.2 [facility] RBC NO. BLD AUTO 4.41 M/uL Below low normal 02 4 4.7 - 6 [facility] IMMATURE GRANULOCYTE, ABSOLUTE 0.06 k/uL Normal 4 - 0.1 [facility] MCH RBC QN AUTO 32.9 pg Normal 4 25 - 33 [facility] MONOCYTES NO. BLD AUTO 0.1 K/uL Normal 4 0 - 0.8 [facility] MONOCYTES NFR BLD AUTO 0.5 % Below low normal 4 2 - 12 [facility] LYMPHOCYTES NFR BLD AUTO 11.6 % Below low normal 4 20 - 48 [facility] HCT VFR BLD AUTO 44.4 % Normal 4 40 - 54 [facility] RDW RBC AUTO RTO 13.6 % Normal 4 12.1 - 17.7 [facility] BASOPHILS NFR BLD AUTO 0.2 % Normal 4 0 - 2 [facility] EOSINOPHIL NO. BLD AUTO 0.0 K/uL Normal 4 0 - 0.5 [facility] NUCLEATED RBC 0.0 % Normal 4 0 - 1 [facility] NEUTROPHILS NFR BLD AUTO 87.0 % Above high normal 4 44 - 74 [facility] IMMATURE GRANULOCYTE, PERCENT 0.6 % Normal 4 0 - 1 [facility] EOSINOPHIL NFR BLD AUTO 0.1 % Normal 4 0 - 6 [facility] PLATELET NO. BLD AUTO 263.0 K/uL Normal 4 150 - 450 [facility] BASOPHILS IN BLOOD BY AUTOMATED COUNT 0.0 K/uL Normal 4 0 - 0.2 [facility] HGB BLD [facility]NC 14.5 g/dL Normal 4 13.5 - 18 [facility] PMV BLD AUTO 9.5 fL Normal 4 7.4 - 11.4 [facility] RSV RNA Nph Ql DEMARCO+non-probe NEGATIVE Normal 4 [facility] Service [facility] XXX-Imp Cepheid GeneXpert (RT-PCR) [facility] Normal 4 [facility] FLUBV RNA Nph Ql DEMARCO+non-probe NEGATIVE Normal 4 [facility] FLUAV RNA Nph Ql DEMARCO+non-probe NEGATIVE Normal 4 [facility] SPECIMEN SOURCE XXX NASOPHARYNGEAL Normal 4 [facility] BNP BLD MCNC 65.0 pg/mL Normal 4 0 - 100 [facility] Troponin I SerPl HS-mCnc 6.0 ng/L Normal 4 0 - 20 [facility] CALCIUM SERPL MCNC 10.3 mg/dL Above high normal 09/30 4 8.4 - 10.2 [facility] HCO3 SER SCNC 25.0 mmol/L Normal 4 24 - 32 [facility] POTASSIUM SERPL SCNC 5.1 mmol/L Normal 4 3.5 - 5.1 [facility] ANION GAP SERPL SCNC 7.0 mmol/L Normal 4 5 - 14 [facility] CHLORIDE SERPL SCNC 106.0 mmol/L Normal 10/21/19 2 4 98 - 107 [facility] SODIUM SERPL SCNC 138.0 mmol/L Normal 4 135 - 145 [facility] BUN SERPL MCNC 32.0 mg/dL Above high normal 10/21/19 2 4 9 - 20 [facility] CREAT SERPL MCNC 1.4 mg/dL Above high normal 4 0.7 - 1.3 [facility] Glomerular filtration rate/1.73 sq M. predicted 50.0 Below low normal 4 60 - [facility] GLUCOSE SERPL MCNC 116.0 mg/dL Normal 4 70 - 199 [facility] LYMPHOCYTES NO. BLD AUTO 2.1 K/uL Normal 4 1 - 3.2 [facility] NEUTROPHILS NO. BLD AUTO 7.5 K/uL Normal 4 1.8 - 7.8 [facility] WBC NO. BLD AUTO 11.7 K/uL Above high normal 4 4 - 10.5 [facility] PMV BLD AUTO 9.3 fL Normal 4 7.4 - 11.4 [facility] MCV RBC AUTO 98.6 fL Normal 4 78 - 100 [facility] IMMATURE GRANULOCYTE, PERCENT 0.4 % Normal 4 0 - 1 [facility] EOSINOPHIL NFR BLD AUTO 10.9 % Above high normal 4 0 - 6 [facility] BASOPHILS NFR BLD AUTO 0.9 % Normal 4 0 - 2 [facility] BASOPHILS IN BLOOD BY AUTOMATED COUNT 0.1 K/uL Normal 4 0 - 0.2 [facility] MONOCYTES NO. BLD AUTO 0.7 K/uL Normal 4 0 - 0.8 [facility] RBC NO. BLD AUTO 4.42 M/uL Below low normal 02 4 4.7 - 6 [facility] PLATELET NO. BLD AUTO 290.0 K/uL Normal 4 150 - 450 [facility] MCH RBC QN AUTO 33.7 pg Above high normal 02 4 25 - 33 [facility] MONOCYTES NFR BLD AUTO 6.1 % Normal 4 2 - 12 [facility] IMMATURE GRANULOCYTE, ABSOLUTE 0.05 k/uL Normal 4 - 0.1 [facility] HCT VFR BLD AUTO 43.6 % Normal 4 40 - 54 [facility] RDW RBC AUTO RTO 13.8 % Normal 4 12.1 - 17.7 [facility] LYMPHOCYTES NFR BLD AUTO 17.6 % Below low normal 4 20 - 48 [facility] NUCLEATED RBC 0.0 % Normal 4 0 - 1 [facility] MCHC RBC AUTO MCNC 34.2 g/dL Normal 4 32 - 36 [facility] EOSINOPHIL NO. BLD AUTO 1.3 K/uL Above high normal 4 0 - 0.5 [facility] HGB BLD MCNC 14.9 g/dL Normal 4 13.5 - 18 [facility] NEUTROPHILS NFR BLD AUTO 64.1 % Normal 4 44 - 74 [facility] PT TIME PPP 14.9 sec Above high normal 4 10.5 - 13.3 [facility] INR PPP 1.2 Above high normal 4 0.8 - 1.1 [facility] Procalcitonin SerPl IA-mCnc 0.07 ng/mL Above high normal 4 - 0.05 [facility] PLATELET NO. BLD AUTO 269.0 K/uL Normal 4 150 - 450 [facility] HCT VFR BLD AUTO 44.6 % Normal 4 40 - 54 [facility] WBC NO. BLD AUTO 9.1 K/uL Normal 4 4 - 10.5 [facility] HGB BLD MCNC 15.5 g/dL Normal 4 13.5 - 18 [facility] PMV BLD AUTO 8.6 fL Normal 4 7.4 - 11.4 [facility] MCHC RBC AUTO MCNC 34.7 g/dL Normal 4 32 - 36 [facility] MCV RBC AUTO 99.9 fL Normal 4 78 - 100 [facility] RDW RBC AUTO RTO 13.8 % Normal 4 12.1 - 17.7 [facility] MCH RBC QN AUTO 34.7 pg Above high normal 02 4 25 - 33 [facility] RBC NO. BLD AUTO 4.46 M/uL Below low normal 02 4 4.7 - 6 [facility] HDLC SERPL-MCNC 36.0 mg/dL Normal 4 32 - 70 [facility] LDLc SerPl Calc-mCnc 86.0 mg/dL Normal 4 50 - 130 [facility] TRIGL SERPL-MCNC 194.0 mg/dL Above high normal 4 - 150 [facility] CHOLEST SERPL-MCNC 161.0 mg/dL Normal 4 0 - 200 [facility] CALCIUM SERPL MCNC 9.6 mg/dL Normal 4 8.4 - 10.2 [facility] GLUCOSE P FAST SERPL MCNC 95.0 mg/dL Normal 4 70 - 99 [facility] CREAT SERPL MCNC 1.5 mg/dL Above high normal 4 0.7 - 1.3 [facility] CHLORIDE SERPL SCNC 103.0 mmol/L Normal 06/09/19 2 4 98 - 107 [facility] HCO3 SER SCNC 27.0 mmol/L Normal 4 24 - 32 [facility] POTASSIUM SERPL SCNC 4.3 mmol/L Normal 4 3.5 - 5.1 [facility] BUN SERPL MCNC 35.0 mg/dL Above high normal 06/09/19 2 4 9 - 20 [facility] SODIUM SERPL SCNC 139.0 mmol/L Normal 4 135 - 145 [facility] Glomerular filtration rate/1.73 sq M. predicted 46.0 Below low normal 4 60 - [facility] ANION GAP SERPL SCNC 9.0 mmol/L Normal 4 5 - 14 [facility] ANION GAP SERPL SCNC 9.0 mmol/L Normal 3 5 - 14 [facility] SODIUM SERPL SCNC 140.0 mmol/L Normal 3 135 - 145 [facility] CALCIUM SERPL MCNC 10.2 mg/dL Normal 3 8.4 - 10.2 [facility] GLUCOSE P FAST SERPL MCNC 114.0 mg/dL Above high normal 3 70 - 99 [facility] BUN SERPL MCNC 26.0 mg/dL Above high normal 05/12/20 2 3 9 - 20 [facility] CHLORIDE SERPL SCNC 103.0 mmol/L Normal 05/12/20 2 3 98 - 107 [facility] HCO3 SER SCNC 28.0 mmol/L Normal 3 24 - 32 [facility] POTASSIUM SERPL SCNC 4.5 mmol/L Normal 3 3.5 - 5.1 [facility] Glomerular filtration rate/1.73 sq M. predicted 40.0 Below low normal 3 60 - [facility] CREAT SERPL MCNC 1.7 mg/dL Above high normal 3 0.7 - 1.3 [facility] BNP BLD MCNC 81.0 pg/mL Normal 3 0 - 100 [facility] GLUCOSE P FAST SERPL MCNC 108.0 mg/dL Above high normal 3 70 - 99 [facility] CALCIUM SERPL MCNC 10.0 mg/dL Normal 3 8.4 - 10.2 [facility] BUN SERPL MCNC 23.0 mg/dL Above high normal 04/24/20 2 3 9 - 20 [facility] ANION GAP SERPL SCNC 13.0 mmol/L Normal 3 5 - 14 [facility] Glomerular filtration rate/1.73 sq M. predicted 42.0 Below low normal 3 60 - [facility] SODIUM SERPL SCNC 141.0 mmol/L Normal 3 135 - 145 [facility] CHLORIDE SERPL SCNC 100.0 mmol/L Normal 04/24/20 2 3 98 - 107 [facility] HCO3 SER SCNC 28.0 mmol/L Normal 3 24 - 32 [facility] CREAT SERPL MCNC 1.6 mg/dL Above high normal 3 0.7 - 1.3 [facility] POTASSIUM SERPL SCNC 4.2 mmol/L Normal 3 3.5 - 5.1 [facility] MAGNESIUM SERPL MCNC 2.5 mg/dL Normal 3 1.7 - 2.8 [facility] History of Medication Use Medication Directions Dispensed Refills Start Date End Date Status glucosamine/chondro major A/C/Mn (GLUCOSAMINE-CHONDROIT -VIT C-MN ORAL) Take one capsule daily 5 active cefdinir (OMNICEF) 300 mg capsule Take 1 capsule (300 mg total) by mouth 2 (two) times a day for 3 days. 5 active doxycycline (MONODOX) 100 mg capsule Take 1 capsule (100 mg total) by mouth at bedtime for 1 day, THEN 1 capsule (100 mg total) 2 (two) times a day for 3 days. Take with at least 8 ounces (large glass) of water, do not lie down for 30 minutes after. Administer 2 hours before or after multivitamins, antacids, or other products containin 5 active rivaroxaban (XARELTO) tablet 20 mg 20 mg, oral, Daily with dinner, First dose (after last modification) on Thu11/09/24 at 1800, Indication: Atrial Fibrillation 5 active lidocaine (XYLOCAINE) 5 % ointment Topical, Daily PRN, mild pain, Starting on Thu11/08/24 at 1849, Use for dressing changes to be applied to wounds as needed for pain. 5 active zinc oxide (DESITIN) 40 % paste Topical, 2 times daily, First dose on Thu11/07/24 at 2100, Clean wounds with Dakins. Pat dry. Apply bactroban onto a CURaD oil emulsion dressing then apply onto wounds. Apply triad to hieu wounds a thin layer. The apply nonadherent dressing with dressing on top to secure in place. 5 active vancomycin (VANCOCIN) 1,250 mg in sodium chloride 0.9 % 250 mL IVPB 1,250 mg, intravenous, at 166.7 mL/hr, Administer over 90 Minutes, Every 24 hours, First dose (after last modification) on Thu11/07/24 at 1800, For 5 doses, Indication: Skin/Soft Tissue, Pneumonia, Community Acquired 5 11/10/19 aborted vancomycin (VANCOCIN) 1,000 mg in sodium chloride 0.9 % 250 mL IVPB 1,000 mg, intravenous, at 250 mL/hr, Administer over 60 Minutes, Every 12 hours, First dose (after last modification) on Thu11/10/24 at 0530, For 14 doses, Indication: Skin/Soft Tissue, Pneumonia, Community Acquired 5 11/08/19 active acetaminophen (TYLENOL) tablet 650 mg 650 mg, oral, Every 6 hours PRN, mild pain, headaches, Starting on Thu11/07/24 at 1625 5 active doxycycline (MONODOX) capsule 100 mg 100 mg, oral, Every 12 hours scheduled, First dose on Thu11/07/24 at 0900, For 7 days, Take with at least 8 ounces (large glass) of water, do not lie down for 30 minutes after. Administer 2 hours before or after multivitamins, antacids, or other products containing polyvalent cations (i.e., calcium, 5 active sodium hypochlorite (DAKIN'S (HALF-STRENGTH)) external solution Topical, 2 times daily, First dose on Thu11/07/24 at 1745, Clean wounds with Dakins. Pat dry. Apply bactroban onto a CURaD oil emulsion dressing then apply onto wounds. Apply triad to hieu wounds a thin layer. The apply nonadherent dressing with dressing on top to secure in place. active sodium chloride 0.9 % infusion 50 mL/hr, intravenous, Continuous, Starting on Thu11/06/24 at 1049 11/11/19 aborted rivaroxaban (XARELTO) tablet 15 mg 15 mg, oral, Daily with dinner, First dose (after last modification) on Thu11/06/24 at 1700, Best administered with food or immediately before tube feedings. If ordered via NG or G-tube route, crush and mix with 50 mL water; give within 4 hours of mixing., Indication: Atrial Fibrillation 11/10/19 aborted albuterol 2.5 mg /3 mL (0.083 %) nebulizer solution 2.5 mg 2.5 mg, nebulization, Every 6 hours PRN, wheezing, Starting on Thu11/06/24 at 1048 11/08/19 aborted cefTRIAXone (ROCEPHIN) 2 g in sterile water 20 mL IV syringe 2 g, intravenous, at 400 mL/hr, Administer over 3 Minutes, Every 24 hours, First dose on 11/07/24 at 1315, For 7 days, Do not administer simultaneously with any calcium containing solutions via a Y-site in any patient., Indication: Skin/Soft Tissue, Pneumonia, Community Acquired 11/08/19 active acetaminophen (TYLENOL) tablet 1,000 mg 1,000 mg, oral, Once, On Thu11/06/24 at 0617, For 1 dose 5 11/07/19 completed sodium chloride 0.9 % bolus 1,000 mL 1,000 mL, intravenous, at 1,000 mL/hr, Administer over 1 Hours, Once, On Thu11/06/24 at 0755, For 1 dose 5 11/07/19 completed sodium chloride 0.9 % bolus 500 mL 500 mL, intravenous, at 1,000 mL/hr, Administer over 30 Minutes, Once, On Thu11/06/24 at 0611, For 1 dose 5 11/07/19 completed ascorbic acid (VITAMIN C) tablet 500 mg 500 mg, oral, Daily, First dose on 11/06/24 at 1049 5 active aspirin EC tablet 81 mg 81 mg, oral, Daily, First dose on 11/06/24 at 1049, Do not crush, chew, or split. 5 active benzocaine-menthoL (CEPACOL SORE THROAT) 15-3.6 mg lozenge 1 lozenge 1 lozenge, Mouth/Throat, Every 2 hours PRN, sore throat, Starting on 11/06/24 at 1528 5 active benzonatate (TESSALON) capsule 200 mg 200 mg, oral, 3 times daily PRN, cough, Starting on 11/06/24 at 1109, Do not crush or chew. 5 active calcium carbonate (TUMS) chewable tablet 1,000 mg 1,000 mg, oral, 4 times daily PRN, heartburn, indigestion, Starting on Thu11/06/24 at 1323, Ordered as calcium carbonate. 500 mg calcium carbonate = 200 mg elemental calcium. 5 active dilTIAZem (CARDIZEM) injection 10 mg 10 mg, intravenous, Once, On 11/06/24 at 0617, For 1 dose, For IV Push - administer over 2 minutes with continuous ECG and blood pressure monitoring 5 active dilTIAZem CD (CARDIZEM CD) 24 hr capsule 120 mg 120 mg, oral, Daily, First dose on 11/06/24 at 1049, Do not crush, chew, or split. 5 active formoterol (PERFOROMIST) 20 mcg/2 mL nebulizer solution 20 mcg [Order 1 Start] Name: formoterol (PERFOROMIST) 20 mcg/2 mL nebulizer solution 20 mcg Signed Summary: 20 mcg, nebulization, 2 times daily, First dose on 11/06/24 at 1049, Therapeutic substitution for TRELEGY ELLIPTA is budesonide neb once daily, formoterol neb twice daily, and revefenacin neb once 5 active ipratropium-albuteroL (DUONEB) 0.5-2.5 mg/3 mL nebulizer solution 3 mL 3 mL, nebulization, Every 6 hours PRN, wheezing, shortness of breath, Starting on 11/06/24 at 1523 5 active magnesium oxide (MAG-OX) tablet 400 mg 400 mg, oral, Daily, First dose on 11/06/24 at 1049 5 active methocarbamoL (ROBAXIN) tablet 750 mg 750 mg, oral, 4 times daily PRN, muscle spasms, Starting on 11/06/24 at 1755 5 active ondansetron ODT (ZOFRAN-ODT) disintegrating tablet 4 mg [Order 1 Start] Name: ondansetron ODT (ZOFRAN-ODT) disintegrating tablet 4 mg Signed Summary: 4 mg, oral, Every 8 hours PRN, vomiting, nausea, Starting on 11/06/24 at 1754, -Give IV if patient is unable to take orally. -If inadequate response within 30 minutes, proceed to next-line agent or contac 5 active gentamicin (GARAMYCIN) 0.1 % ointment Apply topically 1 (one) time each day. 5 active diltiazem (CARDIZEM CD) 120 MG 24 hr capsule Take 1 capsule (120 mg total) by mouth daily. 5 active dilTIAZem CD (CARDIZEM CD) 120 mg 24 hr capsule 5 active dilTIAZem CD (CARDIZEM CD) 120 mg 24 hr capsule 5 active lidocaine (XYLOCAINE) 4 % external solution Apply topically 1 (one) time each day. 5 active lidocaine (XYLOCAINE) 4 % external solution [The details of the medication are not available because there are pending changes by a home health clinician.] 5 active mupirocin (BACTROBAN) 2 % ointment Apply topically 1 (one) time each day. 5 active hydrOXYzine pamoate (VistariL) 25 mg capsule Take 1 capsule (25 mg total) by mouth 3 (three) times a day if needed for itching for up to 10 days. 4 05/15/20 24 active hydrOXYzine pamoate (VistariL) 25 mg capsule Take 1 capsule (25 mg total) by mouth 3 (three) times a day if needed for itching for up to 10 days. 4 active acetaminophen (TYLENOL) 325 MG tablet Take 2 tablets (650 mg total) by mouth 4 times daily (every 6 hours) as needed for moderate pain or headaches. 4 04/14/20 active metoPROLOL TARTRATE (LOPRESSOR) 25 MG tablet Take 1 tablet (25 mg total) by mouth 2 times a day. 4 04/14/20 active bumetanide (BUMEX) 1 mg tablet Take 1 tablet by mouth daily. 4 active predniSONE (DELTASONE) 20 MG tablet Take by mouth. 4 01/13/20 active predniSONE (DELTASONE) tablet 20 mg Take 2.5 tablets (50 mg total) by mouth daily for 2 days, THEN 2 tablets (40 mg total) daily for 3 days, THEN 1.5 tablets (30 mg total) daily for 3 days, THEN 1 tablet (20 mg total) daily for 3 days, THEN 0.5 tablets (10 mg total) daily for 3 days. 4 01/13/20 active Fluticasone-Umeclidin- Vilant 100-62.5-25 MCG/ACT AEPB 1 Inhalation 1 Inhalation, Inhaled, Daily, First dose on Thu12/28/23 at 0800Patient Supplied Medication_Remove under OverrideDrug Name: Kevin Ellipta 100-62.5-25 MCG/ACT AEPBForm: Inhaler 4 active sodium chloride 0.9% (NS) infusion 75 mL/hr, Intravenous, Continuous, Starting on Thu12/26/23 at 0745, For 24 hours 4 12/27/19 aborted Chlorhexidine Gluconate 4 % SOLN 1 application. 1 application., Topical, Daily, First dose on Thu12/26/23 at 1300Apply to bilateral legs as part of daily dressing changes. 4 active silver sulfADIAZINE (SILVADENE) 1 % cream Topical, Daily, First dose on Thu12/26/23 at 1230Apply to bilateral legs with daily dressing changes. 4 active sodium chloride 0.9% bolus (NS) 1,000 mL 1,000 mL, Intravenous, at 1,000 mL/hr, Once, On Thu12/25/23 at 1200, For 1 dose 4 12/25/19 completed ceFEPime (MAXIPIME) injection 2 g 2 g, Intravenous, Every 12 hours, First dose on Thu12/25/23 at 1300If ordered IV then reconstitute with 10 mL sterile water or normal saline and administer IV push over 3 minutes.What is your current facility? [facility] Location 4 active ondansetron (ZOFRAN) injection 4 mg 4 mg, Intravenous, Every 6 hours PRN, nausea, vomiting, Starting on Thu12/25/23 at 1248IV push over 2 to 5 minutes. 4 active Xarelto 20 MG tablet 11/30 4 active bumetanide (BUMEX) 2 MG tablet Take 1 tablet (2 mg total) by mouth daily. 4 12/28/19 active metoPROLOL TARTRATE (LOPRESSOR) 50 MG tablet Take 1 tablet (50 mg total) by mouth 2 times a day. 4 active clobetasol (TEMOVATE) 0.05 % ointment APPLY TO RASH TWICE DAILY FOR 10 DAYS THEN HOLD ONE WEEK. MAY REPEAT NEEDED 4 active cefdinir (OMNICEF) 300 MG capsule Take 1 capsule (300 mg total) by mouth 2 (two) times a day for 6 days. 4 10/29/19 active predniSONE (DELTASONE) tablet 20 mg Take 2 tablets (40 mg total) by mouth daily for 5 days. 4 10/28/19 active melatonin 3 MG tablet 3 mg 3 mg, Oral, Every Night at Bedtime, First dose on Thu10/21/23 at 2200 4 10/21/19 active spironolactone (ALDACTONE) tablet 50 mg 50 mg, Oral, Daily, First dose on Thu10/22/23 at 0900Reproductive/B reast Feeding Risk: Use appropriate precautions for handling and disposal. 4 active methylPREDNISolone sodium succinate (SOLU-Medrol) injection 125 mg 125 mg, Intravenous, Once, On Thu03/11/24 at 2230, For 1 doseAdminister over 2-3 minutes 4 03/12/20 24 completed azithromycin (ZITHROMAX) 500 mg in sodium chloride (NS) 0.9 % 250 mL IVPB-V2B 500 mg, Intravenous, Administer over 60 Minutes, Once, On Thu10/21/23 at 1415, For 1 dose 4 10/21/19 24 completed acetaminophen (TYLENOL) tablet 650 mg 650 mg, Oral, Every 6 hours PRN, moderate pain (4-6), mild pain (1-3), Starting on Thu12/25/23 at 1257 4 active timolol (TIMOPTIC) 0.5 % ophthalmic solution MIX WITH MUPIROCIN OINTMENT AND SILVADENE CREAM AND APPLY MIXTURE TWICE DAILY TO LEG WOUNDS 4 active timolol (TIMOPTIC) 0.5 % ophthalmic solution MIX WITH MUPIROCIN OINTMENT AND SILVADENE CREAM AND APPLY MIXTURE TWICE DAILY TO LEG WOUNDS 4 active timolol (TIMOPTIC) 0.5 % ophthalmic solution MIX WITH MUPIROCIN OINTMENT AND SILVADENE CREAM AND APPLY MIXTURE TWICE DAILY TO LEG WOUNDS 4 active fluticasone-umeclidini um-vilanterol (TRELEGY ELLIPTA) 200-62.5-25 mcg/act inhaler Inhale 1 puff daily. 4 active Trelegy Ellipta 100-62.5-25 MCG/ACT AEPB 1 puff by Inhaled route daily. 4 active spironolactone (ALDACTONE) tablet 50 mg Take 1 tablet (50 mg total) by mouth daily. 4 active digoxin (LANOXIN) 125 mcg (0.125 mg) tablet Take 1 tablet (125 mcg total) by mouth daily. 4 active betamethasone dipropionate (DIPROSONE) 0.05 % cream APPLY TO PROBLEM AREAS TWICE DAILY NO LONGER THAN 2 WEEKS THEN DAILY NEEDED 4 active spironolactone (ALDACTONE) tablet 25 mg Take 1 tablet (25 mg total) by mouth daily. 3 06/02/19 24 active digoxin (LANOXIN) 125 MCG tablet Take 2 tablets today (Thursday) and tomorrow (Thursday) Then take 1 tablet daily 3 08/18/19 24 aborted spironolactone (ALDACTONE) 25 mg tablet Take 0.5 tablets (12.5 mg total) by mouth daily. 2 active furosemide (LASIX) 20 mg tablet Take 1 tablet (20 mg total) by mouth daily. 2 active metoprolol tartrate (LOPRESSOR) 50 mg tablet TAKE 1 TABLET BY MOUTH TWICE DAILY 2 active albuterol 108 (90 Base) MCG/ACT inhaler Inhale 2 puffs into the lungs 4 (four) times a day. 1 active albuterol HFA (PROAIR HFA ; PROVENTIL HFA ; VENTOLIN HFA) 90 mcg/actuation inhaler Inhale 2 puffs into the lungs 4 (four) times a day. 1 active albuterol HFA (PROAIR HFA ; PROVENTIL HFA ; VENTOLIN HFA) 90 mcg/actuation inhaler Inhale 2 puffs into the lungs 4 (four) times a day. 1 active fluticasone-umeclidini um-vilanterol (Trelegy Ellipta) 200-62.5-25 mcg inhaler Take 1 puff by mouth daily. 1 active fluticasone-umeclidini um-vilanterol (Trelegy Ellipta) 200-62.5-25 mcg inhaler Take 1 puff by mouth daily. 1 active Trelegy Ellipta 200-62.5-25 MCG/INH AEPB Take 1 puff by mouth daily. 1 active rivaroxaban (XARELTO) 20 mg tablet Take 1 tablet (20 mg total) by mouth every evening. 1 active rivaroxaban (XARELTO) 20 mg tablet Take 1 tablet (20 mg total) by mouth every evening. 1 active ascorbic acid (VITAMIN C) 250 mg tablet Take 500 mg by mouth daily. active ascorbic acid (VITAMIN C) 250 mg tablet Take 500 mg by mouth daily. active aspirin 81 mg EC tablet Take 81 mg by mouth daily. active aspirin 81 mg EC tablet Take 81 mg by mouth daily. active Glucosamine-Chondroit- Vit C-Mn (GLUCOSAMINE CHONDR 1500 COMPLX PO) Take by mouth. active magnesium oxide (MAG-OX) 400 mg (241.3 elemental magnesium) tablet Take 1 tablet (400 mg total) by mouth daily. active magnesium oxide (MAG-OX) 400 MG tablet Take 1 tablet (400 mg total) by mouth daily. active Melatonin 5 MG CAPS Take 5 mg by mouth every night at bedtime. active vitamin C (ASCORBIC ACID) 250 MG tablet Take 2 tablets (500 mg total) by mouth daily. active zinc sulfate (ZINCATE) 220 (50 Zn) MG capsule Take 1 capsule (220 mg total) by mouth daily. active zinc sulfate (ZINCATE) 220 mg (50 mg elemental zinc) capsule Take 1 capsule (220 mg total) by mouth daily. active Allergies Allergen Reaction Severity Comment Documented Date Source Statu s PENICILLIN 11/06/2024 [email or web address] active FUROSEMIDE ITCHING 06/02/2023 [facility] active ADHESIVES/TAPE RASH/DERMATITI S Paper tape okay 11/05/2018 [facility] active ONION NAUSEA AND VOMITING 11/05/2018 [facility] active ADHESIVE RASH Paper tape okay [email or web address] ADHESIVE TAPE RASH Paper tape okay [id number] ADHESIVE TAPE-SILICONES RASH Paper tape okay [email or web address] Problems Problem Status Onset Date Problem Type Date of Resolution Source Open wound of left lower leg active 2024-04-06 ProblemAct [facility] Acute bilateral deep vein thrombosis (DVT) of femoral veins ([facility]/HCC V24, CMS/HCC V28) active 2021-01-04 ProblemAct [facility] Abdominal aortic aneurysm (AAA) greater than 5.5 cm in diameter in male ([facility]/HCC V24) active 2024-11-06 ProblemAct [facility] Paroxysmal atrial fibrillation (CMS/HCC V24, CMS/HCC V28) active 2021-02-11 ProblemAct [facility] Right bundle branch block active 2022-06-20 ProblemAct [facility] 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 (CMS/HCC V24, CMS/HCC V28) active 2018-02-08 ProblemAct [facility] DVT of lower extremity, bilateral (CMS/HCC V24, CMS/HCC V28) active 2021-01-04 ProblemAct [facility] Non-pressure chronic ulcer of left lower leg with fat layer exposed ([facility] V24, [facility] [facility] V[facility] active 2024-10-19 ProblemAct [facility] Abnormal ECG active 2022-06-20 ProblemAct [facility] SFRAN Non-pressure chronic ulcer of other part of right lower leg with fat layer exposed ([facility] V24, [facility] V28[facility] active 2024-09-21 ProblemAct [facility] Left ventricular hypertrophy active 2016-09-05 ProblemAct [facility] 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 ([facility] V24, [facility] V28) active 2024-06-07 ProblemAct [facility] Lymphedema active 2024-06-21 ProblemAct [facility]_THSF RAN Atrial fibrillation with RVR ([facility] V24, [facility] V28) active 2024-11-06 ProblemAct [facility] Hypertension active 2022-06-20 ProblemAct [facility] SFRAN Abnormal ECG active ProblemAct CTTHJM H Sepsis active 2023-12-25 ProblemAct CTTHJMH Pneumonia of both lungs due to infectious organism active EncounterDiagnosisAct CT_THJMH Bilateral leg edema active EncounterDiagnosisAc t CT_THJMH SIRS (systemic inflammatory response syndrome) ([facility] V24, [facility] V28) active EncounterDiagnosisAct CT_THJ MH Community acquired pneumonia of left lower lobe of lung active 2023-10-21 ProblemAct [facility] Leg wound, right, subsequent encounter active EncounterDiagnosisAct CT_THJMH Hypertension active ProblemAct CTTHJM H Acute hypoxic respiratory failure ([facility] V24, [facility] V28) active EncounterDiagnosisAct CT_THJ MH History of cardiac catheterization active ProblemAct CTTHJ[facility] COPD with acute exacerbation active 2023-10-21 ProblemAct CTTHJ[facility] Skin infection active EncounterDiagnosisAct CT_THJMH Persistent atrial fibrillation active 2023-03-16 ProblemAct [facility] Leg wound, left, subsequent encounter active EncounterDiagnosisAct CT_THJMH Right bundle branch block active ProblemAct CTTHJ[facility] Cellulitis active 2024-03-12 ProblemAct [facility] SOB (shortness of breath) active EncounterDiagnosisAct [facility] Lactic acidosis active 2024-03-12 ProblemAct [facility] Acute hypoxic respiratory failure active 2024-03-12 ProblemAct [facility] COPD exacerbation active 2024-03-12 ProblemAct [facility] Immunizations Vaccine Date Source Lot Number Status Moderna SARS-CoV-2 COVID-19, mRNA, LNP-S, preservative free 03/28/2021 [facility]_THSFRAN completed Moderna SARS-CoV-2 COVID-19, mRNA, LNP-S, preservative free 08/06/2020 CT_THSFRAN [id number] completed Moderna SARS-CoV-2 COVID-19, mRNA, LNP-S, preservative free 07/09/2020 [facility]_THSFRAN [id number] completed Encounters Encounter Type Encounter Reason Primary Diagnosis Location Date Inpatient sob Unspecified atri al fibrillation ([facility] V24, [facility] V28) [facility] 11/06/2024 Ambulatory Wound Care Wound [facility] 10/19/2024 Ambulatory Shortness of breath Shortness of breath [facility] 10/10/2024 Ambulatory Wound Care W[facility] 10/05/2024 Ambulatory Wound Care Wound Care [facility] 09/21/2024 Ambulatory Shortness of breath Shortness of breath [facility] 08/22/2024 Ambulatory Emphysema, unspecified Emphysema, unspecified [facility] 08/11/2024 Ambulatory Wound Care Unspecified open wound, left lower leg, subsequent encounter [facility] 08/01/2024 Ambulatory Wound Care 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 [facility] 07/19/2024 Ambulatory Wound Care Wound Care [facility] 07/01/2024 Ambulatory Wound Care Wound Care [facility] 06/21/2024 Ambulatory Wound Care Wound Care [facility] 06/07/2024 Ambulatory Wound Care Wound Care [facility] 05/18/2024 Ambulatory Wound Care Unspecified open wound, left lower leg, subsequent encounter [facility] 05/04/2024 Ambulatory Shortness of breath Shortness of breath [facility] 04/26/2024 Ambulatory Wound Care Unspecified open wound, left lower leg, subsequent encounter [facility] 04/20/2024 Ambulatory Wound Care Unspecified open wound, left lower leg, subsequent encounter [facility] 04/06/2024 Ambulatory [facility] 03/23/2024 Ambulatory [facility] 03/23/20 Inpatient Chronic obstructive pulmonary disease with (acute) exacerbation Chronic obstructive pulmonary disease with (acute) exacerbation [facility] 03/12/2024 Emergency Hypoxemia Hypoxemia [facility] 03/11/20 Ambulatory [facility] 03/09/2024 Ambulatory [facility] 03/09/20 24 Ambulatory [facility] 02/18/20 Ambulatory [facility] 02/10/20 Ambulatory [facility] 02/03/20 Ambulatory Foreign body of alimentary tract, part unspecified, initial encounter Foreign body of alimentary tract, part unspecified, initial encounter [facility] 01/22/2024 Ambulatory Shortness of breath Shortness of breath [facility] 01/05/2024 Inpatient Sepsis, unspecified organism Sepsis, unspecified organism [facility] 12/25/2023 Inpatient Chronic obstructive pulmonary disease with (acute) exacerbation Chronic obstructive pulmonary disease with (acute) exacerbation [facility] 10/21/2023 Ambulatory Localized edema Localized edema [facility] 06/09/2023 Ambulatory Other disorders of electrolyte and fluid balance, not elsewhere classified Other disorders of electrolyte and fluid balance, not elsewhere classified [facility] 05/12/2023 Ambulatory Fluid overload, unspecified Fluid overload, unspecified [facility] 04/24/2023 Emergency Heart failure, unspecified Heart failure, unspecified [facility] 2023 Ambulatory Chronic systolic (congestive) heart failure Chronic systolic (congestive) heart failure [facility] 12/26/2022 Ambulatory Chronic systolic (congestive) heart failure Chronic systolic (congestive) heart failure [facility] 11/17/2022 Care Team Organization Name Specialty Phone Email Start Date End Da te [facility] Care [facility] 12/09/2024 12/15/2024 [facility] 10/12/2024 [facility] NANCI REBOLLEDO, Primary Care 04/08/2024 [facility] NANCI REBOLLEDO, Primary Care 04/06/2024 [facility] NANCI REBOLLEDO, Primary Care 01/05/2024 11/09/19 [facility] NANCI REBOLLEDO, Primary Care 01/05/2024 [facility] 06/21/2023 [facility] 11/23/2022 12/13/2024 [facility] 11/1711/17/2022
--- OUTSIDE RECORDS SUMMARY | 2024-12-28 15:49 | XMS_ITS | Encounter Summary ---
Author Organization [facility] Address [address] [place] [address] Care Team Providers Care Color Specialist Name Role Phone Alton Lovelace MD Unavailable [phone] Alton Lovelace MD Primary Care Provider [phone] Eric Barth MD Unavailable [phone] Encounter Details Date Type Department Care Team (Late st Contact Info) Description 03/07/2024 Telephone [facility] [address] [id number] Eric Barth MD [address] [place] [id number] Social History Tobacco Use Types Packs/Day Years [...] Care Team (Late st Contact Info) Description 12/30/2024 12:20 PM EDT Office Visit [facility] [place] [address] [id number] Eric Barth MD [address] [address] documented as of this encounter Visit Diagnoses Not on filedocumented in this encounter Additional Health Concerns Infection Onset Date Last Indicated Resolved Time R/O Respiratory Disease 03/12/2024 03/12/202403/01 11:42 PM EDT documented as of this encounter Care Teams Color Specialist Relationship Specialty Start Date End Date Alton Lovelace MD [address] [facility] [address] [place] [address] PCP - APNCT [employer] Attributed 06/01/22 Alton Lovelace MD [address] [place] [address] [place] [address] PCP - General Internal Medicine 12/16/23 Eric Barth MD [address] [address] Primary Cotton Program Technician Cardiovascular Disease 12/24/23 documented as of this encounter
--- OUTSIDE RECORDS SUMMARY | 2024-12-28 15:49 | XMS_ITS | Clinical Summary ---
Author Organization [facility] Address [address] [place] [address] Care Team Providers Care Classroom Monitor Name Role Phone Alton Lovelace MD Primary Care Provider [phone] Allergies Active Allergy Reactions Criticality Noted Date [...] 116 03/12/2024 2:00 AM EDT Temperature 36.8 C (98.3 F) 03/12/2024 2:00 AM EDT Respiratory Rate 58 03/12/2024 2:00 AM EDT [...] 1-dose 75+ series) 2015 Influenza Vaccine (#1) 2025 Hepatitis B Vaccines Aged Out No long er eligible based on patient's age to complete this topic RSV Ped < 20 months Aged Out No longe r eligible based on patient's age to complete this topic Medical Devices Implanted Type Area Waxer Tender Device Identifier Shelf Expiration Date Model / Serial / Lot Lens Acrysof Iq Natrl 0d +22.5d L 13mm 6mm Acrylic 118.7 A - [id number] - [id number] Implanted:Qty: 1 on 11/10/2018 by Rashard Villalobos MD at [facility] Location Left: Eye [employer] 09/28/2022 [id number] / [id number] / Lens Acrysof 0d +23d L 13mm 6mm Acrylic 118.7 A - [id number] - [id number] Implanted:Qty: 1 on 11/16/2018 by Rashard Villalobos MD at [facility] Location Right: Eye [employer] 05/31/2022 [id number] / [id number] / Advance Directives For more information, please contact: [phone] Documents on File Type Date Recorded Patient Utility Arborist Expl anation Advance Directive and Living Will [...] the following way: Discussed . Care Teams Classroom Monitor Relationship Specialty Start Date End Date Alton Lovelace MD [address] [place] [address] PCP - General Internal Medicine 07/20/15
== END 2024-12-28 15:56 | disposition home or self-care (01) ==
LOC: HO.HKAE 15:06
PROVIDERS: PCP Internal Medicine; Visit Provider Internal Medicine Hypertension Specialist
DX: N18.9 Chronic kidney disease, unspecified (principal)
CPT/HCPCS: 99214

== ENCOUNTER → 2024-12-28 15:06 | Outpatient (BNVA) | payer MEDICARE, SELFPAY | PROVIDERS: PCP Internal Medicine; Visit Provider Internal Medicine Hypertension Specialist | DX: I13.0 Hypertensive heart and chronic kidney disease with heart failure and stage 1 through stage 4 chronic kidney disease, or unspecified chronic kidney disease (principal); I50.9 Heart failure, unspecified; N18.30 Chronic kidney disease, stage 3 unspecified | CPT/HCPCS: 99212 ==

== ENCOUNTER 2025-03-08 16:04 | Outpatient (AMB) | payer MEDICARE, SELFPAY ==
[2025-03-08 16:03] VITALS: BP 112/82
--- NOTE | 2025-03-08 16:03 | HO.NEPHOV ---
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: No Accompanied by: Spouse Allergies adhesive tape Allergy (Unknown, Verified 03/08/25 16:06) Hives furosemide Allergy (Unknown, Verified 03/08/25 16:06) Hives onion Allergy (Unknown, Verified 03/08/25 16:06) Hives Medication List - Last Reconciled 03/08/25 by Blake Craig MD albuterol sulfate 90 mcg/actuation 2 inhalations inhalation Q4-6H PRN ascorbic acid (vitamin C) 500 mg PO DAILY aspirin 81 mg PO DAILY benzonatate mg PO DAILY PRN bumetanide 1 mg PO BID PRN diltiazem HCl CD 120 mg PO DAILY ajedmcemmoy-ynrpqdstj-fwpvzyiz 100-62.5-25 mcg (Trelegy Ellipta) 1 ea inhalation DAILY glucosamine sulfate (Glucosamine) 500 mg PO DAILY magnesium oxide 500 mg PO DAILY melatonin 5 mg PO PRN mupirocin calcium 2% appl topical rivaroxaban (Xarelto) 15 mg PO DAILY rivaroxaban (Xarelto) 15 mg PO DAILY silver sulfadiazine 1% (SSD) appl topical zinc acetate (Galzin) 50 mg PO DAILY HPI Comments Details: 84-year-old man with a history of longstanding hypertension congestive heart failure and COPD has been referred for evaluation of chronic kidney disease. Serum creatinine has been staying between 1.4 and 1.6 mg/dL. He was hospitalized at [facility] for COPD. He was on high dose of diuretics which was lowered due to low blood pressure. He also has a history of abdominal aortic aneurysm measuring 4.4 cm. He was seen by vascular surgery. History of chronic venous insufficiency with stasis dermatitis. He is currently being treated by the wound clinic Today was accompanied by his . Jose has history of chronic smoked for several years. He says he still smokes 1 or 2 cigarettes a day. Interestingly he says that he is able to breathe better when he smokes.!! No urinary symptoms like dysuria urgency increased frequency. He has shortness of breath on exertion no chest pain. No nausea or vomiting. 08/24/24 Gained 6 lbs Bumex was doubled for a week. Work in progress for dyspnea including pulm evaluation Still smokes. 10/12/24 Weight unchanged Digoxin has be discontinued by cardiology Diltiazem has been ordered 03/08/25 - The patient is an 85-year-old male presenting for a nephrology follow-up due to concerns raised by a vice president of operations regarding recent blood work results. - Chronic Kidney Disease: Medication adjustments include reduced Xarelto and discontinued spironolactone due to hyperkalemia. - Peripheral Edema: Persistent edema with ankle fluid leakage, requiring frequent bandage changes. - Hypertension: Blood pressure controlled at 112/82 mmHg. - Hyperkalemia: Elevated potassium levels led to spironolactone discontinuation. - Dyspnea: Chronic dyspnea, stable without recent worsening. - Venous Ulcer: History of venous ulcers with current fluid leakage. - History of Smoking: Quit smoking in October. 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 of skin Right bundle branch block (RBBB) Atrial fibrillation DVT (deep venous thrombosis) Emphysema lung Mixed hyperlipidemia Essential hypertension Secondary hypercoagulable state Chronic systolic (congestive) heart failure 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 Diabetic foot ulcers Non-pressure chronic ulcer of skin of other sites with unspecified severity Chronic kidney disease, stage 2 (mild) Surgical History History of knee surgery (~2013) History of hernia repair Physical Exam Vital Signs: Last Vital Signs BP 112/82 03/08/25 16:03 Const Nutritional Appearance: obese Neck Neck: Yes supple Resp Auscultation: rhonchi Cardio Palpation: no palpable S3 Heart sounds: no rubs GI Palpation (GI): Soft to palpation Auscultation: normal bowel sounds Neuro Motor exam (neuro): no asterixis Extrem General: Yes edema Results Reviewed Results Reviewed: Cr 2.0 Hgb 13 UA: no RBC or protein 10/05/24 BUN 52 Cr 2.0 K 5.2 03/08/25 BUN 63 creatinine 2.2 sodium 134 Assessment & Plan Assessment & Plan (1) CKD (chronic kidney disease): Code(s): N18.9 - Chronic kidney disease, unspecified Category: Medical Plan Elderly man with a history of longstanding COPD hypertension and congestive heart failure has stage 3 chronic kidney disease. 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 Bump in creatinine due to hypoperfusion. Recent urine sediments were bland therefore glomerular nephritis or interstitial disease seem unlikely. Recommendations Low-sodium diet Continue current dose of diuretics. Continue to avoid nephrotoxic agents including NSAIDs. Optimize blood pressure and continue to avoid hypotension. workup for CKD ; renal ultrasonogram- No hydronephrosis. Renal function is stable Creatinine unchanged at 2.0 Mild hyperkalemia in a setting of CKD and SPironolactone He has been eating more Tomatoes/potatoes. Discussed low K diet If K remains persistently elevated >5.5, despite dietary restriction, would add Lokelma 12/28/24 Recent Cr is 1.9 and stable Potassium at 5.0 No changes made today 03/08/25 Advanced CKD - recent BUN Cr are 60/2.2 No indication for dialysis Keep Bumex 1 mg QD Agree with stopping Spironolactone Needs to stay on low salt diet Orders: Orders Basic Metabolic Panel 2 Weeks N18.9 - Chronic kidney disease, unspecified Coding Level of Care Code Est Pt Level 4 (15260) Diagnoses CKD (chronic kidney disease) N18.9
== END 2025-03-08 16:26 | disposition home or self-care (01) ==
LOC: HO.HKAE 16:04
PROVIDERS: PCP Internal Medicine; Visit Provider Internal Medicine Hypertension Specialist
DX: N18.9 Chronic kidney disease, unspecified (principal)
CPT/HCPCS: 99214

== ENCOUNTER → 2025-03-08 16:04 | Outpatient (BNVA) | payer MEDICARE, SELFPAY | PROVIDERS: PCP Internal Medicine; Visit Provider Internal Medicine Hypertension Specialist | DX: I13.0 Hypertensive heart and chronic kidney disease with heart failure and stage 1 through stage 4 chronic kidney disease, or unspecified chronic kidney disease (principal); Z72.0 Tobacco use; N18.30 Chronic kidney disease, stage 3 unspecified; I50.9 Heart failure, unspecified; R06.02 Shortness of breath; R60.0 Localized edema; E87.5 Hyperkalemia; Z79.82 Long term (current) use of aspirin | CPT/HCPCS: 99212 ==